=== PATIENT | female | born 1960 | race Caucasian/White ===

== ENCOUNTER 2018-03-03 07:29 | Inpatient (IN) ==
--- NOTE | 2018-03-03 07:43 | ED ---
HPI General Chief complaint: Neuro Symptoms/Deficit Stated complaint: Neuro Time Seen by Provider: 03/03/18 07:36 Source: patient, EMS and RN notes reviewed Mode of arrival: EMS History of Present Illness HPI narrative: 57yF presenting with right upper and lower extremity weakness and slurred speech. 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 She says that she does not take any anticoagulants or antiplatelets. She is currently altered and unable to provide further details of HPI or ROS. Related Data Home Medications Medication Instructions Recorded Confirmed No Known Home Medications 03/03/18 03/03/18 Allergies Allergy/AdvReac Type Severity Reaction Status Date / Time Penicillins Allergy Intermediate Hives Verified 03/03/18 07:36 Sulfa (Sulfonamide Allergy Intermediate Hives Verified 03/03/18 07:36 Antibiotics) Review of Systems ROS Unobtainable unobtainable due to mental status [facility] Medical History Medical History No significant past medical history (Acute) Surgical History Surgical History No history of previous surgery (Acute) Social History Social History Substance History: No History of Abuse Second Hand Smoke Exposure: No Smoking Status: Never smoker How Often Do You Have a Drink Containing Alcohol: Never Recent Travel in [facility] within the Last 8 Weeks: No Recent Out of Country Travel within the Last 8 Weeks: No Exam Const General: healthy appearing [facility] Other: Right lower facial droop, tongue and uvula midline Eyes Other: Pupils 2 mm and reactive bilaterally Chest Chest: normal inspection of the chest Resp Other: Clear to auscultation bilaterally Cardio Rate: regular rate Rhythm: regular rhythm GI Palpation: soft, no guarding and nontender Auscultation: normal bowel sounds Skin General: no rashes or lesions noted Neuro Other: Please see NIHSS as documented on arrival Weakness of right upper and lower extremity Sensation intact throughout Right lower facial droop Slurred speech Altered, unable to answer complex questions Extrem Other: No lower extremity edema Procedures Intubation Time Out Performed: Yes Sedative: etomidate Mg Given: 20 Paralytic: succinylcholine Mg Given: 100 Laryngoscope: Zoila ET Tube Size: 7.5 ET Tube Uncuffed: Yes Tube Secured Depth (cm): 25 Tube Secured Location: teeth Tube Placement Confirmation: visualized tube passing through cords, equal breath sounds bilaterally and no breath sounds over epigastrium Patient Tolerated Procedure: well and no complications Intubation Complications: none Course Consultations Consultation #1: Case discussed with Dr. Saumel (neurosurgery), who recommends keeping the patient's systolic BP 120-130. Cardene drip ordered. Time: 08:22 Initial Documented Vital Signs Temperature 98.0 F 03/03/18 07:33 Pulse Rate 76 03/03/18 07:33 Respiratory Rate 20 03/03/18 07:33 Blood Pressure 176/89 H 03/03/18 07:33 Pulse Oximetry 98 03/03/18 07:33 Last Documented Vital Signs Temperature 97.9 F 03/03/18 08:58 Pulse Rate 70 03/03/18 08:58 Respiratory Rate 14 03/03/18 08:58 Blood Pressure 145/84 H 03/03/18 08:58 Pulse Oximetry 99 03/03/18 08:49 Critical Care Time Critical Care Time: Yes Total Critical Care Time: 35 Attestation: Total critical care time 35 minutes. This includes examining and stabilizing the patient, gathering a history from a source other than the patient (i.e., chart review), formulating a differential diagnosis, ordering and interpreting laboratory tests and EKG, ordering and interpreting radiology tests, discussing the patient's care with other providers (neurosurgery, critical care), titration of multiple drips, and re-evaluation at frequent intervals. Amount of time is separate from teaching, counseling the patient and/ or family, and exclusive of procedures. NIH Stroke Scale NIHSS Time Completed NIHSS Time Completed: 07:42 NIH Stroke Scale Level of Consciousness: 0-Alert Orientation Questions: 0-Answers both correct Responds to Commands: 0-Both tasks correct Gaze Eye Movement: 0-Horizontal movement WNL Visual [place]: 0-No visual field defect Facial Movement: 1-Minor facial palsy Motor Functions Arm LEFT: 0-No drift Motor Functions Arm RIGHT: 2-Falls before 10 seconds Motor Functions Leg LEFT: 0-No drift Motor Functions Leg RIGHT: 2-Falls before 5 seconds Limb Ataxia: 0-No ataxia Sensory Loss: 1-Mild sensory loss Best Language: 0-Normal Articulation: 1-Mild dysarthia Extinction or Inattention Sensory: 0-Absent Total: 7 Medical Decision Making MDM Narrative Medical decision making narrative: Assessment: 57yF presenting with right upper and lower extremity weakness, right facial droop, and slurred speech Plan: A stroke alert was NOT called as the time of onset was not known CTH shows brainstem hemorrhage Labs EKG CXR Case discussed with critical care attending, Dr. Mcginnis, and with neurosurgery attending, Dr. Samuel I also updated the patient on these findings prior to intubation. She vomited once on arrival and a second time after CT, was unable to handle her own secretions or protect her airway, and required emergent intubation. Differential Diagnosis Differential Diagnosis: Differential diagnosis includes, but is not limited to: ischemic stroke, hemorrhagic stroke, brain mass, hypoglycemia Lab Data Result diagrams: 03/03/18 07:00 Lab Results 03/03/18 03/03/18 03/03/18 Range/Units 07:00 07:00 07:00 WBC 6.3 (4.0-11.0) th/mm3 RBC 3.48 L (4.00-5.30) mil/mm3 Hgb 11.2 L (11.6-15.3) gm/dL POC Hgb (Calc) 11.2 L (11.6-15.3) g/dL Hct 33.4 L (35.0-46.0) % POC Hct 33.0 L (35-46.0) % MCV 96.0 (80.0-100.0) fL MCH 32.2 (27.0-34.0) pg MCHC 33.6 (32.0-36.0) % RDW 14.9 (11.6-17.2) % Plt Count 110 L (150-450) th/mm3 MPV 12.2 H (7.0-11.0) fL Neut % (Auto) 62.6 (16.0-70.0) % Lymph % (Auto) 30.9 (9.0-44.0) % [place] % (Auto) 4.2 (0.0-8.0) % Eos % (Auto) 0.9 (0.0-4.0) % Baso % (Auto) 1.4 (0.0-2.0) % Neut # (Auto) 4.0 (1.8-7.7) th/mm3 Lymph # (Auto) 2.0 (1.0-4.8) th/mm3 Ballard # (Auto) 0.3 (0.0-0.9) th/mm3 Eos # (Auto) 0.1 (0.0-0.4) th/mm3 Baso # (Auto) 0.1 (0.0-0.2) th/mm3 WBC Differential . Differential Comment Auto diff final PT 12.1 H (9.8-11.6) sec INR 1.2 Ratio APTT 24.5 (24.3-30.1) sec POC Sodium 138 (137-144) mmol/L POC Potassium 3.1 L (3.6-5.0) mmol/L POC Chloride 101 L (102-111) mmol/L POC BUN 8 (5-21) mg/dL POC Creatinine 1.2 (0.6-1.3) mg/dL POC Glucose 158 H (68-110) mg/dL Total Creatine Kinase 2863 H (26-192) U/L CK-MB (CK-2) 14.3 H (0.5-3.6) ng/mL CK-MB (CK-2) % 0.5 (0.0-4.0) % Troponin I 0.16 H (0.02-0.05) ng/mL 03/03/18 Range/Units 07:34 WBC (4.0-11.0) th/mm3 RBC (4.00-5.30) mil/mm3 Hgb (11.6-15.3) gm/dL POC Hgb (Calc) (11.6-15.3) g/dL Hct (35.0-46.0) % POC Hct (35-46.0) % MCV (80.0-100.0) fL MCH (27.0-34.0) pg MCHC (32.0-36.0) % RDW (11.6-17.2) % Plt Count (150-450) th/mm3 MPV (7.0-11.0) fL Neut % (Auto) (16.0-70.0) % Lymph % (Auto) (9.0-44.0) % Ballard % (Auto) (0.0-8.0) % Eos % (Auto) (0.0-4.0) % Baso % (Auto) (0.0-2.0) % Neut # (Auto) (1.8-7.7) th/mm3 Lymph # (Auto) (1.0-4.8) th/mm3 Ballard # (Auto) (0.0-0.9) th/mm3 Eos # (Auto) (0.0-0.4) th/mm3 Baso # (Auto) (0.0-0.2) th/mm3 WBC Differential Differential Comment PT (9.8-11.6) sec INR Ratio APTT (24.3-30.1) sec POC Sodium (137-144) mmol/L POC Potassium (3.6-5.0) mmol/L POC Chloride (102-111) mmol/L POC BUN (5-21) mg/dL POC Creatinine (0.6-1.3) mg/dL POC Glucose 162 H (68-110) mg/dL Total Creatine Kinase (26-192) U/L CK-MB (CK-2) (0.5-3.6) ng/mL CK-MB (CK-2) % (0.0-4.0) % Troponin I (0.02-0.05) ng/mL Imaging Data Radiologist's impression: Chest X-Ray 03/03/18 07:40 CONCLUSION: No acute findings. Heart size mildly prominent. Head CT 03/03/18 07:40 CONCLUSION: 1. There is hemorrhage in the brainstem/johnathon. No mass effect or midline shift. 2. Fourth ventricle remains patent. 3. Nonspecific white matter changes Dr. Hilario is well aware of these findings.. Head CTA 03/03/18 07:40 CONCLUSION: 1. No large vessel stenosis, aneurysm or thrombosis. Neck CTA 03/03/18 07:40 CONCLUSION: 1. Normal carotid arteries. ECG Data Attestation: I personally reviewed and interpreted this ECG as follows: Interpretation: Rate: 56 BPM Rhythm: Sinus [place]: Normal Intervals: Normal intervals, no blocks, QTc 452 ms Q waves: None T waves: Inverted in V3 ST segments: No elevations or depressions Impression: Non-specific EKG, 1 PVC noted, no previous EKG available for comparison. Discharge Plan Discharge Disposition Patient Disposition: 30 Still Patient Discharge Condition Condition: Critical Discharge Details Diagnosis: Hemorrhagic stroke, Acute respiratory failure Physicians Team ED Provider: Carlie Hilario Rxs /Orders / Referrals /Forms Prescriptions: No Action No Known Home Medications RF: 0 Status ED Status: With Doctor
[2018-03-03 07:56] LABS: Baso # (Auto) 0.1 th/mm3 (0.0-0.2); Baso % (Auto) 1.4 % (0.0-2.0); Eos # (Auto) 0.1 th/mm3 (0.0-0.4); Eos % (Auto) 0.9 % (0.0-4.0); Hematocrit 33.4 % (35.0-46.0); Hemoglobin 11.2 gm/dL (11.6-15.3); Lymph % (Auto) 30.9 % (9.0-44.0); Mean Corpuscular HGB Conc 33.6 % (32.0-36.0); Mean Corpuscular Hemoglobin 32.2 pg (27.0-34.0); Mean Platelet Volume 12.2 fL (7.0-11.0); Mono # (Auto) 0.3 th/mm3 (0.0-0.9); Mono % (Auto) 4.2 % (0.0-8.0); Neut % (Auto) 62.6 % (16.0-70.0); Platelet Count 110 th/mm3 (150-450); Red Blood Count 3.48 mil/mm3 (4.00-5.30); Red Cell Distribution Width 14.9 % (11.6-17.2); White Blood Count 6.3 th/mm3 (4.0-11.0)
[2018-03-03] MEDS: Sod Chloride 0.9% Inj 1,000 ML IV.CONT SCH ×2 (08:06→19:39)
[2018-03-03 08:08] LABS: Activated Partial Thrombo Time 24.5 sec (24.3-30.1); INR 1.2 Ratio; Prothrombin Time 12.1 sec (9.8-11.6)
--- NOTE | 2018-03-03 08:16 | CT ---
EXAM DATE: 03/03/2018 7:55 AM EDT AGE/SEX: 57 years / Female INDICATIONS: Altered mental status. Slurred speech. Right sided weakness. CLINICAL DATA: This is the patient's initial encounter. Patient reports that signs and symptoms have been present for 1 day and indicates a pain score of Nonresponsive. MEDICAL/SURGICAL HISTORY: Non-responsive. Non-responsive. RADIATION DOSE: 34.46 CTDI (mGy) COMPARISON: No prior exams available for comparison. TECHNIQUE: CT of the head without contrast. Using automated exposure control and adjustment of the mA and/or kV according to patient size, radiation dose was kept as low as reasonably achievable to ob tain optimal diagnostic quality images. DICOM format image data is available electronically for revi ew and comparison. FINDINGS: Cerebrum: The ventricles are normal for age. Areas of increased density throughout the white matter. No evidence of midline shift, mass lesion, hemorrhage or acute infarction. No extraaxial fluid col lections are seen. Posterior Fossa: There is increased density in the brainstem/johnathon measuring approximately 1.1 x 2.0 cm. The 4th ventricle is midline. The cerebellopontine angle is unremarkable. Extracranial: The visualized portion of the orbits is intact. Skull: The calvaria is intact. No evidence of skull fracture. CONCLUSION: 1. There is hemorrhage in the brainstem/johnathon. No mass effect or midline shift. 2. Fourth ventricle remains patent. 3. Nonspecific white matter changes Dr. Hilario is well aware of these findings.. Electronically signed by: Teo Pike MD 03/03/2018 8:15 AM EDT
[2018-03-03 08:24] LABS: Troponin I 0.16 ng/mL (0.02-0.05)
[2018-03-03] MEDS ORDERED: Bisacodyl 10 MG Supp RECTAL PRN (08:31)
--- NOTE | 2018-03-03 08:31 | CT ---
EXAM DATE: 03/03/2018 8:24 AM EDT AGE/SEX: 57 years / Female INDICATIONS: Altered mental status. Slurred speech. Right sided weakness. CLINICAL DATA: This is the patient's initial encounter. Patient reports that signs and symptoms have been present for 1 day and indicates a pain score of Nonresponsive. MEDICAL/SURGICAL HISTORY: Non-responsive. Non-responsive. RADIATION DOSE: 28.07 CTDI (mGy) ; Combined studies COMPARISON: No prior exams available for comparison. TECHNIQUE: Volumetric scanning was performed using a multirow detector CT scanner during bolus infus ion of 75 ml Omnipaque 350 (iohexol) nonionic water-soluble contrast as a cumulative dose for multip le exams. The data was postprocessed with a variety of visualization algorithms including full-volu me maximum intensity projection, multiplanar sliding thin-slab reformation, curved-planar reformation , and surface-rendering techniques. Using automated exposure control and adjustment of the mA and/or kV according to patient size, radiation dose was kept as low as reasonably achievable to obtain opti mal diagnostic quality images. DICOM format image data is available electronically for review and co mparison. FINDINGS: Aortic Arch: There is a three-vessel origin of the great vessels from the aorta. No evidence of ost ial narrowing Right Carotid: The common carotid artery is intact. The carotid bulb has a normal configuration wit hout ulceration or narrowing. The internal carotid artery lumen is smooth without stenosis. The ext ernal carotid artery is intact. Left Carotid: The common carotid artery is intact. The carotid bulb has a normal configuration with out ulceration or narrowing. The internal carotid artery lumen is smooth without stenosis. The exte rnal carotid artery is intact. Vertebrals: Dominant left vertebral artery. No stenotic lesions are seen. Percent stenosis is calculated using the diameter of the stenotic region over the diameter of the nor mal distal internal carotid artery. CONCLUSION: 1. Normal carotid arteries. Electronically signed by: Teo Pike MD 03/03/2018 8:30 AM EDT
[2018-03-03] MEDS ORDERED: Magnesium Sulfate Inj 4 GM in Sodium Chlor 0.9% Inj 92 ML IV.SIG PRN (08:35)
[2018-03-03] MEDS ORDERED: Potassium Chlor 40 mEq Premix 40 MEQ/100 ML PIGGYBACK IV.SIG PRN (08:35)
[2018-03-03] MEDS ORDERED: Magnesium Oxide 400 MG Tablet PO PRN (08:35)
[2018-03-03] MEDS ORDERED: Potassium Chloride 25 MEQ Effervescent Tablet PO PRN (08:35)
[2018-03-03] MEDS ORDERED: Sodium Phosphate Inj 30 MMOL in Sodium Chlor 0.9% Inj 250 ML IV.SIG PRN (08:35)
[2018-03-03] MEDS ORDERED: Potassium Phosphate Inj 30 MMOL in Sodium Chlor 0.9% Inj 250 ML IV.SIG PRN (08:35)
[2018-03-03] MEDS ORDERED: Magnesium Sulfate Inj 2 GM in Sodium Chlor 0.9% Inj 96 ML IV.SIG PRN (08:35)
[2018-03-03] MEDS ORDERED: Potassium Phosphate 500 MG Soluble Tablet PO PRN ×2 (08:35)
--- NOTE | 2018-03-03 08:37 | CT ---
EXAM DATE: 03/03/2018 8:32 AM EDT AGE/SEX: 57 years / Female INDICATIONS: Altered mental status. Slurred speech. Right sided weakness. CLINICAL DATA: This is the patient's initial encounter. Patient reports that signs and symptoms have been present for 1 day and indicates a pain score of Nonresponsive. MEDICAL/SURGICAL HISTORY: Non-responsive. Non-responsive. RADIATION DOSE: 28.07 CTDI (mGy) ; Combined studies COMPARISON: [facility] [place], CT HEAD W/O CONTRAST, 03/03/2018. . TECHNIQUE: Volumetric scanning was performed using a multi-row detector CT scanner during bolus infu staecy of 75 ml Omnipaque 350 (iohexol) nonionic water-soluble contrast as a cumulative dose for multi ple exams. The data was post processed with a variety of visualization algorithms including full vo lume maximum intensity projection, multi-planar sliding thin slab reformation, curved planar reformat ion, and surface rendering techniques. Using automated exposure control and adjustment of the mA and /or kV according to patient size, radiation dose was kept as low as reasonably achievable to obtain o ptimal diagnostic quality images. DICOM format image data is available electronically for review and comparison. FINDINGS: There is excellent visualization of the major intracranial arteries out to the second-order branch ve ssels. There is no evidence for aneurysm, vessel truncation or stenosis, and no evidence for vascula r malformation. Dominant left vertebral artery. Basilar artery is normal. No aneurysm or stenosis. Sm all anterior and posterior communicating arteries. CONCLUSION: 1. No large vessel stenosis, aneurysm or thrombosis. Electronically signed by: Teo Pike MD 03/03/2018 8:35 AM EDT
[2018-03-03 08:38] LABS: CKMB Percent 0.5 % (0.0-4.0); Creatine Kinase MB 14.3 ng/mL (0.5-3.6)
[2018-03-03] MEDS: niCARdipine Inj 25 MG in Sodium Chlor 0.9% Inj 240 ML IV.CONT PRN ×2 (08:47→19:40)
[2018-03-03] MEDS ORDERED: Propofol Inj 500 MG/50 ML Vial ONE (09:02)
[2018-03-03] MEDS ORDERED: Succinylcholine Inj 100 MG/5 ML Syringe IV.PUSH ONE (09:04)
[2018-03-03] MEDS ORDERED: Etomidate Inj 20 MG/10 ML Ampul IV.PUSH ONE (09:04)
--- NOTE | 2018-03-03 09:04 | XR ---
EXAM DATE: 03/03/2018 8:43 AM EDT AGE/SEX: 57 years / Female INDICATIONS: Stroke Alert. CLINICAL DATA: This is the patient's initial encounter. Patient reports that signs and symptoms have been present for 1 day and indicates a pain score of 0/10. MEDICAL/SURGICAL HISTORY: None. None. COMPARISON: No prior exams available for comparison. FINDINGS: A single AP view of the chest demonstrates the lungs to be symmetrically aerated without evidence of mass, infiltrate or effusion. The cardiomediastinal contours are mildly prominent. Osseous structure s are intact. CONCLUSION: No acute findings. Heart size mildly prominent. Electronically signed by: Carlo Rowland MD 03/03/2018 9:02 AM EDT
[2018-03-03 09:06] LABS: Bilirubin,Urine Negative (Negative); Clarity,Urine Hazy (Clear); Color,Urine Yellow (Yellw/Straw); Glucose,Urine (UA) Negative (Negative); Leukocyte Esterase,Urine Negative (Negative); Mucus,Urine Few /lpf (Occasional); Nitrite,Urine Negative (Negative); Specific Gravity,Urine 1.024 (1.002-1.035)
[2018-03-03] MEDS: Senna/Docusate Sodium 8.6/50 MG Tablet PO SCH (09:15)
[2018-03-03] MEDS: Etomidate Inj 20 MG/10 ML Ampul IV.PUSH ONE ×2 (09:15→09:45)
[2018-03-03] MEDS ORDERED: Midazolam 50 MG/50 ML Inj 50 MG/50 ML BAG IV.CONT PRN (09:21)
--- NOTE | 2018-03-03 09:23 | P.HPCC ---
History of Present Illness Service: Critical care Chief Complaint: Acute onset right-sided weakness with speech difficulty History of Present Illness: Patient is a 57-year-old -Filipino female who presented to the emergency department today with right upper and lower extremity weakness and slurred speech. Emergency department had difficulty getting detailed history due to impaired speech and acute onset of symptoms. She was unable to tell them when the symptoms started. 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 Dr. Samuel was consulted, he recommended targeting systolic blood pressure 120-130. Patient came in with systolic blood pressure varying from 170-180. She was started on Cardene infusion and critical care medicine was consulted. Patient was almost flaccid on the right side. While in the emergency department patient vomited twice and there was increasing aphasia. Patient was intubated by ER physician for airway protection I evaluated the patient in the emergency department. Currently she is sedated with propofol on the ventilator. Systolic blood pressure 140-150. I recommended increasing Cardene and increasing propofol. I discussed with Dr. Samuel again. We will rescan the patient with a CT brain prior to ICU transfer to rule out increasing hemorrhage or in any obstruction to the fourth ventricle - Diagnosis (1) Pontine hemorrhage (2) Hypertensive emergency (3) Acute respiratory failure (4) Hypokalemia (5) Elevated CPK Inpatient Certification: I certify that the inpatient services were ordered in accordance with Medicare regulations governing the order. This includes certification that hospital inpatient services are reasonable and necessary and in the case of services not specified as inpatient-only under 42 CFR 419.22(n), that they are appropriately provided as inpatient services in accordance to with the 2-midnight benchmark under 43 CFR 412.3(e) Estimated Total Length of Stay (Days): 5 Plans for Post Hospital Care: Not yet determined Review of Systems unobtainable due to endotracheal tube PMFSH - History History Provided By: Patient - Medical / Surgical Hx Neg / Unobtainable Medical Problems Denied: Unable to Obtain Surgical History: Unable to Obtain - Medical History Medical History: Medical History (Last Reviewed 03/03/18 @ 13:17 by Vikki Manuel) No significant past medical history - Surgical History Surgical History: Surgical History (Last Reviewed 03/03/18 @ 13:17 by Vikki Manuel) No history of previous surgery - Tobacco History Second Hand Smoke Exposure: No Smoking Status: Never smoker - Alcohol History How Often Do You Have a Drink Containing Alcohol: Never - Substance Use History Substance History: No History of Abuse - Travel History Recent Travel in the [place] Within the Last 8 Weeks: No Recent Travel Out of the Country Within the Last 8 Weeks: No - Immunization History Tetanus Immunization: >5 Years Hx Influenza Vaccine This Season: Yes Medications and Allergies Active Medications: Active Medications Acetaminophen (Tylenol) 650 mg PO Q6H PRN PRN Reason: PAIN 1-10 AND/OR FEVER >101F Al Hydroxide/Mg Hydroxide (Milk Of Arianna Liq) 30 ml PO Q12H PRN PRN Reason: Mild Constipation Albuterol (Duoneb Neb (Prn)) 1 ampul NEB Q2HR NEB PRN PRN Reason: WHEEZING Bisacodyl (Dulcolax Supp) 10 mg RECTAL DAILY PRN PRN Reason: SEVERE CONSITIPATION Chlorhexidine Gluconate (Chlorhexidine 2% Cloth) 3 pack TOPICAL DAILY@0400 TIKA Stop: 03/09/18 03:59 Chlorhexidine Gluconate (Chlorhexidine 2% Cloth) 3 pack TOPICAL DAILY@0400 PRN PRN Reason: Extra cloth needed Stop: 03/09/18 03:59 Famotidine (Pepcid Pf Inj) 20 mg IV.PUSH Q12HR TIKA Sodium Chloride (Ns Inj) 1,000 mls @ 70 mls/hr IV.CONT .[id number] [facility] Last Admin: 03/03/18 08:06 Dose: 70 mls/hr Nicardipine HCl 25 mg/ Sodium (Chloride) 250 mls @ 50 mls/hr IV.CONT TITRATE PRN; Protocol PRN Reason: Per Protocol Last Admin: 03/03/18 08:47 Dose: 5 mg/hr, 50 mls/hr Magnesium Sulfate Inj 4 gm/ (Sodium Chloride) 100 mls @ 50 mls/hr IV.SIG UNSCH PRN PRN Reason: For Magnesium 0.9 - 1.1 mg/dL Magnesium Sulfate Inj 2 gm/ (Sodium Chloride) 100 mls @ 50 mls/hr IV.SIG UNSCH PRN PRN Reason: For Magnesium 1.2 - 1.6 mg/dL Potassium Chloride (Kcl 40 Meq Premix Inj) 40 meq in 100 mls @ 25 mls/hr IV.SIG Q2H PRN PRN Reason: For Potassium 2.8 - 3.2 mEq/L Potassium Chloride (Kcl 20 Meq Premix Inj) 20 meq in 100 mls @ 50 mls/hr IV.SIG Q2H PRN PRN Reason: For Potassium 3.3 - 3.5 mEq/L Potassium Chloride (Kcl 20 Meq Premix Inj) 20 meq in 100 mls @ 50 mls/hr IV.SIG Q2H PRN PRN Reason: For Potassium 2.8 - 3.2 mEq/L Potassium Phosphate 30 mmol/ (Sodium Chloride) 260 mls @ 42 mls/hr IV.SIG UNSCH PRN PRN Reason: SEE LABEL COMMENTS Sodium Phosphate 30 mmol/ (Sodium Chloride) 260 mls @ 42 mls/hr IV.SIG UNSCH PRN PRN Reason: For Phosphorus < 2.5 mg/dL Potassium Chloride (Kcl 40 Meq Premix Inj) 40 meq in 100 mls @ 25 mls/hr IV.SIG UNSCH PRN PRN Reason: For Potassium 3.3 - 3.5 mEq/L Lactulose (Lactulose Liq) 30 ml PO DAILY PRN PRN Reason: SEVERE CONSITIPATION Magnesium Oxide (Mag-Ox) 800 mg PO UNSCH PRN PRN Reason: For Magnesium 1.2 - 1.6 mg/dL Potassium Bicarb/Potassium Chloride (K-Lyte Cl Eff) 50 meq PO UNSCH PRN PRN Reason: For Potassium 3.3 - 3.5 mEq/L Potassium Phosphate (K-Phos Original) 2,000 mg PO Q4H PRN PRN Reason: Phosphorus Less Than 2.5 mg/dL Potassium Phosphate (K-Phos Original) 2,000 mg PO UNSCH PRN PRN Reason: SEE LABEL COMMENTS Senna/Docusate Sodium (Shona-Colace) 1 tab PO BID [facility] Last Admin: 03/03/18 09:15 Dose: Not Given Sennosides (Senokot) 17.2 mg PO Q12H PRN PRN Reason: Moderate Constipation Sodium Chloride (Ns Flush) 2 ml IV.FLUSH BID TIKA Sodium Chloride (Ns Flush) 2 ml IV.FLUSH PRN PRN PRN Reason: FLUSH AFTER USING IV ACCESS Allergies Allergy/AdvReac Type Severity Reaction Status Date / Time Penicillins Allergy Intermediate Hives Verified 03/03/18 07:36 Sulfa (Sulfonamide Allergy Intermediate Hives Verified 03/03/18 07:36 Antibiotics) Home Medications Medication Instructions Recorded Confirmed Type No Known Home Medications 03/03/18 03/03/18 History Results - Labs CBC & Chem 7: 03/03/18 07:00 03/03/18 13:47 Labs: Short CBC 03/03/18 Range/Units 07:00 WBC 6.3 (4.0-11.0) th/mm3 Hgb 11.2 L (11.6-15.3) gm/dL Hct 33.4 L (35.0-46.0) % Plt Count 110 L (150-450) th/mm3 Cardiac Enzymes 03/03/18 Range/Units 07:00 Total Creatine Kinase 2863 H (26-192) U/L CK-MB (CK-2) 14.3 H (0.5-3.6) ng/mL Troponin I 0.16 H (0.02-0.05) ng/mL Urine 03/03/18 Range/Units 08:35 Urine Color Yellow (Yellw/Straw) Urine Clarity Hazy H (Clear) Urine pH 7.0 (5.0-8.5) Ur Specific [place] 1.024 (1.002-1.035) Urine Protein 30 H (Neg-Trace) mg/dL Urine Glucose (UA) Negative (Negative) mg/dL - Imaging Impressions Chest X-Ray 03/03/18 07:40 CONCLUSION: No acute findings. Heart size mildly prominent. Head CT 03/03/18 07:40 CONCLUSION: 1. There is hemorrhage in the brainstem/johnathon. No mass effect or midline shift. 2. Fourth ventricle remains patent. 3. Nonspecific white matter changes Dr. Hilario is well aware of these findings.. Head CTA 03/03/18 07:40 CONCLUSION: 1. No large vessel stenosis, aneurysm or thrombosis. Neck CTA 03/03/18 07:40 CONCLUSION: 1. Normal carotid arteries. Exam Vital signs: Vital Signs 03/03/18 07:33 03/03/18 07:40 03/03/18 08:13 Temperature 98.0 F 97.9 F Pulse Rate 76 76 61 Respiratory Rate 20 20 Blood Pressure 176/89 H 171/92 H Pulse Oximetry 98 98 99 03/03/18 08:31 03/03/18 08:49 03/03/18 08:58 Temperature 97.9 F 97.8 F 97.9 F Pulse Rate 67 59 L 70 Respiratory Rate 20 20 14 Blood Pressure 180/83 H 183/96 H 145/84 H Pulse Oximetry 98 99 03/03/18 09:19 Temperature 97.9 F Pulse Rate 77 Respiratory Rate 16 Blood Pressure 140/81 Pulse Oximetry 100 Intake & Output 03/02/18 03/03/18 03/03/18 18:59 06:59 18:59 Weight 81.647 kg Narrative: GEN: 57-year-old -Filipino female who is intubated sedated with propofol HEENT: Atraumatic normocephalic. Pupils are 3 mm slightly reactive. Orotracheally intubated NECK: Supple. LUNGS: Air entry equal bilaterally no wheezes or crackles. HEART: S1 and S2 normal, no murmur. On Cardene infusion for systolic blood pressure control ABDOMEN: Soft. Nontender no organomegaly EXTREMITIES: No pedal edema. NEUROLOGIC: Intubated sedated but opens eyes to painful stimuli follows commands with left upper extremity moves left lower extremity spontaneously. Flaccid on right upper and lower extremity very slight withdrawal to pain on right lower. Septic Shock Reassessment Septic shock perfusion: reassessment completed Caprini VTE Risk Assessment Caprini VTE Risk Assessment: Moderate/High Risk (score >= 2) VTE Pharmacological Exception Reason: Hemorrhage Caprini Risk Assessment Model: Point Value = 1 Point Value = 2 Point Value = 3 Point Value = 5 Age 41-60 Minor surgery BMI > 25 kg/m2 Swollen legs Varicose veins or History of unexplained or recurrent spontaneous Oral contraceptives or hormone replacement Sepsis (< 1 month) Serious lung disease, including pneumonia (< 1 month) Abnormal pulmonary function Acute myocardial infarction Congestive heart failure (< 1 month) History of inflammatory bowel disease Medical patient at bed rest Age 61-74 Arthroscopic surgery Major open surgery (> 45 min) Laparoscopic surgery (> 45 min) Malignancy Confined to bed (> 72 hours) Immobilizing plaster cast Central venous access Age >= 75 History of VTE Family history of VTE Factor V Leiden Prothrombin [id number] Lupus anticoagulant Anticardiolipin antibodies Elevated serum homocysteine Heparin-induced thrombocytopenia Other congenital or acquired thrombophilia Stroke (< 1 month) Elective arthroplasty Hip, pelvis, or leg fracture Acute spinal cord injury (< 1 month) Prophylaxis Regimen: Total Risk Factor Score Risk Level Prophylaxis Regimen 0-1 Low Early ambulation 2 Moderate Order ONE of the following: *Sequential Compression Device (SCD) *Heparin 5000 units SQ BID 3-4 Higher Order ONE of the following medications: *Heparin 5000 units SQ TID *Enoxaparin/Lovenox 40 mg SQ daily (WT < 150 kg, CrCl > 30 mL/min) *Enoxaparin/Lovenox 30 mg SQ daily (WT < 150 kg, CrCl > 10-29 mL/min) *Enoxaparin/Lovenox 30 mg SQ BID (WT < 150 kg, CrCl > 30 mL/min) AND/OR *Sequential Compression Device (SCD) 5 or more Highest Order ONE of the following medications: *Heparin 5000 units SQ TID (Preferred with Epidurals) *Enoxaparin/Lovenox 40 mg SQ daily (WT < 150 kg, CrCl > 30 mL/min) *Enoxaparin/Lovenox 30 mg SQ daily (WT < 150 kg, CrCl > 10-29 mL/min) *Enoxaparin/Lovenox 30 mg SQ BID (WT < 150 kg, CrCl > 30 mL/min) AND *Sequential Compression Device (SCD) 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 Status: Acute (2) Hypertensive emergency Code(s): I16.1 - Hypertensive emergency Status: Acute (3) Acute respiratory failure Code(s): J96.00 - Acute respiratory failure, unspecified whether with hypoxia or hypercapnia Status: Acute (4) Hypokalemia Code(s): E87.6 - Hypokalemia Status: Acute (5) Elevated CPK Code(s): R74.8 - Abnormal levels of other serum enzymes Status: Acute - Assessment and Plan Plan: NEURO: Acute brainstem/pontine hemorrhage Acute encephalopathy Right hemiplegia with aphasia -Most likely hypertensive hemorrhage -Propofol and Versed for sedation and ventilator synchrony -Repeat CT of the head due to change in status requiring intubation, rule out increasing bleed and also verify patency of fourth ventricle -Tight blood pressure control target systolic blood pressure 120-130 -Neurosurgery Dr. Samuel -Target sodium 145-150 -CTA of the head and neck essentially negative RESP: Acute respiratory failure -PRVC/AC. Ventilator bundle -DuoNeb every 6 hours scheduled and as needed CV: Hypertensive emergency -Cardene infusion to keep systolic blood pressure less than 120-130 -Use as needed labetalol for additional control. Start scheduled Coreg 6.25 mg twice daily -Normal saline IV fluids 84 mL/h, 2d echo GI: -N.p.o., IV famotidine : Elevated CPK -Monitor renal function closely. Grewal catheter for accurate intake output -Continue aggressive IV hydration ID: -Monitor closely for infection -Checl UA HEME: -Monitor CBC, coags ENDO: Hypokalemia Hyperglycemia -Electrolyte replacement per protocol -Sliding scale insulin, check hemoglobin A1c PROPH: -Bilateral lower extremity SCDs/ROBY. IV famotidine for GI prophylaxis -Chemical DVT prophylaxis is contraindicated LINES: -Utilize peripheral IVs, central line if needed CC time 45 min At this time patient is very critical with hypertensive emergency and acute pontine hemorrhage. Neurosurgery Dr. Samuel is consulted. Will do a repeat scan to evaluate for expansion of the bleed and obstruction. Prognosis remains guarded Code Status: Full Discussed Condition With: Dr Hilario, Dr. Samuel
[2018-03-03] MEDS: Famotidine PF Inj 20 MG/2 ML Vial IV.PUSH SCH (09:31)
--- NOTE | 2018-03-03 09:34 | XR ---
EXAM DATE: 03/03/2018 9:29 AM EDT AGE/SEX: 57 years / Female INDICATIONS: Post Intubation. Stroke Alert. CLINICAL DATA: This is the patient's initial encounter. Patient reports that signs and symptoms have been present for 1 day and indicates a pain score of Nonresponsive. MEDICAL/SURGICAL HISTORY: None. None. COMPARISON: [facility], CHEST 1V SINGLE AP, 03/03/2018. . FINDINGS: Endotracheal tube tip is in the proximal right mainstem bronchus. This should be withdrawn about 3 cm . NG is coiled in the stomach. Mild basilar atelectasis. Heart size enlarged. CONCLUSION: Endotracheal tube tip at orifice of right mainstem bronchus. This should be withdrawn about 3 cm. Electronically signed by: Carlo Rowland MD 03/03/2018 9:33 AM EDT
[2018-03-03] MEDS ORDERED: Labetalol HCl Inj 100 MG/20 ML Vial IV.PUSH PRN (09:37)
[2018-03-03] MEDS: Propofol 1000 mg/100 ml Inj 1,000 MG/100 ML BOTTLE IV.CONT PRN ×2 (09:52→19:42)
[2018-03-03 11:06] LABS: ABG Base Excess 2.1 mmol/L (-2-2); ABG PCO2 30 mmHg (38-42); ABG PO2 224 mmHg (61-120)
--- NOTE | 2018-03-03 11:23 | CT ---
EXAM DATE: 03/03/2018 11:16 AM EDT AGE/SEX: 57 years / Female INDICATIONS: Change in status, F/U bleed. Evaluate fourth ventricle. CLINICAL DATA: This is the patient's initial encounter. Patient reports that signs and symptoms have been present for 1 day and indicates a pain score of Nonresponsive. MEDICAL/SURGICAL HISTORY: Non-responsive. Non-responsive. RADIATION DOSE: 37.66 CTDI (mGy) COMPARISON: [facility] [place], CT HEAD W/O CONTRAST, 03/03/2018. . TECHNIQUE: CT of the head without contrast. Using automated exposure control and adjustment of the mA and/or kV according to patient size, radiation dose was kept as low as reasonably achievable to ob tain optimal diagnostic quality images. DICOM format image data is available electronically for revi ew and comparison. FINDINGS: Cerebrum: Scattered areas of low attenuation throughout the white matter. The ventricles are normal f or age. No evidence of midline shift, mass lesion, or acute infarction. No extraaxial fluid collect ions are seen. Posterior Fossa: Hemorrhage in the brainstem measures 2.2 x 1.3 cm slightly more prominent. Fourth v entricle remains patent. No midline shift or mass effect. The cerebellopontine angle is unremarkable . Extracranial: The visualized portion of the orbits is intact. Skull: The calvaria is intact. No evidence of skull fracture. CONCLUSION: 1. Hemorrhage in the brainstem is slightly more prominent. No midline shift or mass effect. Electronically signed by: Teo Pike MD 03/03/2018 11:22 AM EDT
[2018-03-03 12:25] LABS: ABG Base Excess 0.2 mmol/L (-2-2); ABG PCO2 23 mmHg (38-42); ABG PO2 198 mmHg (61-120)
[2018-03-03] MEDS ORDERED: Norepinephrine Inj 4 MG in Sodium Chlor 0.9% Inj 246 ML IV.SIG PRN (12:34)
[2018-03-03] MEDS ORDERED: Sod Chloride 0.9% Inj 1,000 ML IV.SIG ONE (12:35)
[2018-03-03] MEDS ORDERED: Midazolam Inj 5 MG/ML 1 ML Vial IV.PUSH ONE (12:53)
--- NOTE | 2018-03-03 13:44 | P.PCN ---
Date of procedure: 03/03/18 Pre-op diagnosis: Hypotension, Pressor use, ICH Post-op diagnosis: same Procedure: Right subclavian central line Central line checklist completed, timeout completed. I wore a surgical cap, mask with protective eyewear, full gown and sterile gloves throughout the procedure. Right subclavian region was prepped using chlorhexidine scrub and draped in sterile fashion. Anesthesia was achieved over the vein using 1% lidocaine. The introducer needle was inserted into the right subclavian vein. Venous blood was withdrawn. The syringe was removed and a guidewire was advanced into the introducer needle. A small incision was made at the skin surface with a scalpel and the introducer needle was exchanged for a dilator over the guidewire. After appropriate dilation was obtained, the dilator was exchanged over the wire for a triple lumen, 7F, antibiotic coated central venous catheter. The wire was removed and the catheter was sutured in place at 16 cm. A sterile central line dressing was placed over the catheter at the insertion site. The patient tolerated the procedure without any hemodynamic compromise. At time of procedure completion, all ports aspirated and flushed properly. Post-procedure chest x-ray is pending at this time. Anesthesia: regional Surgeon: Diallo Mcginnis Estimated blood loss (mL): 2 Pathology: none sent Condition: critical Disposition: ICU
[2018-03-03 13:50] LABS: Barbiturate Screen,Urine Neg (Neg)
--- NOTE | 2018-03-03 13:50 | P.PCN ---
Date of procedure: 03/03/18 Pre-op diagnosis: Hypotension, ICH, invasive monitoring Post-op diagnosis: same Procedure: Left radial arterial line placement Arterial line checklist completed, timeout completed. I wore a surgical cap, mask with protective eyewear, full gown and sterile gloves throughout the procedure. Left radial artery region was prepped using chlorhexidine scrub and draped in sterile fashion. The introducer needle was inserted into the left radial artery and arterial blood was obtained. A guidewire was advanced into the introducer needle. Following this a single lumen, 20 G arterial catheter was placed using Seldinger technique. The wire was removed and the catheter was sutured in place and sterile arterial line dressing was placed over the catheter at the insertion site. The patient tolerated the procedure without any hemodynamic compromise. Anesthesia: regional Surgeon: Diallo Mcginnis Estimated blood loss (mL): 2 Pathology: none sent Condition: critical Disposition: ICU
[2018-03-03 13:56] LABS: Amphetamine Screen,Urine Neg (Neg); Cannabinoid Screen,Urine Neg (Neg); Cocaine Screen,Urine Neg (Neg)
[2018-03-03 13:58] LABS: Opiate Screen,Urine Neg (Neg)
--- NOTE | 2018-03-03 14:16 | XR ---
EXAM DATE: 03/03/2018 2:12 PM EDT AGE/SEX: 57 years / Female INDICATIONS: Evaluate right side central line placement. CLINICAL DATA: This is the patient's subsequent encounter. Patient reports that signs and symptoms h ave been present for 1 day and indicates a pain score of Nonresponsive. MEDICAL/SURGICAL HISTORY: Non-responsive. Non-responsive. COMPARISON: [facility], CHEST 1V SINGLE AP, 03/03/2018. . FINDINGS: Endotracheal tube tip is at the chelsy. This should be withdrawn about 3 cm. NG tube coiled in stomac h. Minimal basilar atelectasis. Heart size enlarged. Right central line in superior vena cava. CONCLUSION: Right central line in superior vena cava. No pneumothorax. Endotracheal tube at chelsy. This should be withdrawn 2 to 3 cm. Electronically signed by: Carlo Rowland MD 03/03/2018 2:15 PM EDT
[2018-03-03] MEDS: Potassium Chlor 40 mEq Premix 40 MEQ/100 ML PIGGYBACK IV.SIG PRN ×2 (15:12→19:27)
[2018-03-03 15:27] LABS: Alanine Aminotransferase 92 U/L (10-53); Alkaline Phosphatase 58 U/L (45-117); Anion Gap 11 meq/L (5-15); Aspartate Aminotransferase 109 U/L (15-37); Blood Urea Nitrogen 8 mg/dL (7-18); Carbon Dioxide 22.5 meq/L (21.0-32.0); Chloride 109 meq/L (98-107); Glomerular Filtration Rate 49 mL/min (>89); Glucose,Random 130 mg/dL (74-106); Sodium 142 meq/L (136-145); Total Protein 7.4 g/dL (6.4-8.2)
[2018-03-03 15:31] LABS: Potassium 2.6 meq/L (3.5-5.1)
[2018-03-03 17:21] LABS: Hemoglobin A1c 5.4 % (4.3-6.0)
[2018-03-03] MEDS: Dextrose 50% in Water 50 ML Vial IV.PUSH PRN (17:42)
--- NOTE | 2018-03-03 18:32 | P.CONNS ---
History of Present Illness Service: Neurosurgery Requesting Physician: Diallo Mcginnis Reason for Consult: Brainstem CVA Primary Care Provider: UNKNOWN Chief Complaint: Acute onset right-sided weakness with speech difficulty PMFSH - History History Provided By: Patient - Medical / Surgical Hx Neg / Unobtainable Medical Problems Denied: Unable to Obtain - Medical History Medical History: Medical History (Last Reviewed 03/03/18 @ 13:17 by Vikki Manuel) No significant past medical history - Surgical History Surgical History: Surgical History (Last Reviewed 03/03/18 @ 13:17 by Vikki Manuel) No history of previous surgery - Tobacco History Second Hand Smoke Exposure: No Smoking Status: Never smoker - Alcohol History How Often Do You Have a Drink Containing Alcohol: Never - Substance Use History Substance History: No History of Abuse - Travel History Recent Travel in the [place] Within the Last 8 Weeks: No Recent Travel Out of the Country Within the Last 8 Weeks: No - Immunization History Tetanus Immunization: >5 Years Hx Influenza Vaccine This Season: Yes Medications and Allergies Active Medications: Active Medications Acetaminophen (Tylenol) 650 mg PO Q6H PRN PRN Reason: PAIN 1-10 AND/OR FEVER >101F Al Hydroxide/Mg Hydroxide (Milk Of Magnmeredith Liq) 30 ml PO Q12H PRN PRN Reason: Mild Constipation Albuterol (Duoneb Neb (Prn)) 1 ampul NEB Q2HR NEB PRN PRN Reason: WHEEZING Bisacodyl (Dulcolax Supp) 10 mg RECTAL DAILY PRN PRN Reason: SEVERE CONSITIPATION Carvedilol (Coreg) 6.25 mg PO BID [facility] Chlorhexidine Gluconate (Chlorhexidine 2% Cloth) 3 pack TOPICAL DAILY@0400 TIKA Stop: 03/09/18 03:59 Chlorhexidine Gluconate (Chlorhexidine 2% Cloth) 3 pack TOPICAL DAILY@0400 PRN PRN Reason: Extra cloth needed Stop: 03/09/18 03:59 Dextrose (D50w Vial) 50 ml IV.PUSH UNSCH PRN PRN Reason: PER HYPOGLYCEMIA PROTOCOL Last Admin: 03/03/18 17:42 Dose: 50 ml Famotidine (Pepcid Pf Inj) 20 mg IV.PUSH Q12HR TIKA Last Admin: 03/03/18 09:31 Dose: 20 mg Glucagon (Glucagon Inj) 1 mg OTHER PRN PRN PRN Reason: for Hypoglycemia Protocol Sodium Chloride (Ns Inj) 1,000 mls @ 70 mls/hr IV.CONT .[id number] TIKA Last Admin: 03/03/18 08:06 Dose: 70 mls/hr Nicardipine HCl 25 mg/ Sodium (Chloride) 250 mls @ 50 mls/hr IV.CONT TITRATE PRN; Protocol PRN Reason: Per Protocol Last Admin: 03/03/18 08:47 Dose: 5 mg/hr, 50 mls/hr Magnesium Sulfate Inj 4 gm/ (Sodium Chloride) 100 mls @ 50 mls/hr IV.SIG UNSCH PRN PRN Reason: For Magnesium 0.9 - 1.1 mg/dL Magnesium Sulfate Inj 2 gm/ (Sodium Chloride) 100 mls @ 50 mls/hr IV.SIG UNSCH PRN PRN Reason: For Magnesium 1.2 - 1.6 mg/dL Potassium Chloride (Kcl 40 Meq Premix Inj) 40 meq in 100 mls @ 25 mls/hr IV.SIG Q2H PRN PRN Reason: For Potassium 2.8 - 3.2 mEq/L Last Admin: 03/03/18 15:12 Dose: 25 mls/hr Potassium Chloride (Kcl 20 Meq Premix Inj) 20 meq in 100 mls @ 50 mls/hr IV.SIG Q2H PRN PRN Reason: For Potassium 3.3 - 3.5 mEq/L Potassium Chloride (Kcl 20 Meq Premix Inj) 20 meq in 100 mls @ 50 mls/hr IV.SIG Q2H PRN PRN Reason: For Potassium 2.8 - 3.2 mEq/L Potassium Phosphate 30 mmol/ (Sodium Chloride) 260 mls @ 42 mls/hr IV.SIG UNSCH PRN PRN Reason: SEE LABEL COMMENTS Sodium Phosphate 30 mmol/ (Sodium Chloride) 260 mls @ 42 mls/hr IV.SIG UNSCH PRN PRN Reason: For Phosphorus < 2.5 mg/dL Potassium Chloride (Kcl 40 Meq Premix Inj) 40 meq in 100 mls @ 25 mls/hr IV.SIG UNSCH PRN PRN Reason: For Potassium 3.3 - 3.5 mEq/L Propofol (Diprivan 1000 Mg/100 Ml Inj) 1,000 mg in 100 mls @ 2.449 mls/hr IV.CONT TITRATE PRN; Protocol PRN Reason: Per Protocol Last Titration: 03/03/18 10:10 Dose: 15 mcg/kg/min, 7.35 mls/hr Midazolam HCl (Versed Inj) 50 mg in 50 mls @ 2 mls/hr IV.CONT TITRATE PRN; Protocol PRN Reason: Per Protocol Norepinephrine Bitartrate 4 mg (/ Sodium Chloride) 250 mls @ 7.5 mls/hr IV.SIG TITRATE PRN; Protocol PRN Reason: Per Protocol Insulin Human Regular (Novolin R Correctional Sugar Inj) 0 units SQ Q6HR TIKA; Protocol Labetalol HCl (Trandate Inj) 200 mg IV.PUSH Q2H PRN PRN Reason: HYPERTENSION Lactulose (Lactulose Liq) 30 ml PO DAILY PRN PRN Reason: SEVERE CONSITIPATION Magnesium Oxide (Mag-Ox) 800 mg PO UNSCH PRN PRN Reason: For Magnesium 1.2 - 1.6 mg/dL Potassium Bicarb/Potassium Chloride (K-Lyte Cl Eff) 50 meq PO UNSCH PRN PRN Reason: For Potassium 3.3 - 3.5 mEq/L Potassium Phosphate (K-Phos Original) 2,000 mg PO Q4H PRN PRN Reason: Phosphorus Less Than 2.5 mg/dL Potassium Phosphate (K-Phos Original) 2,000 mg PO UNSCH PRN PRN Reason: SEE LABEL COMMENTS Senna/Docusate Sodium (Shona-Colace) 1 tab PO BID [facility] Last Admin: 03/03/18 09:15 Dose: Not Given Sennosides (Senokot) 17.2 mg PO Q12H PRN PRN Reason: Moderate Constipation Sodium Chloride (Ns Flush) 2 ml IV.FLUSH BID [facility] Last Admin: 03/03/18 09:31 Dose: Not Given Sodium Chloride (Ns Flush) 2 ml IV.FLUSH PRN PRN PRN Reason: FLUSH AFTER USING IV ACCESS Terbutaline Sulfate (Brethine Inj) 1 mg SQ UNSCH PRN PRN Reason: For Extravasation Allergies Allergy/AdvReac Type Severity Reaction Status Date / Time Penicillins Allergy Intermediate Hives Verified 03/03/18 07:36 Sulfa (Sulfonamide Allergy Intermediate Hives Verified 03/03/18 07:36 Antibiotics) Home Medications Medication Instructions Recorded Confirmed Type No Known Home Medications 03/03/18 03/03/18 History Exam Vital signs: Vital Signs 03/03/18 07:33 03/03/18 07:40 03/03/18 08:13 Temperature 98.0 F 97.9 F Pulse Rate 76 76 61 Respiratory Rate 20 20 Blood Pressure 176/89 H 171/92 H Pulse Oximetry 98 98 99 03/03/18 08:31 03/03/18 08:49 03/03/18 08:58 Temperature 97.9 F 97.8 F 97.9 F Pulse Rate 67 59 L 70 Respiratory Rate 20 20 14 Blood Pressure 180/83 H 183/96 H 145/84 H Pulse Oximetry 98 99 03/03/18 09:00 03/03/18 09:19 03/03/18 09:46 Temperature 97.9 F 97.9 F Pulse Rate 77 74 Respiratory Rate 16 16 16 Blood Pressure 140/81 130/76 Pulse Oximetry 100 100 100 03/03/18 09:55 03/03/18 10:31 03/03/18 11:33 Temperature 97.8 F 97.9 F Pulse Rate 77 76 Respiratory Rate 16 16 16 Blood Pressure 127/74 128/72 Pulse Oximetry 100 100 100 03/03/18 12:00 03/03/18 13:01 03/03/18 13:10 Temperature Pulse Rate 61 Respiratory Rate 14 Blood Pressure Pulse Oximetry 100 100 03/03/18 15:58 Temperature Pulse Rate Respiratory Rate 14 Blood Pressure Pulse Oximetry 100 Intake & Output 03/02/18 03/03/18 03/03/18 18:59 06:59 18:59 Weight 81.647 kg Results - Laboratory Findings CBC and BMP: 03/03/18 07:00 03/03/18 13:47 Abnormal lab findings: Abnormal Labs 03/03/18 03/03/18 03/03/18 07:00 07:00 07:00 RBC 3.48 L Hgb 11.2 L POC Hgb (Calc) 11.2 L Hct 33.4 L POC Hct 33.0 L Plt Count 110 L MPV 12.2 H PT 12.1 H ABG pH ABG pCO2 ABG pO2 ABG Base Excess Hemoglobin POC Potassium 3.1 L Potassium POC Chloride 101 L Chloride Creatinine Estimated GFR POC Glucose 158 H Random Glucose Calcium AST ALT Total Creatine Kinase 2863 H CK-MB (CK-2) 14.3 H Troponin I 0.16 H Urine Clarity Urine Protein Urine Mucus 03/03/18 03/03/18 03/03/18 07:34 08:35 10:56 RBC Hgb POC Hgb (Calc) Hct POC Hct Plt Count MPV PT ABG pH 7.53 H* ABG pCO2 30 L ABG pO2 224 H ABG Base Excess 2.1 H Hemoglobin 11.4 L POC Potassium Potassium POC Chloride Chloride Creatinine Estimated GFR POC Glucose 162 H Random Glucose Calcium AST ALT Total Creatine Kinase CK-MB (CK-2) Troponin I Urine Clarity Hazy H Urine Protein 30 H Urine Mucus Few H 03/03/18 03/03/18 03/03/18 12:15 13:47 17:38 RBC Hgb POC Hgb (Calc) Hct POC Hct Plt Count MPV PT ABG pH 7.58 H* ABG pCO2 23 L* ABG pO2 198 H ABG Base Excess Hemoglobin 10.4 L POC Potassium Potassium 2.6 L* POC Chloride Chloride 109 H Creatinine 1.13 H Estimated GFR 49 L POC Glucose 63 L Random Glucose 130 H Calcium 8.0 L AST 109 H ALT 92 H Total Creatine Kinase CK-MB (CK-2) Troponin I Urine Clarity Urine Protein Urine Mucus 03/03/18 18:13 RBC Hgb POC Hgb (Calc) Hct POC Hct Plt Count MPV PT ABG pH ABG pCO2 ABG pO2 ABG Base Excess Hemoglobin POC Potassium Potassium POC Chloride Chloride Creatinine Estimated GFR POC Glucose 117 H Random Glucose Calcium AST ALT Total Creatine Kinase CK-MB (CK-2) Troponin I Urine Clarity Urine Protein Urine Mucus - Diagnostic Findings Additional findings: 03/03/18 CT Head images reviewed. Agree with followin. There is hemorrhage in the brainstem/johnathon. No mass effect or midline shift. 2. Fourth ventricle remains patent. 3. Nonspecific white matter changes Assessment and Plan - Plan Impression: Pontine ICH Plan: ISC Vent per processing operator SBP 120-160 range F/U CT head D/W family
--- NOTE | 2018-03-03 23:05 | ECG ---
Date Performed: 03/03/2018 Time Performed: 08:11:01 PTAGE: 57 years EKG: SINUS BRADYCARDIA WITH OCCASIONAL VENTRICULAR PREMATURE COMPLEXES WITH OCCASIONAL SUPRAVENT RICULAR PREMATURE COMPLEXES NONSPECIFIC ST & T-WAVE ABNORMALITY BORDERLINE ECG INTERPRETATION BASED O N A DEFAULT AGE OF 39 YEARS NO PREVIOUS TRACING DOCTOR: Taran Jerome Interpretating Date/Time 03/03/2018 23:05:01
[2018-03-04] MEDS: Carvedilol 6.25 MG Tablet PO SCH ×3 (00:34→21:04)
[2018-03-04] MEDS: Famotidine PF Inj 20 MG/2 ML Vial IV.PUSH SCH ×3 (00:35→21:04)
[2018-03-04] MEDS: Senna/Docusate Sodium 8.6/50 MG Tablet PO SCH ×3 (00:35→21:04)
[2018-03-04] MEDS: Sod Chloride 0.9% Inj 1,000 ML IV.CONT SCH ×2 (00:35→12:16)
[2018-03-04] MEDS: Insulin NovoLIN Regular Correctional Sugar Inj SQ SCH ×5 (00:39→19:33)
[2018-03-04] MEDS: niCARdipine Inj 25 MG in Sodium Chlor 0.9% Inj 240 ML IV.CONT PRN ×3 (00:41→22:13)
[2018-03-04] MEDS: Dextrose 50% in Water 50 ML Vial IV.PUSH PRN (00:41)
[2018-03-04] MEDS ORDERED: Chlorhexidine Gluconate 2% 1 Pack (2 Cloths) TOPICAL PRN (04:00)
[2018-03-04] MEDS: Chlorhexidine Gluconate 2% 1 Pack (2 Cloths) TOPICAL SCH (04:34)
[2018-03-04 04:47] LABS: Baso # (Auto) 0.1 th/mm3 (0.0-0.2); Baso % (Auto) 0.9 % (0.0-2.0); Eos % (Auto) 0.4 % (0.0-4.0); Hematocrit 33.7 % (35.0-46.0); Hemoglobin 11.6 gm/dL (11.6-15.3); Lymph # (Auto) 1.1 th/mm3 (1.0-4.8); Lymph % (Auto) 12.9 % (9.0-44.0); Mean Corpuscular HGB Conc 34.3 % (32.0-36.0); Mean Corpuscular Hemoglobin 33.4 pg (27.0-34.0); Mean Corpuscular Volume 97.2 fL (80.0-100.0); Mean Platelet Volume 12.2 fL (7.0-11.0); Mono # (Auto) 0.4 th/mm3 (0.0-0.9); Neut # (Auto) 6.9 th/mm3 (1.8-7.7); Neut % (Auto) 80.8 % (16.0-70.0); Platelet Count 103 th/mm3 (150-450); Red Blood Count 3.47 mil/mm3 (4.00-5.30); Red Cell Distribution Width 14.9 % (11.6-17.2); White Blood Count 8.6 th/mm3 (4.0-11.0)
[2018-03-04 04:57] LABS: Alanine Aminotransferase 79 U/L (10-53); Albumin 3.7 g/dL (3.4-5.0); Alkaline Phosphatase 51 U/L (45-117); Anion Gap 11 meq/L (5-15); Aspartate Aminotransferase 88 U/L (15-37); Blood Urea Nitrogen 6 mg/dL (7-18); Calcium 7.6 mg/dL (8.5-10.1); Carbon Dioxide 22.2 meq/L (21.0-32.0); Chloride 110 meq/L (98-107); Glomerular Filtration Rate 54 mL/min (>89); Glucose,Random 89 mg/dL (74-106); Magnesium 2.1 mg/dL (1.5-2.5); Sodium 143 meq/L (136-145); Total Protein 7.2 g/dL (6.4-8.2)
[2018-03-04 05:06] LABS: Potassium 2.8 meq/L (3.5-5.1)
--- NOTE | 2018-03-04 08:47 | P.PNCC ---
Subjective Subjective Remarks/Hospital Course: Patient is a 57-year-old -Thai female who presented to the emergency department today with right upper and lower extremity weakness and slurred speech. Emergency department had difficulty getting detailed history due to impaired speech and acute onset of symptoms. She was unable to tell them when the symptoms started. 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 Dr. Samuel was consulted, he recommended targeting systolic blood pressure 120-130. Patient came in with systolic blood pressure varying from 170-180. She was started on Cardene infusion and critical care medicine was consulted. Patient was almost flaccid on the right side. While in the emergency department patient vomited twice and there was increasing aphasia. Patient was intubated by ER physician for airway protection I evaluated the patient in the emergency department. Currently she is sedated with propofol on the ventilator. Systolic blood pressure 140-150. I recommended increasing Cardene and increasing propofol. I discussed with Dr. Samuel again. We will rescan the patient with a CT brain prior to ICU transfer to rule out increasing hemorrhage or in any obstruction to the fourth ventricle SUBJ 03/04/18: Patient remains intubated sedated with propofol. On Cardene infusion for blood pressure control. Neurosurgery recommends continued medical management with aggressive blood pressure control target 120-160. Repeat CT head yesterday slight increase in the blood, fourth ventricle remain patent. Will repeat CT scan 03/05/18 Objective Vital Signs / I&O: Vital Signs 03/03/18 08:49 03/03/18 08:58 03/03/18 09:00 Temperature 97.8 F 97.9 F Pulse Rate 59 L 70 Respiratory Rate 20 14 16 Blood Pressure 183/96 H 145/84 H Pulse Oximetry 99 100 03/03/18 09:19 03/03/18 09:46 03/03/18 09:55 Temperature 97.9 F 97.9 F 97.8 F Pulse Rate 77 74 77 Respiratory Rate 16 16 16 Blood Pressure 140/81 130/76 127/74 Pulse Oximetry 100 100 100 03/03/18 10:31 03/03/18 11:33 03/03/18 12:00 Temperature 97.9 F Pulse Rate 76 61 Respiratory Rate 16 16 Blood Pressure 128/72 Pulse Oximetry 100 100 03/03/18 13:01 03/03/18 13:10 03/03/18 15:58 Temperature Pulse Rate Respiratory Rate 14 14 Blood Pressure Pulse Oximetry 100 100 100 03/03/18 16:00 03/03/18 18:00 03/03/18 19:00 Temperature 97.7 F 98.8 F Pulse Rate 61 61 70 Respiratory Rate 14 14 Blood Pressure 138/83 138/80 Pulse Oximetry 100 100 03/03/18 19:55 03/03/18 20:00 03/03/18 21:00 Temperature 98.8 F 98.8 F Pulse Rate 70 70 Respiratory Rate 14 14 Blood Pressure 146/80 H 136/76 Pulse Oximetry 99 100 100 03/03/18 22:00 03/03/18 23:00 03/03/18 23:18 Temperature 97.5 F L Pulse Rate 78 75 Respiratory Rate 14 Blood Pressure 127/68 Pulse Oximetry 96 100 03/04/18 00:00 03/04/18 01:00 03/04/18 02:00 Temperature 97.4 F L Pulse Rate 75 57 L 58 L Respiratory Rate 14 Blood Pressure 130/90 Pulse Oximetry 03/04/18 02:55 03/04/18 04:00 03/04/18 04:22 Temperature 98.7 F Pulse Rate 57 L 63 Respiratory Rate 14 14 Blood Pressure 108/75 Pulse Oximetry 100 100 03/04/18 05:00 03/04/18 06:00 03/04/18 08:32 Temperature Pulse Rate 56 L 65 Respiratory Rate 14 Blood Pressure Pulse Oximetry 100 Intake & Output 03/03/18 03/04/18 03/04/18 18:59 06:59 18:59 Intake Total 250 / 250 1450 / 1450 0 / 0 Output Total 2200 / 2200 Balance 250 / 250 1450 / 1450 -2200 / -2200 Weight 78.1 kg 78.1 kg 71.5 kg Intake: IV 250 / 250 1450 / 1450 Diprivan 1000 mg/100 ml Inj 1, 100 / 100 000 mg In 100 ml @ 5 MCG/KG/MIN 2.449 mls/hr IV.CONT TITRATE PRN Rx#:[id number] NS Inj 1,000 ML @ 70 mls/hr IV. 1000 / 1000 CONT .[id number] [facility] Rx#:[id number] Cardene Inj 25 MG In NS Inj 240 250 / 250 250 / 250 ML @ 5 MG/HR 50 mls/hr IV.CONT TITRATE PRN Rx#:[id number] KCl 40 mEq Premix Inj 40 meq In 100 / 100 100 ml @ 25 mls/hr IV.SIG Q2H PRN Rx#:[id number] Oral 0 / 0 Output: Urine Amount (Catheter) 0 / 0 Indwelling Urethral Catheter 0 / 0 Other: Weight On Admission 78.1 kg Result Diagrams: 03/04/18 04:15 03/04/18 04:15 Other Results: GEN: 57-year-old -Thai female who is intubated sedated with propofol HEENT: Atraumatic normocephalic. Pupils are 3 mm slightly reactive. Orotracheally intubated NECK: Supple. No JVD LUNGS: Air entry equal bilaterally no wheezes or crackles. HEART: S1 and S2 normal, no murmur. On Cardene infusion at 7.5 mg/h for systolic blood pressure control ABDOMEN: Soft. Nontender no organomegaly EXTREMITIES: No pedal edema. NEUROLOGIC: Intubated sedated but opens eyes to painful stimuli intermittently follows commands with left upper extremity moves left lower extremity spontaneously. Flaccid on right upper and lower extremity very slight withdrawal to pain on right lower. 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 Status: Acute (2) Hypertensive emergency Code(s): I16.1 - Hypertensive emergency Status: Acute (3) Acute respiratory failure Code(s): J96.00 - Acute respiratory failure, unspecified whether with hypoxia or hypercapnia Status: Inactive (4) Hypokalemia Code(s): E87.6 - Hypokalemia Status: Acute (5) Elevated CPK Code(s): R74.8 - Abnormal levels of other serum enzymes Status: Acute - Assessment and Plan Plan: NEURO: Acute pontine hemorrhage Acute encephalopathy Right hemiplegia with aphasia -Most likely hypertensive hemorrhage -Propofol for sedation and ventilator synchrony -Repeat CT of the head due to change in status showed slight increase in blood, fourth ventricle remains patent -Target systolic blood pressure less than 120-150 -Neurosurgery Dr. Samuel, repeat CT scan tomorrow a.m. -Target sodium 145-150 -CTA of the head and neck essentially negative RESP: Acute respiratory failure -PRVC/AC. Ventilator bundle -DuoNeb every 6 hours scheduled and as needed -Start weaning trials in 24 hours, if repeat CT remains unchanged CV: Hypertensive emergency -Cardene infusion to keep systolic blood pressure less than 120-150 -Use as needed labetalol for additional control. Start scheduled Coreg 6.25 mg twice daily -Normal saline IV fluids 84 mL/h, 2d echo GI: -N.p.o., IV famotidine -Start tube feeds with Jevity -Bowel regimen : Elevated CPK Acute kidney insufficiency -Monitor renal function closely. Grewal catheter for accurate intake output -Continue aggressive IV hydration ID: -Monitor closely for infection -Check UA HEME: -Monitor CBC, coags ENDO: Hypokalemia Hyperglycemia -Electrolyte replacement per protocol -Sliding scale insulin, f/u hemoglobin A1c PROPH: -Bilateral lower extremity SCDs/ROBY. IV famotidine for GI prophylaxis -Chemical DVT prophylaxis is contraindicated LINES: -Utilize peripheral IVs, central line if needed CC time 35 min At this time patient is very critical with hypertensive emergency and potentially life-threatening acute pontine hemorrhage. Neurosurgery Dr. Samuel is following. Will do a repeat scan to evaluate for expansion of the bleed and obstruction plan for repeat scan 03/05/2018. Prognosis remains guarded Code Status: Full Discussed Condition With: Dr. Samuel
[2018-03-04] MEDS: Potassium Chlor 40 mEq Premix 40 MEQ/100 ML PIGGYBACK IV.SIG PRN (10:29)
[2018-03-04] MEDS: Propofol 1000 mg/100 ml Inj 1,000 MG/100 ML BOTTLE IV.CONT PRN ×2 (12:15→22:13)
--- NOTE | 2018-03-04 15:41 | P.DIET ---
Nutritional Evaluation Type of nutrition evaluation: initial Nutrition consult regarding: Tube Feeding Subjective Subjective Comments: Pts friends and boss in room at time of visit. Pts boss states her and the pt are the same height and the boss is 63in. Objective - Diagnosis Hemorrhagic Stroke, Acute Hypoxic Respiratory Failure - Objective % IBW: 137 (XZP=277# (based on ht given by friends)) Body Weight Used for Calculations: IBW (52.3kg) Energy Needs - Lower Range (kCal/kg): 25 Energy Needs - Upper Range (kCal/kg): 30 Lower Limit kCal/kg (kCals): 1,308 Upper Limit kCal/kg (kCals): 1,569 Lower Limit Protein Factor (Grams per Kg): 1.2 Upper Limit Protein Factor (Grams per Kg): 1.5 Lower Protein Needs (Protein): 63 Upper Protein Needs (Protein): 78 Dietitian Reviewed in Medical Record: Curent medications, Intake & Output, Labs , Medical history, Tube feeding Diet Order: TF Only Objective Comments: Meds: Propofol Labs: K 2.8 (-) BM Feeding - Current Tube Feeding Tube Feeding Product: Jevity 1.5 Tube Feeding Method: Pump Tube Feeding Rate: 50 Current kCals Provided by Tube Feedin,800 Current Protein Provided by Tube Feeding (gPRO): 77 Current Free H2O Provided (m/l): 912 Lipid kCals From Diprivan: 259 Assessment Assessment: Pt admitted for hemorrhagic stroke and acute hypoxic respiratory failure. Ht discrepancy noted in chart so ht was obtained by pt's friends in room (63in. per visitors). Pt did look to be 63in, but this is an estimation. Current TF order of Jevity 1.5 @ 50mls/hr is appropriate for this pt and it will provide 100% of pts nutritional requirements as stated above. TF was running at 10mls/ hr on visit. Please fix ht discrepancy in EMR. Dietitian following. Recommendations: 1. Continue Jevity 1.5 @ 50mls/hr. 2. Please fix ht discrepancy in EMR. Dietitian to Monitor: Lab values, Intake & Output, Tube feeding tolerance, Weight change, Medical course
[2018-03-05] MEDS: Sod Chloride 0.9% Inj 1,000 ML IV.CONT SCH ×3 (00:17→17:07)
[2018-03-05] MEDS: Insulin NovoLIN Regular Correctional Sugar Inj SQ SCH ×4 (00:31→18:34)
[2018-03-05] MEDS: Potassium Chlor 40 mEq Premix 40 MEQ/100 ML PIGGYBACK IV.SIG PRN ×2 (01:33→06:30)
--- NOTE | 2018-03-05 05:21 | CT ---
EXAM DATE: 03/05/2018 4:56 AM EDT AGE/SEX: 57 years / Female INDICATIONS: Evaluate hemorrhage. CLINICAL DATA: This is the patient's initial encounter. Patient reports that signs and symptoms have been present for 1 day and indicates a pain score of 5/10. MEDICAL/SURGICAL HISTORY: Stroke. None. RADIATION DOSE: 36.49 CTDI (mGy) COMPARISON: [facility] [place]/O [place]AST, 03/03/2018. . TECHNIQUE: CT of the head without contrast. Using automated exposure control and adjustment of the mA and/or kV according to patient size, radiation dose was kept as low as reasonably achievable to ob tain optimal diagnostic quality images. DICOM format image data is available electronically for revi ew and comparison. FINDINGS: There is pontine hemorrhage again noted, not significantly changed. There is moderate patchy and conf luent hypodensity in the bilateral periventricular white matter and centrum semiovale. There are no f ractures. CONCLUSION: 1. Stable pontine hemorrhage. . Electronically signed by: Adriano Nix MD 03/05/2018 5:20 AM EDT
--- NOTE | 2018-03-05 05:22 | XR ---
EXAM DATE: 03/05/2018 4:58 AM EDT AGE/SEX: 57 years / Female INDICATIONS: Short of breath. CLINICAL DATA: This is the patient's subsequent encounter. Patient reports that signs and symptoms h ave been present for 1 week and indicates a pain score of 0/10. MEDICAL/SURGICAL HISTORY: Non-responsive. Non-responsive. COMPARISON: C, CHEST 1V SINGLE AP, 03/03/2018. . FINDINGS: Endotracheal tube, right subclavian line and enteric tube again noted. The ET tube remains at the lev el of the chelsy. The lungs are clear. CONCLUSION: ET tube at the chelsy. Clear lungs. Electronically signed by: Adriano Nix MD 03/05/2018 5:21 AM EDT
[2018-03-05] MEDS: Chlorhexidine Gluconate 2% 1 Pack (2 Cloths) TOPICAL SCH (06:30)
[2018-03-05] MEDS: Propofol 1000 mg/100 ml Inj 1,000 MG/100 ML BOTTLE IV.CONT PRN ×2 (06:31→22:20)
[2018-03-05 06:34] LABS: Hematocrit 34.9 % (35.0-46.0); Hemoglobin 11.8 gm/dL (11.6-15.3); Mean Corpuscular HGB Conc 33.8 % (32.0-36.0); Mean Corpuscular Hemoglobin 33.3 pg (27.0-34.0); Mean Corpuscular Volume 98.5 fL (80.0-100.0); Mean Platelet Volume 11.8 fL (7.0-11.0); Platelet Count 107 th/mm3 (150-450); Red Blood Count 3.54 mil/mm3 (4.00-5.30); Red Cell Distribution Width 15.8 % (11.6-17.2); White Blood Count 9.8 th/mm3 (4.0-11.0)
[2018-03-05 07:28] LABS: Alanine Aminotransferase 64 U/L (10-53); Albumin 3.2 g/dL (3.4-5.0); Alkaline Phosphatase 54 U/L (45-117); Anion Gap 8 meq/L (5-15); Aspartate Aminotransferase 61 U/L (15-37); Blood Urea Nitrogen 7 mg/dL (7-18); Calcium 7.6 mg/dL (8.5-10.1); Carbon Dioxide 17.4 meq/L (21.0-32.0); Chloride 116 meq/L (98-107); Glomerular Filtration Rate 63 mL/min (>89); Glucose,Random 92 mg/dL (74-106); Magnesium 2.2 mg/dL (1.5-2.5); Potassium 4.3 meq/L (3.5-5.1); Sodium 141 meq/L (136-145); Total Protein 6.9 g/dL (6.4-8.2)
[2018-03-05] MEDS: niCARdipine Inj 25 MG in Sodium Chlor 0.9% Inj 240 ML IV.CONT PRN ×2 (07:30→18:52)
[2018-03-05] MEDS: Senna/Docusate Sodium 8.6/50 MG Tablet PO SCH ×2 (08:54→20:13)
[2018-03-05] MEDS: Famotidine PF Inj 20 MG/2 ML Vial IV.PUSH SCH ×2 (08:54→20:13)
[2018-03-05] MEDS: Carvedilol 6.25 MG Tablet PO SCH ×2 (09:50→21:40)
--- NOTE | 2018-03-05 10:19 | P.PNCC ---
Subjective Subjective Remarks/Hospital Course: Patient is a 57-year-old -[place] female who presented to the emergency department today with right upper and lower extremity weakness and slurred speech. Emergency department had difficulty getting detailed history due to impaired speech and acute onset of symptoms. She was unable to tell them when the symptoms started. 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 Dr. Samuel was consulted, he recommended targeting systolic blood pressure 120-130. Patient came in with systolic blood pressure varying from 170-180. She was started on Cardene infusion and critical care medicine was consulted. Patient was almost flaccid on the right side. While in the emergency department patient vomited twice and there was increasing aphasia. Patient was intubated by ER physician for airway protection I evaluated the patient in the emergency department. Currently she is sedated with propofol on the ventilator. Systolic blood pressure 140-150. I recommended increasing Cardene and increasing propofol. I discussed with Dr. Samuel again. We will rescan the patient with a CT brain prior to ICU transfer to rule out increasing hemorrhage or in any obstruction to the fourth ventricle SUBJ 03/04/18: Patient remains intubated sedated with propofol. On Cardene infusion for blood pressure control. Neurosurgery recommends continued medical management with aggressive blood pressure control target 120-160. Repeat CT head yesterday slight increase in the blood, fourth ventricle remain patent. Will repeat CT scan 03/05/18 03/05/18: CT of the head shows stable pontine hemorrhage. Patient currently is heavily sedated. We will start sedation vacation attempt spontaneous breathing trials Objective Vital Signs / I&O: Vital Signs 03/04/18 12:00 03/04/18 12:20 03/04/18 14:00 Temperature Pulse Rate 60 59 L Respiratory Rate 14 Blood Pressure Pulse Oximetry 100 03/04/18 16:00 03/04/18 16:29 03/04/18 18:00 Temperature 98.5 F Pulse Rate 64 66 Respiratory Rate 14 14 Blood Pressure 113/77 Pulse Oximetry 96 95 03/04/18 19:42 03/04/18 20:00 03/04/18 22:00 Temperature 97.9 F Pulse Rate 62 56 L Respiratory Rate 15 14 Blood Pressure 130/96 H Pulse Oximetry 100 100 03/04/18 23:45 03/05/18 00:00 03/05/18 02:00 Temperature 97.2 F L Pulse Rate 56 L 52 L Respiratory Rate 14 14 Blood Pressure 115/75 Pulse Oximetry 100 100 03/05/18 04:00 03/05/18 04:45 03/05/18 05:21 Temperature 96.4 F L Pulse Rate 54 L Respiratory Rate 14 14 Blood Pressure 135/81 Pulse Oximetry 100 100 100 03/05/18 06:00 03/05/18 08:00 03/05/18 10:00 Temperature 95.5 F L Pulse Rate 56 L 54 L 76 Respiratory Rate 14 Blood Pressure 126/76 Pulse Oximetry 99 03/05/18 10:02 Temperature Pulse Rate Respiratory Rate 22 Blood Pressure Pulse Oximetry 97 Intake & Output 03/04/18 03/05/18 03/05/18 18:59 06:59 18:59 Intake Total 1326 / 1326 1972 / 1972 240 / 240 Output Total 2900 / 2900 460 / 460 Balance -1574 / -1574 1513 / 1513 240 / 240 Weight 71.5 kg 75.9 kg Intake: IV 1100 / 1100 1530 / 1530 240 / 240 Diprivan 1000 mg/100 ml Inj 1, 200 / 200 000 mg In 100 ml @ 5 MCG/KG/MIN 2.449 mls/hr IV.CONT TITRATE PRN Rx#:[id number] NS Inj 1,000 ML @ 70 mls/hr IV. 1000 / 1000 1000 / 1000 CONT .[id number] [facility] Rx#:[id number] Cardene Inj 25 MG In NS Inj 240 240 / 240 240 / 240 ML @ 5 MG/HR 50 mls/hr IV.CONT TITRATE PRN Rx#:[id number] KCl 40 mEq Premix Inj 40 meq In 100 / 100 90 / 90 100 ml @ 25 mls/hr IV.SIG Q2H PRN Rx#:[id number] Oral 120 / 120 Tube Feeding 106 / 106 343 / 343 Tube Irrigant 100 / 100 Output: Urine Amount (Catheter) 2900 / 2900 460 / 460 Indwelling Urethral Catheter 2900 / 2900 460 / 460 Other: # Bowel Movements 0 0 Result Diagrams: 03/05/18 06:23 03/05/18 06:23 Objective Remarks: GEN: 57-year-old -[place] female who is intubated sedated with propofol HEENT: Atraumatic normocephalic. Pupils are 3 mm slightly reactive. Orotracheally intubated NECK: Supple. No JVD LUNGS: Air entry equal bilaterally no wheezes or crackles. HEART: S1 and S2 normal, no murmur. Blood pressure adequately controlled ABDOMEN: Soft. Nontender no organomegaly EXTREMITIES: No pedal edema. NEUROLOGIC: Intubated sedated but opens eyes to painful stimuli intermittently follows commands with left upper extremity moves left lower extremity spontaneously. Flaccid on right upper and lower extremity very slight withdrawal to pain on right lower. 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 Start sedation vacation -CT head today shows stable pontine hemorrhage -Target systolic blood pressure less than 120-150 -Target sodium 145-150 -CTA of the head and neck essentially negative RESP: Acute respiratory failure -PRVC/AC. Ventilator bundle -DuoNeb every 6 hours scheduled and as needed -Start weaning trials today CV: Hypertensive emergency -Cardene infusion to keep systolic blood pressure less than 120-150 -Use as needed labetalol for additional control. Scheduled Coreg 6.25 mg twice daily -Normal saline IV fluids 84 mL/h, 2d echo GI: -IV famotidine -Tube feeds with Jevity -Bowel regimen : Elevated CPK Acute kidney insufficiency -Monitor renal function closely. Grewal catheter for accurate intake output -Continue hydration ID: -Monitor closely for infection HEME: -Monitor CBC, coags ENDO: Hypokalemia Hyperglycemia -Electrolyte replacement per protocol -Sliding scale insulin, f/u hemoglobin A1c PROPH: -Bilateral lower extremity SCDs/ROBY. IV famotidine for GI prophylaxis -Chemical DVT prophylaxis is contraindicated LINES: -Utilize peripheral IVs, central line if needed CC time 35 min At this time patient is critical with hypertensive emergency and potentially life-threatening acute pontine hemorrhage. Neurosurgery following.
--- NOTE | 2018-03-05 18:40 | P.PNNS ---
Subjective Interval history: Pt opens eyes to voice. She is intubated. She nods her head to questions. She is on Cardene drip. <Teo Vera - Last Filed: 03/05/18 18:34> Physical Exam Vital signs: Vital Signs 03/04/18 19:42 03/04/18 20:00 03/04/18 22:00 Temperature 97.9 F Pulse Rate 62 56 L Respiratory Rate 15 14 Blood Pressure 130/96 H Pulse Oximetry 100 100 03/04/18 23:45 03/05/18 00:00 03/05/18 02:00 Temperature 97.2 F L Pulse Rate 56 L 52 L Respiratory Rate 14 14 Blood Pressure 115/75 Pulse Oximetry 100 100 03/05/18 04:00 03/05/18 04:45 03/05/18 05:21 Temperature 96.4 F L Pulse Rate 54 L Respiratory Rate 14 14 Blood Pressure 135/81 Pulse Oximetry 100 100 100 03/05/18 06:00 03/05/18 08:00 03/05/18 10:00 Temperature 95.5 F L Pulse Rate 56 L 54 L 76 Respiratory Rate 14 Blood Pressure 126/76 Pulse Oximetry 99 03/05/18 10:02 03/05/18 12:00 03/05/18 14:00 Temperature 99.0 F Pulse Rate 61 60 Respiratory Rate 22 14 Blood Pressure 116/68 Pulse Oximetry 97 100 03/05/18 16:00 03/05/18 17:49 03/05/18 18:00 Temperature 99.5 F Pulse Rate 56 L 63 Respiratory Rate 14 16 Blood Pressure 133/79 Pulse Oximetry 100 100 Intake & Output 03/04/18 03/05/18 03/05/18 18:59 06:59 18:59 Intake Total 1326 / 1326 1972 / 1972 1576 / 1576 Output Total 2900 / 2900 460 / 460 1000 / 1000 Balance -1574 / -1574 1513 / 1513 576 / 576 Weight 71.5 kg 75.9 kg Intake: IV 1100 / 1100 1530 / 1530 1340 / 1340 Diprivan 1000 mg/100 ml Inj 1, 200 / 200 000 mg In 100 ml @ 5 MCG/KG/MIN 2.449 mls/hr IV.CONT TITRATE PRN Rx#:[id number] NS Inj 1,000 ML @ 70 mls/hr IV. 1000 / 1000 1000 / 1000 1000 / 1000 CONT .[id number] [facility] Rx#:[id number] Cardene Inj 25 MG In NS Inj 240 240 / 240 240 / 240 ML @ 5 MG/HR 50 mls/hr IV.CONT TITRATE PRN Rx#:[id number] KCl 40 mEq Premix Inj 40 meq In 100 / 100 90 / 90 100 / 100 100 ml @ 25 mls/hr IV.SIG Q2H PRN Rx#:[id number] Oral 120 / 120 Tube Feeding 106 / 106 343 / 343 236 / 236 Tube Irrigant 100 / 100 Output: Urine Amount (Catheter) 2900 / 2900 460 / 460 1000 / 1000 Indwelling Urethral Catheter 2900 / 2900 460 / 460 1000 / 1000 Other: # Bowel Movements 0 0 0 - Constitutional Comments: Pt opens eyes to voice slightly. She nods her head to some questions. - Routine HEENT Exam Head: Present: normocephalic, atraumatic Eye: Present: PERRL (Pupils 3mm bilaterally reactive bilaterally.). Absent: conjunctival icterus ENT: Absent: oropharynx clear (ET intubated.) - Routine Respiratory Exam Present: patient mechanically ventilated (Pressure control. Rate 14. Peep 5. FiO2 35%.) - Routine Cardiovascular Exam Present: RRR, S1, S2, murmur (Pt on Cardene drip.) - Routine Abdominal Exam Present: soft, normoactive bowel sounds. Absent: distended, firm - Routine Skin Exam Absent: cyanosis, erythema - Routine Neurological Exam Present: motor deficit (Right side weaker than left but moves all 4 extremities. ), altered mental status, moving all extremities (Right side weaker than left.) . Absent: alert (Opens eyes slightly to voice.) - Detailed Neurological Exam: Coma Scale Eye Opening: To sound Verbal Response: None Motor Response: Obey commands Ksenia Coma Scale Total: 10 - Routine Psychiatric Exam Present: unable to assess - Urinary Catheter Management Indwelling Urethral Catheter Cath placed during this visit: yes Reason for continuing: Hourly intake/output Insertion date: 03/03/18 Insertion time: 09:02 2000 Cath placed during this visit: no Reason for continuing: Hourly intake/output <Teo Vera - Last Filed: 03/05/18 18:34> Vital signs: Vital Signs 03/05/18 10:00 03/05/18 10:02 03/05/18 12:00 Temperature 99.0 F Pulse Rate 76 61 Respiratory Rate 22 14 Blood Pressure 116/68 Pulse Oximetry 97 100 03/05/18 14:00 03/05/18 16:00 03/05/18 17:49 Temperature 99.5 F Pulse Rate 60 56 L Respiratory Rate 14 16 Blood Pressure 133/79 Pulse Oximetry 100 100 03/05/18 18:00 03/05/18 20:00 03/05/18 20:55 Temperature 99.0 F Pulse Rate 63 58 L Respiratory Rate 16 16 Blood Pressure 132/85 Pulse Oximetry 100 96 03/05/18 21:01 03/05/18 22:00 03/06/18 00:00 Temperature 97.9 F Pulse Rate 76 50 L 70 Respiratory Rate 16 18 Blood Pressure 147/92 H Pulse Oximetry 100 03/06/18 00:32 03/06/18 02:00 03/06/18 03:40 Temperature Pulse Rate 59 L 58 L Respiratory Rate 16 16 Blood Pressure Pulse Oximetry 100 03/06/18 04:00 03/06/18 04:15 03/06/18 06:00 Temperature 97.5 F L Pulse Rate 70 58 L Respiratory Rate 16 18 Blood Pressure 148/80 H Pulse Oximetry 100 100 03/06/18 08:00 Temperature 98.4 F Pulse Rate 68 Respiratory Rate 16 Blood Pressure 136/87 Pulse Oximetry 98 Intake & Output 03/05/18 03/06/18 03/06/18 18:59 06:59 18:59 Intake Total 1816 / 1816 1878 / 1878 Output Total 1000 / 1000 1925 / 1925 Balance 816 / 816 -47 / -47 Weight 76 kg Intake: IV 1580 / 1580 1305 / 1305 Diprivan 1000 mg/100 ml Inj 1, 100 / 100 000 mg In 100 ml @ 5 MCG/KG/MIN 2.449 mls/hr IV.CONT TITRATE PRN Rx#:[id number] NS Inj 1,000 ML @ 70 mls/hr IV. 1000 / 1000 975 / 975 CONT .[id number] [facility] Rx#:[id number] Cardene Inj 25 MG In NS Inj 240 480 / 480 230 / 230 ML @ 5 MG/HR 50 mls/hr IV.CONT TITRATE PRN Rx#:[id number] KCl 40 mEq Premix Inj 40 meq In 100 / 100 100 ml @ 25 mls/hr IV.SIG Q2H PRN Rx#:[id number] Tube Feeding 236 / 236 573 / 573 Output: Urine Amount (Catheter) 1000 / 1000 1924 / 1925 Indwelling Urethral Catheter 1000 / 1000 1924 / 192 Other: # Bowel Movements 0 - Urinary Catheter Management Indwelling Urethral Catheter Cath placed during this visit: no 2000 Cath placed during this visit: no <Gary Souza - Last Filed: 03/06/18 09:34> Assessment and Plan - Assessment (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 Plan: Continue to monitor and treat blood pressure. Continue with neuro checks Continue with critical care. D/W family <Teo Vera - Last Filed: 03/05/18 18:34> - Attending Attestation The exam, history, and the medical decision-making described in the above note were completed with the assistance of the mid-level provider. I reviewed and agree with the findings presented. I attest that I had a [id number] encounter with the patient on the same day, and personally performed and documented my assessment and findings in the medical record. We will ventilator status as tolerated. Discussed with sagger soak Dr. Mcginnis. <Gary Souza - Last Filed: 03/06/18 09:34>
--- NOTE | 2018-03-05 19:49 | ECHRPT ---
Indication: CVA/TIA CONCLUSIONS Normal left ventricular size. Mild concentric left ventricular hypertrophy. The left ventricular systolic function is normal with an estimated ejection fraction in the range of 55-60%. Trace mitral valve regurgitation. Aortic valve sclerosis is present. The estimated pulmonary arterial pressure is 32 mmHg. Trivial pulmonary valve regurgitation. BP: / HR: Rhythm: MEASUREMENTS (Male / Female) Normal Values Technical Quality: 2D ECHO LV Diastolic Diameter PLAX 3.9 cm 4.2 - 5.9 / 3.9 - 5.3 cm LV Systolic Diameter PLAX 2.8 cm IVS Diastolic Thickness 1.4 cm 0.6 - 1.0 / 0.6 - 0.9 cm LVPW Diastolic Thickness 1.1 cm 0.6 - 1.0 / 0.6 - 0.9 cm LV Relative Wall Thickness 0.6 RV Internal Dim ED PLAX 2.2 cm LA Systolic Diameter LX 3.4 cm 3.0 - 4.0 / 2.7 - 3.8 cm M-MODE Aortic Root Diameter MM 2.9 cm AV Cusp Separation MM 1.8 cm DOPPLER Mitral E Point Velocity 44.9 cm/s Mitral A Point Velocity 61.2 cm/s Mitral E to A Ratio 0.7 TR Peak Velocity 232.0 cm/s TR Peak Gradient 21.5 mmHg Right Atrial Pressure 10.0 mmHg Pulmonary Artery Systolic Pressu 31.5 mmHg Right Ventricular Systolic Press 31.5 mmHg FINDINGS LEFT VENTRICLE Normal left ventricular size. Mild concentric left ventricular hypertrophy. The left ventricular systolic function is normal with an estimated ejection fraction in the range of 55-60%. RIGHT VENTRICLE Normal right ventricular size and systolic function. LEFT ATRIUM The left atrial size is normal. RIGHT ATRIUM The right atrial size is normal. ATRIAL SEPTUM Normal atrial septal thickness without atrial level shunting by limited color doppler interrogation. AORTA The aortic root and proximal ascending aorta are normal in size on limited imaging. MITRAL VALVE Trace mitral valve regurgitation. AORTIC VALVE Aortic valve sclerosis is present. TRICUSPID VALVE The estimated pulmonary arterial pressure is 32 mmHg. PULMONARY VALVE Trivial pulmonary valve regurgitation. VESSELS The inferior vena cava is normal in size. PERICARDIUM No pericardial effusion. Bang Kan MD (Electronically Signed) Final Date:05 March 2018 19:48
[2018-03-06] MEDS: Insulin NovoLIN Regular Correctional Sugar Inj SQ SCH ×4 (00:39→18:44)
[2018-03-06] MEDS: niCARdipine Inj 25 MG in Sodium Chlor 0.9% Inj 240 ML IV.CONT PRN (03:34)
[2018-03-06] MEDS: Chlorhexidine Gluconate 2% 1 Pack (2 Cloths) TOPICAL SCH (03:34)
[2018-03-06] MEDS: Sod Chloride 0.9% Inj 1,000 ML IV.CONT SCH ×2 (03:45→18:12)
[2018-03-06] MEDS: Carvedilol 6.25 MG Tablet PO SCH (10:47)
[2018-03-06] MEDS: Senna/Docusate Sodium 8.6/50 MG Tablet PO SCH ×2 (10:48→20:06)
[2018-03-06] MEDS: Famotidine PF Inj 20 MG/2 ML Vial IV.PUSH SCH ×2 (10:48→20:05)
[2018-03-06] MEDS: Propofol 1000 mg/100 ml Inj 1,000 MG/100 ML BOTTLE IV.CONT PRN (10:49)
--- NOTE | 2018-03-06 14:27 | P.PNCC ---
Subjective Subjective Remarks/Hospital Course: Patient is a 57-year-old -[place] female who presented to the emergency department today with right upper and lower extremity weakness and slurred speech. Emergency department had difficulty getting detailed history due to impaired speech and acute onset of symptoms. She was unable to tell them when the symptoms started. 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 Dr. Samuel was consulted, he recommended targeting systolic blood pressure 120-130. Patient came in with systolic blood pressure varying from 170-180. She was started on Cardene infusion and critical care medicine was consulted. Patient was almost flaccid on the right side. While in the emergency department patient vomited twice and there was increasing aphasia. Patient was intubated by ER physician for airway protection I evaluated the patient in the emergency department. Currently she is sedated with propofol on the ventilator. Systolic blood pressure 140-150. I recommended increasing Cardene and increasing propofol. I discussed with Dr. Samuel again. We will rescan the patient with a CT brain prior to ICU transfer to rule out increasing hemorrhage or in any obstruction to the fourth ventricle SUBJ 03/04/18: Patient remains intubated sedated with propofol. On Cardene infusion for blood pressure control. Neurosurgery recommends continued medical management with aggressive blood pressure control target 120-160. Repeat CT head yesterday slight increase in the blood, fourth ventricle remain patent. Will repeat CT scan 03/05/18 03/05/18: CT of the head shows stable pontine hemorrhage. Patient currently is heavily sedated. We will start sedation vacation attempt spontaneous breathing trials. 03/06: CT scan without hydrocephalus. Areas of bleed unchanged but large. Brief attempts at spontaneous ventilation has not been successful today. She does continue to open her eyes and track to a voice. Objective Vital Signs / I&O: Vital Signs 03/05/18 16:00 03/05/18 17:49 03/05/18 18:00 Temperature 99.5 F Pulse Rate 56 L 63 Respiratory Rate 14 16 Blood Pressure 133/79 Pulse Oximetry 100 100 03/05/18 20:00 03/05/18 20:55 03/05/18 21:01 Temperature 99.0 F Pulse Rate 58 L 76 Respiratory Rate 16 16 16 Blood Pressure 132/85 Pulse Oximetry 100 96 03/05/18 22:00 03/06/18 00:00 03/06/18 00:32 Temperature 97.9 F Pulse Rate 50 L 70 Respiratory Rate 18 16 Blood Pressure 147/92 H Pulse Oximetry 100 100 03/06/18 02:00 03/06/18 03:40 03/06/18 04:00 Temperature 97.5 F L Pulse Rate 59 L 58 L 70 Respiratory Rate 16 16 Blood Pressure 148/80 H Pulse Oximetry 100 03/06/18 04:15 03/06/18 06:00 03/06/18 08:00 Temperature 98.4 F Pulse Rate 58 L 68 Respiratory Rate 18 16 Blood Pressure 136/87 Pulse Oximetry 100 98 03/06/18 09:33 03/06/18 10:00 03/06/18 12:00 Temperature 98 F Pulse Rate 68 81 Respiratory Rate 17 17 Blood Pressure Pulse Oximetry 98 Intake & Output 03/05/18 03/06/18 03/06/18 18:59 06:59 18:59 Intake Total 1816 / 1816 1878 / 1878 Output Total 1000 / 1000 1924 Balance 816 / 816 -47 / -47 Weight 76 kg Intake: IV 1580 / 1580 1305 / 1305 Diprivan 1000 mg/100 ml Inj 1, 100 / 100 000 mg In 100 ml @ 5 MCG/KG/MIN 2.449 mls/hr IV.CONT TITRATE PRN Rx#:[id number] NS Inj 1,000 ML @ 70 mls/hr IV. 1000 / 1000 975 / 975 CONT .[id number] [facility] Rx#:[id number] Cardene Inj 25 MG In NS Inj 240 480 / 480 230 / 230 ML @ 5 MG/HR 50 mls/hr IV.CONT TITRATE PRN Rx#:[id number] KCl 40 mEq Premix Inj 40 meq In 100 / 100 100 ml @ 25 mls/hr IV.SIG Q2H PRN Rx#:[id number] Tube Feeding 236 / 236 573 / 573 Output: Urine Amount (Catheter) 1000 / 1000 1924 Indwelling Urethral Catheter 1000 / 1000 1924 Other: # Bowel Movements 0 Result Diagrams: 03/05/18 06:23 03/05/18 06:23 Objective Remarks: GEN: 57-year-old -[place]aced[place] female who is intubated sedated with propofol HEENT: Atraumatic normocephalic. Pupils are 3 mm slightly reactive. Orotracheally intubated NECK: Supple. No JVD LUNGS: Air entry equal bilaterally no wheezes or crackles. HEART: S1 and S2 normal, no murmur. Blood pressure adequately controlled ABDOMEN: Soft. Nontender no organomegaly EXTREMITIES: No pedal edema. NEUROLOGIC: Intubated sedated but opens eyes to painful stimuli intermittently follows commands with left upper extremity moves left lower extremity spontaneously. Flaccid on right upper and lower extremity very slight withdrawal to pain on right lower. 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 Start sedation vacation -CT head today shows stable pontine hemorrhage -Target systolic blood pressure less than 120-150 -Target sodium 145-150 -CTA of the head and neck essentially negative -Repeat head CT March 06 without change in the pontine bleed size, no hydrocephalus. RESP: Acute respiratory failure -PRVC/AC. Ventilator bundle -DuoNeb every 6 hours scheduled and as needed -Start weaning trials today CV: Hypertensive emergency -Cardene infusion to keep systolic blood pressure less than 120-150 -Use as needed labetalol for additional control. Scheduled Coreg 6.25 mg twice daily -Normal saline IV fluids 84 mL/h, 2d echo GI: -IV famotidine -Tube feeds with Jevity -Bowel regimen : Elevated CPK Acute kidney insufficiency -Monitor renal function closely. Grewal catheter for accurate intake output -Continue hydration ID: -Monitor closely for infection HEME: -Monitor CBC, coags ENDO: Hypokalemia Hyperglycemia -Electrolyte replacement per protocol -Sliding scale insulin, f/u hemoglobin A1c PROPH: -Bilateral lower extremity SCDs/ROBY. IV famotidine for GI prophylaxis -Chemical DVT prophylaxis is contraindicated LINES: -Utilize peripheral IVs, central line if needed Overall impression: At this time patient is critically ill with hypertensive and potentially life-threatening acute pontine hemorrhage. She remains ventilator dependent and does not demonstrate a reliable respiratory effort. Critical care 38 minutes
[2018-03-06] MEDS ORDERED: hydrALAZINE 50 MG Tablet PO PRN (15:56)
--- NOTE | 2018-03-06 16:08 | P.PNNS ---
Subjective Interval history: No acute events overnight. Remains mechanically ventilated. Physical Exam Vital signs: Vital Signs 03/05/18 16:00 03/05/18 17:49 03/05/18 18:00 Temperature 99.5 F Pulse Rate 56 L 63 Respiratory Rate 14 16 Blood Pressure 133/79 Pulse Oximetry 100 100 03/05/18 20:00 03/05/18 20:55 03/05/18 21:01 Temperature 99.0 F Pulse Rate 58 L 76 Respiratory Rate 16 16 16 Blood Pressure 132/85 Pulse Oximetry 100 96 03/05/18 22:00 03/06/18 00:00 03/06/18 00:32 Temperature 97.9 F Pulse Rate 50 L 70 Respiratory Rate 18 16 Blood Pressure 147/92 H Pulse Oximetry 100 100 03/06/18 02:00 03/06/18 03:40 03/06/18 04:00 Temperature 97.5 F L Pulse Rate 59 L 58 L 70 Respiratory Rate 16 16 Blood Pressure 148/80 H Pulse Oximetry 100 03/06/18 04:15 03/06/18 06:00 03/06/18 08:00 Temperature 98.4 F Pulse Rate 58 L 68 Respiratory Rate 18 16 Blood Pressure 136/87 Pulse Oximetry 100 98 03/06/18 09:33 03/06/18 10:00 03/06/18 12:00 Temperature 98 F Pulse Rate 68 81 Respiratory Rate 17 17 Blood Pressure Pulse Oximetry 98 03/06/18 14:00 03/06/18 14:20 Temperature Pulse Rate 64 Respiratory Rate Blood Pressure Pulse Oximetry 97 Intake & Output 03/05/18 03/06/18 03/06/18 18:59 06:59 18:59 Intake Total 1816 / 1816 1878 / 1878 Output Total 1000 / 1000 1925 / 1925 Balance 816 / 816 -47 / -47 Weight 76 kg Intake: IV 1580 / 1580 1305 / 1305 Diprivan 1000 mg/100 ml Inj 1, 100 / 100 000 mg In 100 ml @ 5 MCG/KG/MIN 2.449 mls/hr IV.CONT TITRATE PRN Rx#:[id number] NS Inj 1,000 ML @ 70 mls/hr IV. 1000 / 1000 975 / 975 CONT .[id number] [facility] Rx#:[id number] Cardene Inj 25 MG In NS Inj 240 480 / 480 230 / 230 ML @ 5 MG/HR 50 mls/hr IV.CONT TITRATE PRN Rx#:[id number] KCl 40 mEq Premix Inj 40 meq In 100 / 100 100 ml @ 25 mls/hr IV.SIG Q2H PRN Rx#:[id number] Tube Feeding 236 / 236 573 / 573 Output: Urine Amount (Catheter) 1000 / 1000 192 / 1925 Indwelling Urethral Catheter 1000 / 1000 1924 / 192 Other: # Bowel Movements 0 Narrative: Opens eyes to voice Intubated Localizes left upper extremity anti-gravity Dense right upper extremity paresis Wiggles toes bilateral lower extremities, left more briskly than right - Urinary Catheter Management Indwelling Urethral Catheter Cath placed during this visit: yes Reason for continuing: Hourly intake/output Insertion date: 03/03/18 Insertion time: 09:02 1999 Cath placed during this visit: no Reason for continuing: Hourly intake/output Assessment and Plan - Plan Impression: Ms. Sanchez is a 57 y/o female who had a pontine intracerebral hemorrhage. Repeat CT head on 03/05 was stable as compared to presenting scan. No evidence of hydrocephalus. Patent 4th ventricular system. Plan: Continue to monitor and treat blood pressure with goal SBP of 100-140. Continue with neuro checks. I called and updated her mother, Daniel, on her condition on 03/06/18.
[2018-03-06] MEDS: Carvedilol 12.5 MG Tablet PO SCH (20:06)
[2018-03-06] MEDS: Acetaminophen 325 MG Tablet PO PRN (20:09)
[2018-03-07] MEDS: Sod Chloride 0.9% Inj 1,000 ML IV.CONT SCH ×3 (00:27→11:02)
[2018-03-07] MEDS: Insulin NovoLIN Regular Correctional Sugar Inj SQ SCH ×5 (00:28→23:58)
[2018-03-07] MEDS: Dextrose 50% in Water 50 ML Vial IV.PUSH PRN (00:31)
[2018-03-07] MEDS: Chlorhexidine Gluconate 2% 1 Pack (2 Cloths) TOPICAL SCH (06:38)
[2018-03-07] MEDS: Propofol 1000 mg/100 ml Inj 1,000 MG/100 ML BOTTLE IV.CONT PRN ×3 (08:03→23:33)
[2018-03-07] MEDS: Famotidine PF Inj 20 MG/2 ML Vial IV.PUSH SCH ×2 (08:05→20:30)
[2018-03-07] MEDS: Carvedilol 12.5 MG Tablet PO SCH (08:06)
[2018-03-07] MEDS: Senna/Docusate Sodium 8.6/50 MG Tablet PO SCH ×2 (08:06→20:31)
--- NOTE | 2018-03-07 09:43 | P.PNNS ---
Subjective Interval history: No acute events overnight. Physical Exam Vital signs: Vital Signs 03/06/18 10:00 03/06/18 12:00 03/06/18 14:00 Temperature 98 F Pulse Rate 68 81 64 Respiratory Rate 17 Blood Pressure Pulse Oximetry 03/06/18 14:20 03/06/18 16:00 03/06/18 18:00 Temperature 99.3 F Pulse Rate 67 58 L Respiratory Rate Blood Pressure 134/78 Pulse Oximetry 97 58 L 03/06/18 20:00 03/06/18 20:34 03/06/18 22:00 Temperature 99 F Pulse Rate 78 52 L Respiratory Rate 17 17 Blood Pressure 159/92 H Pulse Oximetry 100 97 03/06/18 23:38 03/07/18 00:00 03/07/18 02:00 Temperature 99.3 F Pulse Rate 54 L 70 Respiratory Rate 16 16 Blood Pressure 119/74 Pulse Oximetry 100 96 03/07/18 04:00 03/07/18 04:56 03/07/18 06:00 Temperature 99 F Pulse Rate 54 L 52 L Respiratory Rate 16 17 Blood Pressure 146/90 H Pulse Oximetry 98 96 03/07/18 08:00 Temperature Pulse Rate Respiratory Rate 16 Blood Pressure Pulse Oximetry 91 L Intake & Output 03/06/18 03/07/18 03/07/18 18:59 06:59 18:59 Intake Total 2163 / 2163 1100 / 1100 Output Total 2200 / 2200 300 / 300 Balance -37 / -37 -300 / -300 1100 / 1100 Intake: IV 1500 / 1500 1100 / 1100 Diprivan 1000 mg/100 ml Inj 1, 100 / 100 000 mg In 100 ml @ 5 MCG/KG/MIN 2.449 mls/hr IV.CONT TITRATE PRN Rx#:[id number] NS Inj 1,000 ML @ 70 mls/hr IV. 1000 / 1000 1000 / 1000 CONT .[id number] [facility] Rx#:[id number] Cardene Inj 25 MG In NS Inj 240 500 / 500 ML @ 5 MG/HR 50 mls/hr IV.CONT TITRATE PRN Rx#:[id number] Tube Feeding 603 / 603 Water Bolus Amount 60 / 60 Output: Urine Amount (Catheter) 2200 / 2200 300 / 300 Indwelling Urethral Catheter 2200 / 2200 300 / 300 Other: # Bowel Movements 0 Narrative: Sedated this AM for agitation (on 30 of propofol) Does not open eyes Intubated Localizes left upper extremity Dense right upper extremity paresis Withdraws left lower extremity greater than right lower extremity - Urinary Catheter Management Indwelling Urethral Catheter Cath placed during this visit: yes Reason for continuing: Hourly intake/output Insertion date: 03/03/18 Insertion time: 09:02 1999 Cath placed during this visit: no Reason for continuing: Hourly intake/output Assessment and Plan - Assessment (1) 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 Sanchez is a 57 y/o female who had a pontine intracerebral hemorrhage. Repeat CT head on 03/05 was stable as compared to presenting scan. No evidence of hydrocephalus. Patent 4th ventricular system. Plan: Continue to monitor and treat blood pressure with goal SBP of 100-140. Continue with neuro checks. I called and updated her mother, Daniel, on her condition on 03/06/18. She states that she will attempt to fly here in the next few days (lives in [place]).
[2018-03-07] MEDS: niCARdipine Inj 25 MG in Sodium Chlor 0.9% Inj 240 ML IV.CONT PRN ×2 (10:23→19:10)
--- NOTE | 2018-03-07 11:44 | P.PNCC ---
Subjective Subjective Remarks/Hospital Course: Patient is a 57-year-old -[place] female who presented to the emergency department today with right upper and lower extremity weakness and slurred speech. Emergency department had difficulty getting detailed history due to impaired speech and acute onset of symptoms. She was unable to tell them when the symptoms started. 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 Dr. Samuel was consulted, he recommended targeting systolic blood pressure 120-130. Patient came in with systolic blood pressure varying from 170-180. She was started on Cardene infusion and critical care medicine was consulted. Patient was almost flaccid on the right side. While in the emergency department patient vomited twice and there was increasing aphasia. Patient was intubated by ER physician for airway protection I evaluated the patient in the emergency department. Currently she is sedated with propofol on the ventilator. Systolic blood pressure 140-150. I recommended increasing Cardene and increasing propofol. I discussed with Dr. Samuel again. We will rescan the patient with a CT brain prior to ICU transfer to rule out increasing hemorrhage or in any obstruction to the fourth ventricle SUBJ 03/04/18: Patient remains intubated sedated with propofol. On Cardene infusion for blood pressure control. Neurosurgery recommends continued medical management with aggressive blood pressure control target 120-160. Repeat CT head yesterday slight increase in the blood, fourth ventricle remain patent. Will repeat CT scan 03/05/18 03/05/18: CT of the head shows stable pontine hemorrhage. Patient currently is heavily sedated. We will start sedation vacation attempt spontaneous breathing trials. 03/06: CT scan without hydrocephalus. Areas of bleed unchanged but large. Brief attempts at spontaneous ventilation has not been successful today. She does continue to open her eyes and track to a voice. 03/07: She gets pretty agitated when sedation is low. Performs well on spontaneous breathing trials. The bleed appears stable at this time without change. We will attempt extubation and find out if she can protect her airway. Objective Vital Signs / I&O: Vital Signs 03/06/18 12:00 03/06/18 14:00 03/06/18 14:20 Temperature 98 F Pulse Rate 81 64 Respiratory Rate 17 Blood Pressure Pulse Oximetry 97 03/06/18 16:00 03/06/18 18:00 03/06/18 20:00 Temperature 99.3 F 99 F Pulse Rate 67 58 L 78 Respiratory Rate 17 Blood Pressure 134/78 159/92 H Pulse Oximetry 58 L 100 03/06/18 20:34 03/06/18 22:00 03/06/18 23:38 Temperature Pulse Rate 52 L Respiratory Rate 17 16 Blood Pressure Pulse Oximetry 97 100 03/07/18 00:00 03/07/18 02:00 03/07/18 04:00 Temperature 99.3 F 99 F Pulse Rate 54 L 70 54 L Respiratory Rate 16 16 Blood Pressure 119/74 146/90 H Pulse Oximetry 96 98 03/07/18 04:56 03/07/18 06:00 03/07/18 08:00 Temperature Pulse Rate 52 L 68 Respiratory Rate 17 16 Blood Pressure 137/86 Pulse Oximetry 96 91 L 03/07/18 10:50 Temperature Pulse Rate Respiratory Rate 12 Blood Pressure Pulse Oximetry 94 L Intake & Output 03/06/18 03/07/18 03/07/18 18:59 06:59 18:59 Intake Total 2163 / 2163 1100 / 1100 Output Total 2200 / 2200 300 / 300 Balance -37 / -37 -300 / -300 1100 / 1100 Intake: IV 1500 / 1500 1100 / 1100 Diprivan 1000 mg/100 ml Inj 1, 100 / 100 000 mg In 100 ml @ 5 MCG/KG/MIN 2.449 mls/hr IV.CONT TITRATE PRN Rx#:[id number] NS Inj 1,000 ML @ 70 mls/hr IV. 1000 / 1000 1000 / 1000 CONT .[id number] [facility] Rx#:[id number] Cardene Inj 25 MG In NS Inj 240 500 / 500 ML @ 5 MG/HR 50 mls/hr IV.CONT TITRATE PRN Rx#:[id number] Tube Feeding 603 / 603 Water Bolus Amount 60 / 60 Output: Urine Amount (Catheter) 2200 / 2200 300 / 300 Indwelling Urethral Catheter 2200 / 2200 300 / 300 Other: # Bowel Movements 0 Result Diagrams: 03/05/18 06:23 03/05/18 06:23 Objective Remarks: GEN: 57-year-old -[place] female who is intubated sedated with propofol HEENT: Atraumatic normocephalic. Pupils are 2 mm reactive. Orotracheally intubated NECK: Supple. No JVD LUNGS: Air entry equal bilaterally no wheezes or crackles. HEART: S1 and S2 normal, no murmur. Blood pressure adequately controlled, Cardene restarted. ABDOMEN: Soft. Nontender no organomegaly EXTREMITIES: No pedal edema. Warm and well-perfused. NEUROLOGIC: Intubated sedated but opens eyes to noxious stimuli, intermittently follows commands with left upper extremity moves left lower extremity spontaneously. 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 Start sedation vacation -CT head today shows stable pontine hemorrhage -Target systolic blood pressure less than 120-150 -Target sodium 145-150 -CTA of the head and neck essentially negative -Repeat head CT March 06 without change in the pontine bleed size, no hydrocephalus. RESP: Acute respiratory failure -PRVC/AC. Ventilator bundle -DuoNeb every 6 hours scheduled and as needed -Start weaning trials today -We will attempt to extubate and watch airway closely. CV: Hypertensive emergency -Cardene infusion to keep systolic blood pressure less than 120-150 -Use as needed labetalol for additional control. Scheduled Coreg 6.25 mg twice daily -Normal saline IV fluids 84 mL/h, 2d echo GI: -IV famotidine -Tube feeds with Jevity -Bowel regimen : Elevated CPK Acute kidney insufficiency -Monitor renal function closely. Grewal catheter for accurate intake output -Continue hydration ID: -Monitor closely for infection HEME: -Monitor CBC, coags ENDO: Hypokalemia Hyperglycemia -Electrolyte replacement per protocol -Sliding scale insulin, f/u hemoglobin A1c PROPH: -Bilateral lower extremity SCDs/ROBY. IV famotidine for GI prophylaxis -Chemical DVT prophylaxis is contraindicated LINES: -Utilize peripheral IVs, central line if needed Overall impression: Patient is critically ill with potentially life-threatening acute pontine hemorrhage. Blood pressure control has been good with intravenous Cardene. Oral agents now added to stabilize pressure at these levels. She remains ventilator dependent and does demonstrate a reliable respiratory effort. We will attempt extubation and watch her airway closely.
[2018-03-07] MEDS ORDERED: hydrALAZINE 50 MG Tablet PO SCH (13:00)
[2018-03-07] MEDS: Carvedilol 6.25 MG Tablet PO SCH (20:31)
[2018-03-07] MEDS: hydrALAZINE 50 MG Tablet PO SCH (23:14)
[2018-03-08] MEDS: Sod Chloride 0.9% Inj 1,000 ML IV.CONT SCH ×3 (01:45→17:44)
[2018-03-08] MEDS: niCARdipine Inj 25 MG in Sodium Chlor 0.9% Inj 240 ML IV.CONT PRN ×3 (01:48→17:44)
[2018-03-08] MEDS: Chlorhexidine Gluconate 2% 1 Pack (2 Cloths) TOPICAL SCH (03:26)
[2018-03-08] MEDS: Hyoscyamine Inj 0.5 MG/ML Ampul IV.PUSH PRN ×2 (03:49→21:03)
[2018-03-08] MEDS: Insulin NovoLIN Regular Correctional Sugar Inj SQ SCH ×2 (05:41→11:28)
[2018-03-08] MEDS: hydrALAZINE 50 MG Tablet PO SCH ×3 (06:01→23:09)
[2018-03-08] MEDS: Senna/Docusate Sodium 8.6/50 MG Tablet PO SCH ×2 (08:14→21:03)
[2018-03-08] MEDS: Carvedilol 6.25 MG Tablet PO SCH ×2 (08:14→21:03)
[2018-03-08] MEDS: Famotidine PF Inj 20 MG/2 ML Vial IV.PUSH SCH ×2 (08:14→21:03)
[2018-03-08] MEDS: Propofol 1000 mg/100 ml Inj 1,000 MG/100 ML BOTTLE IV.CONT PRN ×4 (08:15→20:42)
--- NOTE | 2018-03-08 09:14 | P.PNCC ---
Subjective Subjective Remarks/Hospital Course: Patient is a 57-year-old -[place] female who presented to the emergency department today with right upper and lower extremity weakness and slurred speech. Emergency department had difficulty getting detailed history due to impaired speech and acute onset of symptoms. She was unable to tell them when the symptoms started. 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 Dr. Samuel was consulted, he recommended targeting systolic blood pressure 120-130. Patient came in with systolic blood pressure varying from 170-180. She was started on Cardene infusion and critical care medicine was consulted. Patient was almost flaccid on the right side. While in the emergency department patient vomited twice and there was increasing aphasia. Patient was intubated by ER physician for airway protection I evaluated the patient in the emergency department. Currently she is sedated with propofol on the ventilator. Systolic blood pressure 140-150. I recommended increasing Cardene and increasing propofol. I discussed with Dr. Samuel again. We will rescan the patient with a CT brain prior to ICU transfer to rule out increasing hemorrhage or in any obstruction to the fourth ventricle SUBJ 03/04/18: Patient remains intubated sedated with propofol. On Cardene infusion for blood pressure control. Neurosurgery recommends continued medical management with aggressive blood pressure control target 120-160. Repeat CT head yesterday slight increase in the blood, fourth ventricle remain patent. Will repeat CT scan 03/05/18 03/05/18: CT of the head shows stable pontine hemorrhage. Patient currently is heavily sedated. We will start sedation vacation attempt spontaneous breathing trials. 03/06: CT scan without hydrocephalus. Areas of bleed unchanged but large. Brief attempts at spontaneous ventilation has not been successful today. She does continue to open her eyes and track to a voice. 03/07: She gets pretty agitated when sedation is low. Performs well on spontaneous breathing trials. The bleed appears stable at this time without change. We will attempt extubation and find out if she can protect her airway. 03/08: We will continue to perform weaning trials. Will attempt extubation and observe airway closely. Yesterday she was much too agitated to attempt extubation but perhaps today will have more success. Change out Grewal to a wick device. Increasing ventricular ectopy will check electrolytes and replace as needed. No evidence of cardiac injury. Objective Vital Signs / I&O: Vital Signs 03/07/18 10:50 03/07/18 12:00 03/07/18 13:46 Temperature 97.8 F Pulse Rate 62 Respiratory Rate 12 16 16 Blood Pressure 137/78 Pulse Oximetry 94 L 98 03/07/18 16:00 03/07/18 20:00 03/07/18 20:22 Temperature 97.8 F 98.8 F Pulse Rate 62 80 Respiratory Rate 16 16 16 Blood Pressure 137/78 141/88 H Pulse Oximetry 100 98 03/07/18 22:00 03/08/18 00:00 03/08/18 02:00 Temperature 98.7 F Pulse Rate 62 56 L 64 Respiratory Rate 12 Blood Pressure 143/96 H Pulse Oximetry 99 03/08/18 04:00 03/08/18 04:01 03/08/18 06:00 Temperature 98.1 F Pulse Rate 91 H 60 Respiratory Rate 13 12 Blood Pressure 136/76 Pulse Oximetry 98 98 03/08/18 07:39 03/08/18 07:42 Temperature Pulse Rate 74 Respiratory Rate 12 16 Blood Pressure Pulse Oximetry Intake & Output 03/07/18 03/08/18 03/08/18 18:59 06:59 18:59 Intake Total 1703 / 1703 2143 / 2143 Output Total 1700 / 1700 1500 / 1500 Balance 3 / 3 643 / 643 Weight 74 kg Intake: IV 1200 / 1200 1450 / 1450 Diprivan 1000 mg/100 ml Inj 1, 200 / 200 200 / 200 000 mg In 100 ml @ 5 MCG/KG/MIN 2.449 mls/hr IV.CONT TITRATE PRN Rx#:[id number] NS Inj 1,000 ML @ 70 mls/hr IV. 1000 / 1000 1000 / 1000 CONT .[id number] [facility] Rx#:[id number] Cardene Inj 25 MG In NS Inj 240 250 / 250 ML @ 5 MG/HR 50 mls/hr IV.CONT TITRATE PRN Rx#:[id number] Tube Feeding 503 / 503 573 / 573 Tube Irrigant 120 / 120 Output: Urine Amount (Catheter) 1700 / 1700 1500 / 1500 Indwelling Urethral Catheter 1700 / 1700 1500 / 1500 Other: # Bowel Movements 0 Result Diagrams: 03/05/18 06:23 03/05/18 06:23 Objective Remarks: GEN: 57-year-old -[place] female who is intubated sedated with propofol HEENT: Atraumatic normocephalic. Pupils are 2 mm reactive. Orotracheally intubated NECK: Supple. No JVD LUNGS: Air entry equal bilaterally no wheezes or crackles. Underline respiratory rate is low. HEART: S1 and S2 normal, no murmur. Blood pressure adequately controlled, Cardene restarted. ABDOMEN: Soft. Nontender no organomegaly EXTREMITIES: No pedal edema. Warm and well-perfused. NEUROLOGIC: Intubated and sedated but opens eyes to stimulation, intermittently follows commands with left upper extremity moves left lower extremity spontaneously. Becomes agitated easily when sedation is light. 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 Start sedation vacation -CT head today shows stable pontine hemorrhage -Target systolic blood pressure less than 110-150 -Target sodium 145-150 -CTA of the head and neck essentially negative -Repeat head CT March 06 without change in the pontine bleed size, no hydrocephalus. RESP: Acute respiratory failure -PRVC/AC. Ventilator bundle -DuoNeb every 6 hours scheduled and as needed -Start weaning trials today -We will attempt to extubate and watch airway closely. CV: Hypertensive emergency -Cardene infusion to keep systolic blood pressure less than 120-150 -Use as needed labetalol for additional control. Scheduled Coreg 6.25 mg twice daily -Normal saline IV fluids 84 mL/h, 2d echo GI: -IV famotidine -Tube feeds with Jevity -Bowel regimen : Elevated CPK Acute kidney insufficiency -Monitor renal function closely. Grewal catheter for accurate intake output -Continue hydration ID: -Monitor closely for infection HEME: -Monitor CBC, coags ENDO: Hypokalemia Hyperglycemia -Electrolyte replacement per protocol -Sliding scale insulin, f/u hemoglobin A1c PROPH: -Bilateral lower extremity SCDs/ROBY. IV famotidine for GI prophylaxis -Chemical DVT prophylaxis is contraindicated LINES: -Utilize peripheral IVs, central line if needed Overall impression: Patient is critically ill with potentially life-threatening acute pontine hemorrhage. Blood pressure control has been good with intravenous Cardene, now converting to oral antihypertensives. She remains ventilator dependent and does demonstrate a reliable respiratory effort. We will attempt extubation and watch her airway closely.
[2018-03-08 10:25] LABS: Calcium 7.9 mg/dL (8.5-10.1); Magnesium 2.1 mg/dL (1.5-2.5); Phosphorus 1.9 mg/dL (2.5-4.9)
[2018-03-08 10:29] LABS: Potassium 2.9 meq/L (3.5-5.1)
--- NOTE | 2018-03-08 12:30 | P.PNNS ---
Subjective Interval history: No acute events overnight. Physical Exam Vital signs: Vital Signs 03/07/18 13:46 03/07/18 16:00 03/07/18 20:00 Temperature 97.8 F 98.8 F Pulse Rate 62 80 Respiratory Rate 16 16 16 Blood Pressure 137/78 141/88 H Pulse Oximetry 98 100 03/07/18 20:22 03/07/18 22:00 03/08/18 00:00 Temperature 98.7 F Pulse Rate 62 56 L Respiratory Rate 16 12 Blood Pressure 143/96 H Pulse Oximetry 98 99 03/08/18 02:00 03/08/18 04:00 03/08/18 04:01 Temperature 98.1 F Pulse Rate 64 91 H Respiratory Rate 13 12 Blood Pressure 136/76 Pulse Oximetry 98 98 03/08/18 06:00 03/08/18 07:39 03/08/18 07:42 Temperature Pulse Rate 60 74 Respiratory Rate 12 16 Blood Pressure Pulse Oximetry 03/08/18 08:00 03/08/18 10:00 03/08/18 10:38 Temperature 98.1 F Pulse Rate 91 H 68 Respiratory Rate 13 12 Blood Pressure 136/76 Pulse Oximetry 98 97 Intake & Output 03/07/18 03/08/18 03/08/18 18:59 06:59 18:59 Intake Total 1703 / 1703 2393 / 2393 1100 / 1100 Output Total 1700 / 1700 1500 / 1500 Balance 3 / 3 893 / 893 1100 / 1100 Weight 74 kg Intake: IV 1200 / 1200 1700 / 1700 1100 / 1100 Diprivan 1000 mg/100 ml Inj 1, 200 / 200 200 / 200 100 / 100 000 mg In 100 ml @ 5 MCG/KG/MIN 2.449 mls/hr IV.CONT TITRATE PRN Rx#:[id number] NS Inj 1,000 ML @ 70 mls/hr IV. 1000 / 1000 1000 / 1000 1000 / 1000 CONT .[id number] [facility] Rx#:[id number] Cardene Inj 25 MG In NS Inj 240 500 / 500 ML @ 5 MG/HR 50 mls/hr IV.CONT TITRATE PRN Rx#:[id number] Tube Feeding 503 / 503 573 / 573 Tube Irrigant 120 / 120 Output: Urine Amount (Catheter) 1700 / 1700 1500 / 1500 Indwelling Urethral Catheter 1700 / 1700 1500 / 1500 Other: # Bowel Movements 0 Narrative: Sedated this AM for agitation (on 30 of propofol) Does not open eyes Intubated Localizes left upper extremity Dense right upper extremity paresis Withdraws left lower extremity greater than right lower extremity - Urinary Catheter Management Indwelling Urethral Catheter Cath placed during this visit: yes, but has since been removed by the nurse Reason for continuing: Continue criteria not met Insertion date: 03/03/18 Insertion time: 09:02 Removal date: 03/08/18 Removal time: 08:05 2000 Cath placed during this visit: yes, but has since been removed by the nurse Reason for continuing: Continue criteria not met Removal date: 03/08/18 Removal time: 08:15 Assessment and Plan - Assessment (1) 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 Sanchez is a 57 y/o female who had a pontine intracerebral hemorrhage. Repeat CT head on 03/05 was stable as compared to presenting scan. No evidence of hydrocephalus with a patent 4th ventricular system. Plan: Continue to monitor and treat blood pressure with goal SBP of 100-140. Continue with neuro checks. I called and updated her mother, Daniel, on her condition on 03/06/18.
[2018-03-08] MEDS: Potassium Chlor 20 mEq Premix 20 MEQ/100 ML PIGGYBACK IV.SIG PRN ×3 (13:39→19:57)
[2018-03-08] MEDS: Potassium Chlor 10 mEq Premix 10 MEQ/100 ML PIGGYBACK IV.SIG SCH ×6 (13:56→19:21)
[2018-03-09] MEDS: Insulin NovoLIN Regular Correctional Sugar Inj SQ SCH ×5 (00:19→23:43)
--- NOTE | 2018-03-09 04:28 | XR ---
EXAM DATE: 03/09/2018 3:36 AM EDT AGE/SEX: 57 years / Female INDICATIONS: Short of breath. CLINICAL DATA: This is the patient's subsequent encounter. Patient reports that signs and symptoms h ave been present for 1 week and indicates a pain score of Nonresponsive. MEDICAL/SURGICAL HISTORY: Stroke. None. [place] [facility] [place]. . FINDINGS: A single AP view of the chest demonstrates left basilar density. Cardiomegaly. Endotracheal tube, giovanna ogastric tube and right subclavian central line are unchanged.. The cardiomediastinal contours are u nremarkable. Osseous structures are intact. CONCLUSION: Left basilar density could be atelectasis or infiltrate. Electronically signed by: Teo Pike MD 03/09/2018 4:27 AM EDT
[2018-03-09 05:32] LABS: Carbon Dioxide 26.4 meq/L (21.0-32.0); Potassium 3.5 meq/L (3.5-5.1)
[2018-03-09] MEDS: Propofol 1000 mg/100 ml Inj 1,000 MG/100 ML BOTTLE IV.CONT PRN (06:03)
[2018-03-09] MEDS: Sod Chloride 0.9% Inj 1,000 ML IV.CONT SCH (06:31)
[2018-03-09] MEDS: hydrALAZINE 50 MG Tablet PO SCH ×3 (06:35→22:25)
[2018-03-09] MEDS ORDERED: Dexamethasone Inj 20 MG/5 ML Vial IV.PUSH ONE (07:46)
--- NOTE | 2018-03-09 08:00 | P.PNCC ---
Subjective Subjective Remarks/Hospital Course: Patient is a 57-year-old -[place] female who presented to the emergency department today with right upper and lower extremity weakness and slurred speech. Emergency department had difficulty getting detailed history due to impaired speech and acute onset of symptoms. She was unable to tell them when the symptoms started. 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 Dr. Samuel was consulted, he recommended targeting systolic blood pressure 120-130. Patient came in with systolic blood pressure varying from 170-180. She was started on Cardene infusion and critical care medicine was consulted. Patient was almost flaccid on the right side. While in the emergency department patient vomited twice and there was increasing aphasia. Patient was intubated by ER physician for airway protection I evaluated the patient in the emergency department. Currently she is sedated with propofol on the ventilator. Systolic blood pressure 140-150. I recommended increasing Cardene and increasing propofol. I discussed with Dr. Samuel again. We will rescan the patient with a CT brain prior to ICU transfer to rule out increasing hemorrhage or in any obstruction to the fourth ventricle SUBJ 03/04/18: Patient remains intubated sedated with propofol. On Cardene infusion for blood pressure control. Neurosurgery recommends continued medical management with aggressive blood pressure control target 120-160. Repeat CT head yesterday slight increase in the blood, fourth ventricle remain patent. Will repeat CT scan 03/05/18 03/05/18: CT of the head shows stable pontine hemorrhage. Patient currently is heavily sedated. We will start sedation vacation attempt spontaneous breathing trials. 03/06: CT scan without hydrocephalus. Areas of bleed unchanged but large. Brief attempts at spontaneous ventilation has not been successful today. She does continue to open her eyes and track to a voice. 03/07: She gets pretty agitated when sedation is low. Performs well on spontaneous breathing trials. The bleed appears stable at this time without change. We will attempt extubation and find out if she can protect her airway. 03/08: We will continue to perform weaning trials. Will attempt extubation and observe airway closely. Yesterday she was much too agitated to attempt extubation but perhaps today will have more success. Change out Grewal to a wick device. Increasing ventricular ectopy will check electrolytes and replace as needed. No evidence of cardiac injury. 03/09: Remains stable no acute events overnight. Required Cardene which is currently weaned off. Patient noted to have swelling of the tongue and scleral edema, no cuff leak. Day 7 on the vent may need tracheostomy Objective Vital Signs / I&O: Vital Signs 03/08/18 08:00 03/08/18 10:00 03/08/18 10:38 Temperature 98.1 F Pulse Rate 91 H 68 Respiratory Rate 13 12 Blood Pressure 136/76 Pulse Oximetry 98 97 03/08/18 12:00 03/08/18 14:00 03/08/18 15:05 Temperature 98.1 F Pulse Rate 91 H 71 Respiratory Rate 13 13 Blood Pressure 136/76 Pulse Oximetry 98 97 03/08/18 16:00 03/08/18 18:00 03/08/18 20:00 Temperature 98.1 F 97.7 F Pulse Rate 71 71 74 Respiratory Rate 13 15 Blood Pressure 136/76 126/83 Pulse Oximetry 98 95 03/08/18 20:11 03/08/18 22:00 03/08/18 23:47 Temperature Pulse Rate 76 Respiratory Rate 15 13 Blood Pressure Pulse Oximetry 95 94 L 03/09/18 00:00 03/09/18 02:00 03/09/18 04:00 Temperature 97.9 F 98.6 F Pulse Rate 69 58 L 63 Respiratory Rate 13 12 Blood Pressure 140/91 H 136/88 Pulse Oximetry 97 95 03/09/18 06:00 Temperature Pulse Rate 57 L Respiratory Rate Blood Pressure Pulse Oximetry Intake & Output 03/08/18 03/09/18 03/09/18 18:59 06:59 18:59 Intake Total 2232 / 2232 2423 / 2423 Output Total 600 / 600 600 / 600 Balance 1632 / 1632 1823 / 1823 Weight 75.9 kg Intake: IV 1550 / 1550 1660 / 1660 Diprivan 1000 mg/100 ml Inj 1, 200 / 200 200 / 200 000 mg In 100 ml @ 5 MCG/KG/MIN 2.449 mls/hr IV.CONT TITRATE PRN Rx#:[id number] NS Inj 1,000 ML @ 70 mls/hr IV. 1000 / 1000 1000 / 1000 CONT .[id number] [facility] Rx#:[id number] Cardene Inj 25 MG In NS Inj 240 250 / 250 ML @ 5 MG/HR 50 mls/hr IV.CONT TITRATE PRN Rx#:[id number] KCl 20 mEq Premix Inj 20 meq In 100 / 100 200 / 200 100 ml @ 50 mls/hr IV.SIG Q2H PRN Rx#:[id number] Potassium Phosphate Inj 30 MMOL 260 / 260 In NS Inj 250 ML @ 42 mls/hr IV.SIG UNSCH PRN Rx#:[id number] Tube Feeding 682 / 682 583 / 583 Tube Irrigant 180 / 180 Output: Urine 600 / 600 600 / 600 Other: # Bowel Movements 0 Result Diagrams: 03/05/18 06:23 03/09/18 05:00 Objective Remarks: GEN: 57-year-old -[place] female who is intubated sedated with propofol HEENT: Atraumatic normocephalic. Pupils are 2 mm reactive. Significant scleral edema, tongue swollen and protruding NECK: Supple. No JVD LUNGS: Air entry equal bilaterally no wheezes or crackles. Tolerating CPAP today HEART: S1 and S2 normal, no murmur. Blood pressure adequately controlled, Cardene now weaned off ABDOMEN: Soft. Nontender no organomegaly EXTREMITIES: No pedal edema. Warm and well-perfused. NEUROLOGIC: Intubated and sedated, opens eyes to stimulation, intermittently follows commands with left upper extremity moves left lower extremity spontaneously. Becomes agitated easily when sedation is light. 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 Start sedation vacation -CT head today shows stable pontine hemorrhage -Target systolic blood pressure less than 110-150 -Target sodium 145-150 -CTA of the head and neck essentially negative -Repeat head CT March 06 without change in the pontine bleed size, no hydrocephalus. RESP/ENT: Acute respiratory failure Swollen tongue -PRVC/AC. Ventilator bundle -DuoNeb every 6 hours scheduled and as needed -Daily weaning trials today -We will attempt to extubate if patient can consistently follow commands, and has an air leak -Stop IV fluids due to tongue swelling. Appears fluid overload rather than angioedema. -IV Lasix 40 mg x1. Decadron 8 mg IV x1 CV: Hypertensive emergency -Cardene infusion to keep systolic blood pressure less than 120-150 -Use as needed labetalol for additional control. Scheduled Coreg 6.25 mg twice daily. Scheduled hydralazine 50 mg p.o. every 8 hours -DC NS. IV Lasix 40 mg x1. Decadron 8 mg IV x1 GI: -IV famotidine -Tube feeds with Jevity -Bowel regimen : Elevated CPK Acute kidney insufficiency-resolved -Monitor renal function closely. Grewal catheter for accurate intake output ID: -Monitor closely for infection HEME: -Monitor CBC, coags ENDO: Hypokalemia Hyperglycemia -Electrolyte replacement per protocol -Sliding scale insulin, f/u hemoglobin A1c PROPH: -Bilateral lower extremity SCDs/ROBY. IV famotidine for GI prophylaxis -Chemical DVT prophylaxis is contraindicated LINES: -Utilize peripheral IVs, central line if needed Overall impression: Patient is critically ill with potentially life-threatening acute pontine hemorrhage. Blood pressure control has been good with intravenous Cardene, now converting to oral antihypertensives. She remains ventilator dependent and does demonstrate a reliable respiratory effort. Lack of cuff leak prevents extubation today
[2018-03-09] MEDS: Famotidine PF Inj 20 MG/2 ML Vial IV.PUSH SCH ×2 (08:51→20:55)
[2018-03-09] MEDS: Senna/Docusate Sodium 8.6/50 MG Tablet PO SCH ×2 (08:51→21:52)
[2018-03-09] MEDS: Carvedilol 6.25 MG Tablet PO SCH ×2 (08:52→22:25)
[2018-03-09] MEDS: Dexmedetomidine Inj 200 MCG in Sodium Chlor 0.9% Inj 48 ML IV.CONT PRN ×3 (08:59→21:28)
[2018-03-09] MEDS ORDERED: Potassium Chloride 20 MEQ Pwd Pkt NG/OG ONE (09:25)
[2018-03-09] MEDS: niCARdipine Inj 25 MG in Sodium Chlor 0.9% Inj 240 ML IV.CONT PRN (11:01)
[2018-03-09] MEDS: Hyoscyamine Inj 0.5 MG/ML Ampul IV.PUSH PRN (11:08)
--- NOTE | 2018-03-09 15:55 | P.PNNS ---
Subjective Interval history: More alert today off sedation (Dex) Physical Exam Vital signs: Vital Signs 03/08/18 16:00 03/08/18 18:00 03/08/18 20:00 Temperature 98.1 F 97.7 F Pulse Rate 71 71 74 Respiratory Rate 13 15 Blood Pressure 136/76 126/83 Pulse Oximetry 98 95 03/08/18 20:11 03/08/18 22:00 03/08/18 23:47 Temperature Pulse Rate 76 Respiratory Rate 15 13 Blood Pressure Pulse Oximetry 95 94 L 03/09/18 00:00 03/09/18 02:00 03/09/18 04:00 Temperature 97.9 F 98.6 F Pulse Rate 69 58 L 63 Respiratory Rate 13 12 Blood Pressure 140/91 H 136/88 Pulse Oximetry 97 95 03/09/18 06:00 03/09/18 07:45 03/09/18 08:00 Temperature 99 F Pulse Rate 57 L 72 Respiratory Rate Blood Pressure 151/90 H Pulse Oximetry 95 98 03/09/18 10:00 03/09/18 12:00 03/09/18 15:34 Temperature 99 F Pulse Rate 81 67 Respiratory Rate 26 H Blood Pressure 116/75 Pulse Oximetry 97 97 Intake & Output 03/08/18 03/09/18 03/09/18 18:59 06:59 18:59 Intake Total 2232 / 2232 2423 / 2423 50 / 50 Output Total 600 / 600 600 / 600 Balance 1632 / 1632 1823 / 1823 50 / 50 Weight 75.9 kg Intake: IV 1550 / 1550 1660 / 1660 50 / 50 Precedex Inj 200 MCG In NS Inj 50 / 50 48 ML @ 0.2 MCG/KG/HR 3.79 mls/ hr IV.CONT TITRATE PRN Rx#: [id number] Diprivan 1000 mg/100 ml Inj 1, 200 / 200 200 / 200 000 mg In 100 ml @ 5 MCG/KG/MIN 2.449 mls/hr IV.CONT TITRATE PRN Rx#:[id number] NS Inj 1,000 ML @ 70 mls/hr IV. 1000 / 1000 1000 / 1000 CONT .[id number] [facility] Rx#:[id number] Cardene Inj 25 MG In NS Inj 240 250 / 250 ML @ 5 MG/HR 50 mls/hr IV.CONT TITRATE PRN Rx#:[id number] KCl 20 mEq Premix Inj 20 meq In 100 / 100 200 / 200 100 ml @ 50 mls/hr IV.SIG Q2H PRN Rx#:[id number] Potassium Phosphate Inj 30 MMOL 260 / 260 In NS Inj 250 ML @ 42 mls/hr IV.SIG UNSCH PRN Rx#:[id number] Tube Feeding 682 / 682 583 / 583 Tube Irrigant 180 / 180 Output: Urine 600 / 600 600 / 600 Other: # Bowel Movements 0 Narrative: Sedated this AM paused (Dex) Does not open eyes Intubated Localizes left upper extremity -- possible following commands -- not happy with intubation Dense right upper extremity paresis Withdraws left lower extremity greater than right lower extremity Facial swelling improved over course of day - Urinary Catheter Management Indwelling Urethral Catheter Cath placed during this visit: yes, but has since been removed by the nurse Reason for continuing: Continue criteria not met Insertion date: 03/03/18 Insertion time: 09:02 Removal date: 03/08/18 Removal time: 08:05 2000 Cath placed during this visit: yes, but has since been removed by the nurse Reason for continuing: Continue criteria not met Removal date: 03/08/18 Removal time: 08:15 Assessment and Plan - Assessment (1) 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 Sanchez is a 57 y/o female who had a pontine intracerebral hemorrhage. Repeat CT head on 03/05 was stable as compared to presenting scan. No evidence of hydrocephalus with a patent 4th ventricular system. Plan: Continue to monitor and treat blood pressure with goal SBP of 100-140. Continue with neuro checks. Ok for trach tomorrow given swelling, prolonged intubation, and 6 days from ictus- Spoke with Intensive attending. called and updated her mother, Daniel, on her condition on 03/06/18.
[2018-03-10] MEDS: Insulin NovoLIN Regular Correctional Sugar Inj SQ SCH ×5 (05:52→23:24)
[2018-03-10] MEDS: Dexmedetomidine Inj 200 MCG in Sodium Chlor 0.9% Inj 48 ML IV.CONT PRN (06:03)
[2018-03-10] MEDS: hydrALAZINE 50 MG Tablet PO SCH ×3 (06:04→21:03)
[2018-03-10] MEDS: niCARdipine Inj 25 MG in Sodium Chlor 0.9% Inj 240 ML IV.CONT PRN ×4 (06:14→23:24)
--- NOTE | 2018-03-10 07:20 | P.PNCC ---
Subjective Subjective Remarks/Hospital Course: Patient is a 57-year-old -[place] female who presented to the emergency department today with right upper and lower extremity weakness and slurred speech. Emergency department had difficulty getting detailed history due to impaired speech and acute onset of symptoms. She was unable to tell them when the symptoms started. 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 Dr. Samuel was consulted, he recommended targeting systolic blood pressure 120-130. Patient came in with systolic blood pressure varying from 170-180. She was started on Cardene infusion and critical care medicine was consulted. Patient was almost flaccid on the right side. While in the emergency department patient vomited twice and there was increasing aphasia. Patient was intubated by ER physician for airway protection I evaluated the patient in the emergency department. Currently she is sedated with propofol on the ventilator. Systolic blood pressure 140-150. I recommended increasing Cardene and increasing propofol. I discussed with Dr. Samuel again. We will rescan the patient with a CT brain prior to ICU transfer to rule out increasing hemorrhage or in any obstruction to the fourth ventricle SUBJ 03/04/18: Patient remains intubated sedated with propofol. On Cardene infusion for blood pressure control. Neurosurgery recommends continued medical management with aggressive blood pressure control target 120-160. Repeat CT head yesterday slight increase in the blood, fourth ventricle remain patent. Will repeat CT scan 03/05/18 03/05/18: CT of the head shows stable pontine hemorrhage. Patient currently is heavily sedated. We will start sedation vacation attempt spontaneous breathing trials. 03/06: CT scan without hydrocephalus. Areas of bleed unchanged but large. Brief attempts at spontaneous ventilation has not been successful today. She does continue to open her eyes and track to a voice. 03/07: She gets pretty agitated when sedation is low. Performs well on spontaneous breathing trials. The bleed appears stable at this time without change. We will attempt extubation and find out if she can protect her airway. 03/08: We will continue to perform weaning trials. Will attempt extubation and observe airway closely. Yesterday she was much too agitated to attempt extubation but perhaps today will have more success. Change out Grewal to a wick device. Increasing ventricular ectopy will check electrolytes and replace as needed. No evidence of cardiac injury. 03/09: Remains stable no acute events overnight. Required Cardene which is currently weaned off. Patient noted to have swelling of the tongue and scleral edema, no cuff leak. Day 7 on the vent may need tracheostomy 03/10: Remains intubated sedated with Precedex 0.7 mcg/kg/h. Cardene restart for adequate blood pressure control. Slightly more awake today intermittently follows on the left side. Tongue and left eye swelling improved persistent right eye scleral edema Objective Vital Signs / I&O: Vital Signs 03/09/18 07:45 03/09/18 08:00 03/09/18 10:00 Temperature 99 F Pulse Rate 72 81 Respiratory Rate Blood Pressure 151/90 H Pulse Oximetry 95 98 03/09/18 12:00 03/09/18 14:00 03/09/18 15:34 Temperature 99 F Pulse Rate 67 60 Respiratory Rate 26 H Blood Pressure 116/75 Pulse Oximetry 97 97 03/09/18 16:00 03/09/18 18:00 03/09/18 20:00 Temperature 99.4 F 98.6 F Pulse Rate 59 L 65 64 Respiratory Rate 17 17 Blood Pressure 118/73 131/78 Pulse Oximetry 98 98 03/09/18 20:12 03/09/18 22:00 03/09/18 23:17 Temperature Pulse Rate 74 Respiratory Rate 17 12 Blood Pressure Pulse Oximetry 95 100 03/10/18 00:00 03/10/18 02:00 03/10/18 03:17 Temperature 97.8 F Pulse Rate 53 L 61 Respiratory Rate 12 13 Blood Pressure 120/75 Pulse Oximetry 99 98 03/10/18 04:00 03/10/18 06:00 Temperature 97.7 F Pulse Rate 66 68 Respiratory Rate 14 Blood Pressure 138/85 Pulse Oximetry 99 Intake & Output 03/09/18 03/10/18 03/10/18 18:59 06:59 18:59 Intake Total 536 / 536 734 / 734 Output Total 900 / 900 Balance -364 / -364 734 / 734 Weight 75.6 kg Intake: IV 50 / 50 350 / 350 Precedex Inj 200 MCG In NS Inj 50 / 50 100 / 100 48 ML @ 0.2 MCG/KG/HR 3.79 mls/ hr IV.CONT TITRATE PRN Rx#: [id number] Cardene Inj 25 MG In NS Inj 240 250 / 250 ML @ 5 MG/HR 50 mls/hr IV.CONT TITRATE PRN Rx#:[id number] Tube Feeding 176 / 176 204 / 204 Tube Irrigant 60 / 60 180 / 180 Water Bolus Amount 250 / 250 Output: Urine 900 / 900 Other: # Incontinent Voids 4 # Bowel Movements 0 Result Diagrams: 03/10/18 08:00 03/10/18 08:00 Objective Remarks: GEN: 57-year-old -[place] female who is intubated mildly sedated with Precedex HEENT: Atraumatic normocephalic. Pupils are 2 mm reactive. persistent right eye scleral edema. Tongue swelling has improved NECK: Supple. No JVD LUNGS: Air entry equal bilaterally no wheezes or crackles. Tolerating CPAP HEART: S1 and S2 normal, no murmur. Blood pressure adequately controlled, on Cardene ABDOMEN: Soft. Nontender no organomegaly EXTREMITIES: No pedal edema. Warm and well-perfused. NEUROLOGIC: Intubated and opens eyes to stimulation, intermittently follows commands with left upper extremity moves left lower extremity spontaneously. 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 Daily sedation vacation -CT head today shows stable pontine hemorrhage -Target systolic blood pressure less than 120-150 -Target sodium 145-150 -CTA of the head and neck essentially negative -Repeat head CT March 06 without change in the pontine bleed size, no hydrocephalus. RESP/ENT: Acute respiratory failure -PRVC/AC. Ventilator bundle. -CPAP trial today with possible extubation, if she fails needs tracheostomy -DuoNeb every 6 hours scheduled and as needed -IV Lasix 40 mg x1 repeat dose today. Decadron 8 mg IV x1 03/09, and continue 4 mg IV q8h CV: Hypertensive emergency -Cardene infusion to keep systolic blood pressure less than 120-150 -Use as needed labetalol for additional control. Scheduled Coreg 6.25 mg twice daily. Scheduled hydralazine 50 mg p.o. every 8 hours -IV Lasix 40 mg x1. GI: -IV famotidine -Tube feeds with Jevity-hold for extubation -Bowel regimen : Elevated CPK Acute kidney insufficiency-resolved -Monitor renal function closely. Grewal catheter for accurate intake output ID: -Monitor closely for infection HEME: -Monitor CBC, coags ENDO: Hypokalemia Hyperglycemia -Electrolyte replacement per protocol -Sliding scale insulin, f/u hemoglobin A1c PROPH: -Bilateral lower extremity SCDs/ROBY. IV famotidine for GI prophylaxis -Chemical DVT prophylaxis is contraindicated LINES: -Utilize peripheral IVs, central line if needed Critically ill but slowly improving from pontine hemorrhage. Attempt to extubate if she fails will need tracheostomy. Level 3
--- NOTE | 2018-03-10 08:03 | XR ---
EXAM DATE: 03/10/2018 7:36 AM EDT AGE/SEX: 57 years / Female INDICATIONS: Respiratory distress. CLINICAL DATA: This is the patient's subsequent encounter. Patient reports that signs and symptoms h ave been present for 1 week and indicates a pain score of Nonresponsive. MEDICAL/SURGICAL HISTORY: . Stroke. None. COMPARISON: [facility] – [place] CHEST 1V SINGLE AP, 03/09/2018. . FINDINGS: A single AP view of the chest was performed. Endotracheal tube, partially imaged nasoenteric tube, a nd right subclavian central venous catheter remain in place. Additional support lines and devices are presumed to be external to the patient. Improved aeration of the left lung base with mild persistent streaky opacification, likely atelectasis. No appreciable pneumothorax. Grossly stable cardiomediast inal silhouette, allowing for differences in patient rotation. CONCLUSION: Improved aeration of the left lung base. Endotracheal tube, nasoenteric tube, and right subclavian ce ntral venous catheter remain in place. Electronically signed by: Katelynn Goldman MD 03/10/2018 8:02 AM EDT
[2018-03-10 08:13] LABS: Hematocrit 32.9 % (35.0-46.0); Hemoglobin 11.3 gm/dL (11.6-15.3); Mean Corpuscular HGB Conc 34.4 % (32.0-36.0); Mean Corpuscular Hemoglobin 33.4 pg (27.0-34.0); Mean Corpuscular Volume 97.1 fL (80.0-100.0); Mean Platelet Volume 12.1 fL (7.0-11.0); Platelet Count 124 th/mm3 (150-450); Red Blood Count 3.39 mil/mm3 (4.00-5.30); Red Cell Distribution Width 15.6 % (11.6-17.2); White Blood Count 12.1 th/mm3 (4.0-11.0)
[2018-03-10 08:58] LABS: Alanine Aminotransferase 133 U/L (10-53); Albumin 3.6 g/dL (3.4-5.0); Alkaline Phosphatase 74 U/L (45-117); Anion Gap 7 meq/L (5-15); Aspartate Aminotransferase 99 U/L (15-37); Blood Urea Nitrogen 18 mg/dL (7-18); Calcium 9.3 mg/dL (8.5-10.1); Carbon Dioxide 28.5 meq/L (21.0-32.0); Chloride 108 meq/L (98-107); Glomerular Filtration Rate 44 mL/min (>89); Glucose,Random 114 mg/dL (74-106); Potassium 3.8 meq/L (3.5-5.1); Sodium 143 meq/L (136-145); Total Protein 7.9 g/dL (6.4-8.2)
--- NOTE | 2018-03-10 09:05 | P.PNNS ---
Subjective Interval history: No acute events overnight. Off sedation this morning. Physical Exam Vital signs: Vital Signs 03/09/18 10:00 03/09/18 12:00 03/09/18 14:00 Temperature 99 F Pulse Rate 81 67 60 Respiratory Rate 26 H Blood Pressure 116/75 Pulse Oximetry 97 03/09/18 15:34 03/09/18 16:00 03/09/18 18:00 Temperature 99.4 F Pulse Rate 59 L 65 Respiratory Rate 17 Blood Pressure 118/73 Pulse Oximetry 97 98 03/09/18 20:00 03/09/18 20:12 03/09/18 22:00 Temperature 98.6 F Pulse Rate 64 74 Respiratory Rate 17 17 Blood Pressure 131/78 Pulse Oximetry 98 95 03/09/18 23:17 03/10/18 00:00 03/10/18 02:00 Temperature 97.8 F Pulse Rate 53 L 61 Respiratory Rate 12 12 Blood Pressure 120/75 Pulse Oximetry 100 99 03/10/18 03:17 03/10/18 04:00 03/10/18 06:00 Temperature 97.7 F Pulse Rate 66 68 Respiratory Rate 13 14 Blood Pressure 138/85 Pulse Oximetry 98 99 03/10/18 07:51 Temperature Pulse Rate Respiratory Rate 24 Blood Pressure Pulse Oximetry 98 Intake & Output 03/09/18 03/10/18 03/10/18 18:59 06:59 18:59 Intake Total 536 / 536 734 / 734 10 / 10 Output Total 900 / 900 Balance -364 / -364 734 / 734 10 / 10 Weight 75.6 kg Intake: IV 50 / 50 350 / 350 10 / 10 Precedex Inj 200 MCG In NS Inj 50 / 50 100 / 100 0 / 0 48 ML @ 0.2 MCG/KG/HR 3.79 mls/ hr IV.CONT TITRATE PRN Rx#: [id number] Diprivan 1000 mg/100 ml Inj 1, 5 / 5 000 mg In 100 ml @ 5 MCG/KG/MIN 2.449 mls/hr IV.CONT TITRATE PRN Rx#:[id number] Cardene Inj 25 MG In NS Inj 240 250 / 250 ML @ 5 MG/HR 50 mls/hr IV.CONT TITRATE PRN Rx#:[id number] Levophed Inj 4 MG In NS Inj 246 5 / 5 ML @ 2 MCG/MIN 7.5 mls/hr IV. SIG TITRATE PRN Rx#:[id number] Tube Feeding 176 / 176 204 / 204 Tube Irrigant 60 / 60 180 / 180 Water Bolus Amount 250 / 250 Output: Urine 900 / 900 Other: # Incontinent Voids 4 # Bowel Movements 0 Narrative: Opens eyes spontaneously Mouthing words around endotracheal tube (Intubated) Intermittently follows commands left upper extremity (thumbs up, squeeze/release ) Reliably localizes left upper extremity Intermittently follows commands bilateral lower extremities, left greater than right (wiggles toes) Reliably withdraws bilateral lower extremities, left greater than right Trace withdrawal right upper extremity - Urinary Catheter Management Indwelling Urethral Catheter Cath placed during this visit: yes, but has since been removed by the nurse Reason for continuing: Continue criteria not met Insertion date: 03/03/18 Insertion time: 09:02 Removal date: 03/08/18 Removal time: 08:05 2000 Cath placed during this visit: yes, but has since been removed by the nurse Reason for continuing: Continue criteria not met Removal date: 03/08/18 Removal time: 08:15 Assessment and Plan - Assessment (1) 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 Sanchez is a 57 y/o female who had a pontine intracerebral hemorrhage. Repeat CT head on 03/05 was stable as compared to presenting scan. No evidence of hydrocephalus with a patent 4th ventricular system. Plan: Continue to monitor and treat blood pressure with assisted goal of normotension. Continue with neuro checks. Critical care team considering extubation trial this AM.
[2018-03-10 09:09] LABS: ABG PCO2 33 mmHg (38-42); ABG PO2 82 mmHg (61-120)
[2018-03-10] MEDS: Hyoscyamine Inj 0.5 MG/ML Ampul IV.PUSH PRN (09:23)
[2018-03-10] MEDS: Famotidine PF Inj 20 MG/2 ML Vial IV.PUSH SCH ×2 (09:23→20:35)
[2018-03-10] MEDS: amLODIPine 5 MG Tablet PO SCH (09:24)
[2018-03-10] MEDS: Carvedilol 6.25 MG Tablet PO SCH ×2 (09:24→20:32)
[2018-03-10] MEDS: Senna/Docusate Sodium 8.6/50 MG Tablet PO SCH ×2 (09:24→20:33)
[2018-03-11] MEDS: hydrALAZINE 50 MG Tablet PO SCH (06:57)
[2018-03-11] MEDS: Insulin NovoLIN Regular Correctional Sugar Inj SQ SCH ×3 (06:58→19:31)
[2018-03-11] MEDS: Famotidine PF Inj 20 MG/2 ML Vial IV.PUSH SCH ×2 (08:35→20:36)
[2018-03-11] MEDS: niCARdipine Inj 25 MG in Sodium Chlor 0.9% Inj 240 ML IV.CONT PRN ×2 (08:49→18:52)
[2018-03-11] MEDS: Senna/Docusate Sodium 8.6/50 MG Tablet PO SCH ×2 (09:19→20:36)
[2018-03-11] MEDS: amLODIPine 5 MG Tablet PO SCH (09:19)
[2018-03-11] MEDS: Carvedilol 6.25 MG Tablet PO SCH ×2 (09:19→20:36)
--- NOTE | 2018-03-11 11:18 | P.PNNS ---
Subjective Interval history: Extubated 03/10 Physical Exam Vital signs: Vital Signs 03/10/18 12:00 03/10/18 14:00 03/10/18 16:00 Temperature 99.0 F 99.0 F Pulse Rate 79 70 68 Respiratory Rate 24 23 Blood Pressure 136/92 H 151/89 H Pulse Oximetry 99 98 03/10/18 18:00 03/10/18 20:00 03/10/18 22:00 Temperature 98.9 F Pulse Rate 59 L 65 80 Respiratory Rate 22 Blood Pressure 150/85 H Pulse Oximetry 98 03/11/18 00:00 03/11/18 02:00 03/11/18 04:00 Temperature 98.9 F 98.8 F Pulse Rate 66 64 64 Respiratory Rate 22 Blood Pressure 124/74 128/75 Pulse Oximetry 03/11/18 06:00 03/11/18 07:54 03/11/18 08:00 Temperature 97.7 F Pulse Rate 62 54 L Respiratory Rate 22 Blood Pressure 147/67 H Pulse Oximetry 97 98 03/11/18 10:00 Temperature Pulse Rate 59 L Respiratory Rate Blood Pressure Pulse Oximetry Intake & Output 03/10/18 03/11/18 03/11/18 18:59 06:59 18:59 Intake Total 235 / 235 250 / 250 1250 / 1250 Output Total 1500 / 1500 650 / 650 Balance -1265 / -1265 -400 / -400 1250 / 1250 Weight 74.1 kg Intake: IV 235 / 235 250 / 250 1250 / 1250 Precedex Inj 200 MCG In NS Inj 0 / 0 48 ML @ 0.2 MCG/KG/HR 3.79 mls/ hr IV.CONT TITRATE PRN Rx#: [id number] Diprivan 1000 mg/100 ml Inj 1, 5 / 5 000 mg In 100 ml @ 5 MCG/KG/MIN 2.449 mls/hr IV.CONT TITRATE PRN Rx#:[id number] Cardene Inj 25 MG In NS Inj 240 225 / 225 250 / 250 250 / 250 ML @ 5 MG/HR 50 mls/hr IV.CONT TITRATE PRN Rx#:[id number] Levophed Inj 4 MG In NS Inj 246 5 / 5 ML @ 2 MCG/MIN 7.5 mls/hr IV. SIG TITRATE PRN Rx#:[id number] Output: Urine 1400 / 1400 650 / 650 Gastric Drainage 100 / 100 Orogastric Tube 100 / 100 Other: # Voids 1 # Incontinent Voids 2 Date of Last Bowel Movement 03/10/18 03/11/18 03/10/18 # Bowel Movements 3 1 Narrative: Opens eyes to voice Mumbles Intermittently follows commands left upper extremity (thumbs up) Reliably localizes left upper extremity Intermittently follows commands bilateral lower extremities, left greater than right (wiggles toes) Reliably withdraws bilateral lower extremities, left greater than right Weak withdrawal right upper extremity - Urinary Catheter Management Indwelling Urethral Catheter Cath placed during this visit: yes, but has since been removed by the nurse Reason for continuing: Continue criteria not met Insertion date: 03/03/18 Insertion time: 09:02 Removal date: 03/08/18 Removal time: 08:05 2000 Cath placed during this visit: yes, but has since been removed by the nurse Reason for continuing: Continue criteria not met Removal date: 03/08/18 Removal time: 08:15 Assessment and Plan - Assessment (1) 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 Sanchez is a 57 y/o female who had a pontine intracerebral hemorrhage. Repeat CT head on 03/05 was stable as compared to presenting scan. No evidence of hydrocephalus with a patent 4th ventricular system. Plan: Continue to monitor and treat blood pressure with assistant terminal manager goal of normotension. Continue with neuro checks. Extubated 03/10/18, tolerating this AM.
[2018-03-11] MEDS: Hyoscyamine Inj 0.5 MG/ML Ampul IV.PUSH PRN (11:46)
--- NOTE | 2018-03-11 12:14 | P.PNCC ---
Subjective Subjective Remarks/Hospital Course: Patient is a 57-year-old -[place] female who presented to the emergency department today with right upper and lower extremity weakness and slurred speech. Emergency department had difficulty getting detailed history due to impaired speech and acute onset of symptoms. She was unable to tell them when the symptoms started. 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 Dr. Samuel was consulted, he recommended targeting systolic blood pressure 120-130. Patient came in with systolic blood pressure varying from 170-180. She was started on Cardene infusion and critical care medicine was consulted. Patient was almost flaccid on the right side. While in the emergency department patient vomited twice and there was increasing aphasia. Patient was intubated by ER physician for airway protection I evaluated the patient in the emergency department. Currently she is sedated with propofol on the ventilator. Systolic blood pressure 140-150. I recommended increasing Cardene and increasing propofol. I discussed with Dr. Samuel again. We will rescan the patient with a CT brain prior to ICU transfer to rule out increasing hemorrhage or in any obstruction to the fourth ventricle SUBJ 03/04/18: Patient remains intubated sedated with propofol. On Cardene infusion for blood pressure control. Neurosurgery recommends continued medical management with aggressive blood pressure control target 120-160. Repeat CT head yesterday slight increase in the blood, fourth ventricle remain patent. Will repeat CT scan 03/05/18 03/05/18: CT of the head shows stable pontine hemorrhage. Patient currently is heavily sedated. We will start sedation vacation attempt spontaneous breathing trials. 03/06: CT scan without hydrocephalus. Areas of bleed unchanged but large. Brief attempts at spontaneous ventilation has not been successful today. She does continue to open her eyes and track to a voice. 03/07: She gets pretty agitated when sedation is low. Performs well on spontaneous breathing trials. The bleed appears stable at this time without change. We will attempt extubation and find out if she can protect her airway. 03/08: We will continue to perform weaning trials. Will attempt extubation and observe airway closely. Yesterday she was much too agitated to attempt extubation but perhaps today will have more success. Change out Grewal to a wick device. Increasing ventricular ectopy will check electrolytes and replace as needed. No evidence of cardiac injury. 03/09: Remains stable no acute events overnight. Required Cardene which is currently weaned off. Patient noted to have swelling of the tongue and scleral edema, no cuff leak. Day 7 on the vent may need tracheostomy 03/10: Remains intubated sedated with Precedex 0.7 mcg/kg/h. Cardene restart for adequate blood pressure control. Slightly more awake today intermittently follows on the left side. Tongue and left eye swelling improved persistent right eye scleral edema 03/11: Patient was extubated yesterday. Appears to be protecting airway. Intermittently opens eyes, follows commands left upper and lower extremity and somewhat to right lower extremity. Withdraws right upper. Remains on Cardene at 5 mg/hr. I will increase Norvasc to 10 mg daily, increase hydralazine to 100 mg every 8 hours, continue Coreg 6.25 twice daily Objective Vital Signs / I&O: Vital Signs 03/10/18 14:00 03/10/18 16:00 03/10/18 18:00 Temperature 99.0 F Pulse Rate 70 68 59 L Respiratory Rate 23 Blood Pressure 151/89 H Pulse Oximetry 98 03/10/18 20:00 03/10/18 22:00 03/11/18 00:00 Temperature 98.9 F 98.9 F Pulse Rate 65 80 66 Respiratory Rate 22 22 Blood Pressure 150/85 H 124/74 Pulse Oximetry 98 03/11/18 02:00 03/11/18 04:00 03/11/18 06:00 Temperature 98.8 F Pulse Rate 64 64 62 Respiratory Rate Blood Pressure 128/75 Pulse Oximetry 03/11/18 07:54 03/11/18 08:00 03/11/18 10:00 Temperature 97.7 F Pulse Rate 54 L 59 L Respiratory Rate 22 Blood Pressure 147/67 H Pulse Oximetry 97 98 Intake & Output 03/10/18 03/11/18 03/11/18 18:59 06:59 18:59 Intake Total 235 / 235 250 / 250 1250 / 1250 Output Total 1500 / 1500 650 / 650 Balance -1265 / -1265 -400 / -400 1250 / 1250 Weight 74.1 kg Intake: IV 235 / 235 250 / 250 1250 / 1250 Precedex Inj 200 MCG In NS Inj 0 / 0 48 ML @ 0.2 MCG/KG/HR 3.79 mls/ hr IV.CONT TITRATE PRN Rx#: [id number] Diprivan 1000 mg/100 ml Inj 1, 5 / 5 000 mg In 100 ml @ 5 MCG/KG/MIN 2.449 mls/hr IV.CONT TITRATE PRN Rx#:[id number] Cardene Inj 25 MG In NS Inj 240 225 / 225 250 / 250 250 / 250 ML @ 5 MG/HR 50 mls/hr IV.CONT TITRATE PRN Rx#:[id number] Levophed Inj 4 MG In NS Inj 246 5 / 5 ML @ 2 MCG/MIN 7.5 mls/hr IV. SIG TITRATE PRN Rx#:[id number] Output: Urine 1400 / 1400 650 / 650 Gastric Drainage 100 / 100 Orogastric Tube 100 / 100 Other: # Voids 1 # Incontinent Voids 2 Date of Last Bowel Movement 03/10/18 03/11/18 03/10/18 # Bowel Movements 3 1 Result Diagrams: 03/10/18 08:00 03/10/18 08:00 Objective Remarks: GEN: 57-year-old -[place] female who is lying in bed not in any acute distress HEENT: Atraumatic normocephalic. Pupils are 2 mm reactive. Right eye scleral edema. NECK: Supple. No JVD. No stridor LUNGS: Air entry equal bilaterally no wheezes or crackles. Protecting airway at this time HEART: S1 and S2 normal, no murmur. Blood pressure adequately controlled, on Cardene 5 mg/h ABDOMEN: Soft. Nontender no organomegaly EXTREMITIES: No pedal edema. Warm and well-perfused. NEUROLOGIC: Intermittently opens eyes, follows commands left upper and lower extremity and intermittently on right lower extremity. Withdraws right upper. Remains on Cardene at 5 mg/hr. 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 Status: Acute (2) Hypertensive emergency Code(s): I16.1 - Hypertensive emergency Status: Acute (3) Acute respiratory failure Code(s): J96.00 - Acute respiratory failure, unspecified whether with hypoxia or hypercapnia Status: Inactive (4) Hypokalemia Code(s): E87.6 - Hypokalemia Status: Acute (5) Elevated CPK Code(s): R74.8 - Abnormal levels of other serum enzymes Status: Acute - Assessment and Plan Plan: NEURO: Acute pontine hemorrhage Acute encephalopathy Right hemiplegia with aphasia -Most likely hypertensive hemorrhage -Off all sedation neuro status slowly improving -Target systolic blood pressure less than 120-150 -Target sodium 145-150 -CTA of the head and neck essentially negative -Repeat head CT March 06 without change in the pontine bleed size, no hydrocephalus. RESP/ENT: Acute respiratory failure-extubated 03/10/2018 -Tolerating extubation last 24 hours, appears to be protecting airway, if she fails needs tracheostomy -DuoNeb every 6 hours scheduled and as needed -Continue Decadron 4 mg IV q8h, for 24 hours and stop CV: Hypertensive emergency -Cardene infusion to keep systolic blood pressure less than 120-150 -Use as needed labetalol for additional control. Scheduled Coreg 6.25 mg twice daily. -Increase Norvasc to 10 mg daily, increase hydralazine to 100 mg p.o. every 8 hours -IV Lasix 40 mg x1. GI: -IV famotidine -Tube feeds with Jevity-failed swallow eval -Bowel regimen : Elevated CPK Acute kidney insufficiency-resolved -Monitor renal function closely. Grewal catheter for accurate intake output ID: -Monitor closely for infection HEME: -Monitor CBC, coags ENDO: Hypokalemia Hyperglycemia -Electrolyte replacement per protocol -Sliding scale insulin, if needed PROPH: -Bilateral lower extremity SCDs/ROBY. IV famotidine for GI prophylaxis -Chemical DVT prophylaxis is contraindicated LINES: -Utilize peripheral IVs, central line if needed Critically ill but slowly improving from pontine hemorrhage. Tolerating extubation at this time. However if she fails will need tracheostomy Level 3
[2018-03-11] MEDS ORDERED: amLODIPine 5 MG Tablet PO PRN (12:21)
--- NOTE | 2018-03-11 16:24 | P.DIET ---
Nutritional Evaluation Type of nutrition evaluation: follow-up Nutrition consult regarding: Tube Feeding Subjective Subjective Comments: From 03/04: Pt's friends and boss in room at time of visit. Pt's boss states her and the pt are the same height and the boss is 63in. Objective - Diagnosis Hemorrhagic Stroke, Acute Hypoxic Respiratory Failure - Objective % IBW: 137 (ZPH=320# (based on ht given by friends)) Body Weight Used for Calculations: IBW (52.3kg) Energy Needs - Lower Range (kCal/kg): 25 Energy Needs - Upper Range (kCal/kg): 30 Lower Limit kCal/kg (kCals): 1,308 Upper Limit kCal/kg (kCals): 1,569 Lower Limit Protein Factor (Grams per Kg): 1.2 Upper Limit Protein Factor (Grams per Kg): 1.5 Lower Protein Needs (Protein): 63 Upper Protein Needs (Protein): 78 Dietitian Reviewed in Medical Record: Curent medications, Intake & Output, Labs , Medical history, Tube feeding Diet Order: NPO Speech Therapy Recommendations: Yes (recommends npo) Assessment Assessment: Pt extubated yesterday and ST russell recommends continue npo. Pt admitted for hemorrhagic stroke and acute hypoxic respiratory failure. Ht discrepancy noted in chart so ht was obtained by pt's friends in room (63in. per visitors). Pt did look to be 63in, but this is an estimation. Current TF order of Jevity 1.5 @ 50mls/hr is appropriate for this pt and it will provide 100% of pts nutritional requirements as stated above. Recommendations: Continue Jevity 1.5 @ 50mls/hr. Dietitian to Monitor: Lab values, Intake & Output, Tube feeding tolerance, Weight change, Diet advancement, Swallow recommendations, Medical course
[2018-03-12] MEDS: Insulin NovoLIN Regular Correctional Sugar Inj SQ SCH ×4 (00:10→18:16)
[2018-03-12 04:53] LABS: Hematocrit 34.3 % (35.0-46.0); Hemoglobin 11.6 gm/dL (11.6-15.3); Mean Corpuscular HGB Conc 33.9 % (32.0-36.0); Mean Corpuscular Hemoglobin 32.9 pg (27.0-34.0); Mean Corpuscular Volume 97.2 fL (80.0-100.0); Mean Platelet Volume 12.1 fL (7.0-11.0); Platelet Count 139 th/mm3 (150-450); Red Blood Count 3.53 mil/mm3 (4.00-5.30); Red Cell Distribution Width 15.1 % (11.6-17.2); White Blood Count 15.7 th/mm3 (4.0-11.0)
[2018-03-12 05:46] LABS: Alanine Aminotransferase 115 U/L (10-53); Albumin 3.2 g/dL (3.4-5.0); Alkaline Phosphatase 70 U/L (45-117); Anion Gap 10 meq/L (5-15); Aspartate Aminotransferase 79 U/L (15-37); Blood Urea Nitrogen 31 mg/dL (7-18); Calcium 8.6 mg/dL (8.5-10.1); Carbon Dioxide 25.3 meq/L (21.0-32.0); Chloride 105 meq/L (98-107); Glomerular Filtration Rate 52 mL/min (>89); Glucose,Random 142 mg/dL (74-106); Potassium 3.7 meq/L (3.5-5.1); Sodium 140 meq/L (136-145); Total Protein 7.6 g/dL (6.4-8.2)
--- NOTE | 2018-03-12 07:29 | XR ---
EXAM DATE: 03/12/2018 4:11 AM EDT AGE/SEX: 57 years / Female INDICATIONS: Respiratory distress CLINICAL DATA: This is the patient's subsequent encounter. Patient reports that signs and symptoms h ave been present for 1 week and indicates a pain score of Nonresponsive. MEDICAL/SURGICAL HISTORY: Stroke. None. [place]PAR[place] [facility] [place]. . FINDINGS: There is a right subclavian line in place with the tip overlying the superior cavoatrial junction. Th e NG tube is traced into the stomach. The cardiac silhouette is enlarged. There is some mild increase d density in the retrocardiac areas bilaterally. There is some minimal increased density seen in the left perihilar region. The right lung is grossly clear. CONCLUSION: Mild areas of suspected atelectasis or consolidation being worse on the left. Electronically signed by: Ras West MD 03/12/2018 5:16 AM EDT
[2018-03-12] MEDS: amLODIPine 10 MG Tablet PO SCH (09:01)
[2018-03-12] MEDS: Famotidine PF Inj 20 MG/2 ML Vial IV.PUSH SCH ×2 (09:01→20:35)
[2018-03-12] MEDS: Senna/Docusate Sodium 8.6/50 MG Tablet PO SCH ×2 (09:01→20:36)
[2018-03-12] MEDS: Carvedilol 6.25 MG Tablet PO SCH ×2 (09:02→20:35)
--- NOTE | 2018-03-12 09:20 | P.PNCC ---
Subjective Subjective Remarks/Hospital Course: Patient is a 57-year-old -[place] female who presented to the emergency department today with right upper and lower extremity weakness and slurred speech. Emergency department had difficulty getting detailed history due to impaired speech and acute onset of symptoms. She was unable to tell them when the symptoms started. 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 Dr. Samuel was consulted, he recommended targeting systolic blood pressure 120-130. Patient came in with systolic blood pressure varying from 170-180. She was started on Cardene infusion and critical care medicine was consulted. Patient was almost flaccid on the right side. While in the emergency department patient vomited twice and there was increasing aphasia. Patient was intubated by ER physician for airway protection I evaluated the patient in the emergency department. Currently she is sedated with propofol on the ventilator. Systolic blood pressure 140-150. I recommended increasing Cardene and increasing propofol. I discussed with Dr. Samuel again. We will rescan the patient with a CT brain prior to ICU transfer to rule out increasing hemorrhage or in any obstruction to the fourth ventricle SUBJ 03/04/18: Patient remains intubated sedated with propofol. On Cardene infusion for blood pressure control. Neurosurgery recommends continued medical management with aggressive blood pressure control target 120-160. Repeat CT head yesterday slight increase in the blood, fourth ventricle remain patent. Will repeat CT scan 03/05/18 03/05/18: CT of the head shows stable pontine hemorrhage. Patient currently is heavily sedated. We will start sedation vacation attempt spontaneous breathing trials. 03/06: CT scan without hydrocephalus. Areas of bleed unchanged but large. Brief attempts at spontaneous ventilation has not been successful today. She does continue to open her eyes and track to a voice. 03/07: She gets pretty agitated when sedation is low. Performs well on spontaneous breathing trials. The bleed appears stable at this time without change. We will attempt extubation and find out if she can protect her airway. 03/08: We will continue to perform weaning trials. Will attempt extubation and observe airway closely. Yesterday she was much too agitated to attempt extubation but perhaps today will have more success. Change out Grewal to a wick device. Increasing ventricular ectopy will check electrolytes and replace as needed. No evidence of cardiac injury. 03/09: Remains stable no acute events overnight. Required Cardene which is currently weaned off. Patient noted to have swelling of the tongue and scleral edema, no cuff leak. Day 7 on the vent may need tracheostomy 03/10: Remains intubated sedated with Precedex 0.7 mcg/kg/h. Cardene restart for adequate blood pressure control. Slightly more awake today intermittently follows on the left side. Tongue and left eye swelling improved persistent right eye scleral edema 03/11: Patient was extubated yesterday. Appears to be protecting airway. Intermittently opens eyes, follows commands left upper and lower extremity and somewhat to right lower extremity. Withdraws right upper. Remains on Cardene at 5 mg/hr. I will increase Norvasc to 10 mg daily, increase hydralazine to 100 mg every 8 hours, continue Coreg 6.25 twice daily 03/12: Remains critical but slowly improving. Protecting airway. Attempts to mouth some words. WBC count noted to be elevated but patient is receiving Decadron for tongue swelling. I will discontinue Decadron and Benadryl today. Chest x-ray shows atelectasis Objective Vital Signs / I&O: Vital Signs 03/11/18 10:00 03/11/18 12:00 03/11/18 14:00 Temperature 97.6 F Pulse Rate 59 L 56 L 57 L Respiratory Rate 24 Blood Pressure 132/78 Pulse Oximetry 100 03/11/18 16:00 03/11/18 18:00 03/11/18 20:00 Temperature 97.9 F 97.7 F Pulse Rate 60 69 58 L Respiratory Rate 25 H 20 Blood Pressure 142/86 H 123/69 Pulse Oximetry 100 98 03/11/18 21:23 03/11/18 22:00 03/12/18 00:00 Temperature 97.9 F Pulse Rate 50 L 48 L Respiratory Rate 19 Blood Pressure 121/71 Pulse Oximetry 97 98 03/12/18 02:00 03/12/18 04:00 03/12/18 06:00 Temperature 97.6 F Pulse Rate 46 L 46 L 52 L Respiratory Rate 18 Blood Pressure 141/81 H Pulse Oximetry 98 Intake & Output 03/11/18 03/12/18 03/12/18 18:59 06:59 18:59 Intake Total 1716 / 1716 478 / 478 Output Total 400 / 400 150 / 150 Balance 1316 / 1316 328 / 328 Weight 75.5 kg Intake: IV 1500 / 1500 Cardene Inj 25 MG In NS Inj 240 500 / 500 ML @ 5 MG/HR 50 mls/hr IV.CONT TITRATE PRN Rx#:[id number] Tube Feeding 66 / 66 478 / 478 Tube Irrigant 150 / 150 Output: Urine Amount (Catheter) 400 / 400 150 / 150 Purewick 400 / 400 150 / 150 Other: # Voids 2 # Incontinent Voids 2 Date of Last Bowel Movement 03/10/18 03/11/18 # Bowel Movements 1 Result Diagrams: 03/12/18 04:00 03/12/18 04:00 Objective Remarks: GEN: 57-year-old -[place] female who is lying in bed not in any acute distress HEENT: Atraumatic normocephalic. Pupils are 2 mm reactive. Right eye scleral edema. NECK: Supple. No JVD. No stridor LUNGS: Air entry equal bilaterally no wheezes or crackles. Protecting airway at this time HEART: S1 and S2 normal, no murmur. Blood pressure adequately controlled ABDOMEN: Soft. Nontender no organomegaly EXTREMITIES: No pedal edema. Warm and well-perfused. NEUROLOGIC: Eyes are spontaneously open today, follows commands left upper and lower extremity and intermittently on right lower extremity. Withdraws right upper. 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 Status: Acute (2) Hypertensive emergency Code(s): I16.1 - Hypertensive emergency Status: Acute (3) Acute respiratory failure Code(s): J96.00 - Acute respiratory failure, unspecified whether with hypoxia or hypercapnia Status: Inactive (4) Hypokalemia Code(s): E87.6 - Hypokalemia Status: Acute (5) Elevated CPK Code(s): R74.8 - Abnormal levels of other serum enzymes Status: Acute - Assessment and Plan Plan: NEURO: Acute pontine hemorrhage Acute encephalopathy Right hemiplegia with aphasia -Most likely hypertensive hemorrhage -Remains off all sedation -Target systolic blood pressure less than 120-150 -Target sodium 145-150 -CTA of the head and neck essentially negative -Repeat head CT March 06 without change in the pontine bleed size, no hydrocephalus. RESP/ENT: Respiratory failure-extubated 03/10/2018 -Tolerating extubation last 48 hours, appears to be protecting airway, if she fails needs tracheostomy -DuoNeb every 6 hours scheduled and as needed -EzPAP every 6 hours with breathing treatments -Discontinue Decadron and Benadryl which was started for tongue swelling CV: Hypertensive emergency -Cardene infusion to keep systolic blood pressure less than 120-150 -Use as needed labetalol for additional control. Scheduled Coreg 6.25 mg twice daily. -Norvasc to 10 mg daily, hydralazine to 100 mg p.o. every 8 hours -IV Lasix 40 mg x1, repeat dose today. GI: -IV famotidine -Tube feeds with Jevity-failed swallow eval -Bowel regimen : Elevated CPK Acute kidney insufficiency-resolved -Monitor renal function closely. Grewal catheter for accurate intake output ID: -Monitor closely for infection HEME: -Monitor CBC, coags ENDO: Hypokalemia Hyperglycemia -Electrolyte replacement per protocol -Sliding scale insulin, if needed PROPH: -Bilateral lower extremity SCDs/ROBY. IV famotidine for GI prophylaxis -Chemical DVT prophylaxis is contraindicated LINES: -Utilize peripheral IVs, central line if needed Critically ill but slowly improving from pontine hemorrhage. Tolerating extubation at this time. However if she fails will need tracheostomy Level 3 Code Status: Full
--- NOTE | 2018-03-12 21:49 | P.PNNS ---
Subjective Interval history: Extubated 03/10 -- doing well, following intermittent commands Physical Exam Vital signs: Vital Signs 03/11/18 22:00 03/12/18 00:00 03/12/18 02:00 Temperature 97.9 F Pulse Rate 50 L 48 L 46 L Respiratory Rate 19 Blood Pressure 121/71 Pulse Oximetry 98 03/12/18 04:00 03/12/18 06:00 03/12/18 08:00 Temperature 97.6 F 97.8 F Pulse Rate 46 L 52 L 62 Respiratory Rate 18 25 H Blood Pressure 141/81 H 131/79 Pulse Oximetry 98 98 03/12/18 10:00 03/12/18 12:00 03/12/18 12:04 Temperature 97.8 F Pulse Rate 52 L 56 L 100 H Respiratory Rate 19 20 Blood Pressure 131/82 Pulse Oximetry 98 03/12/18 14:00 03/12/18 16:00 03/12/18 17:08 Temperature 98.5 F Pulse Rate 56 L 52 L 50 L Respiratory Rate 21 18 Blood Pressure 149/85 H Pulse Oximetry 98 03/12/18 18:00 03/12/18 20:14 Temperature Pulse Rate 54 L 52 L Respiratory Rate 16 Blood Pressure Pulse Oximetry 97 Intake & Output 03/12/18 03/12/18 03/13/18 06:59 18:59 06:59 Intake Total 478 / 478 720 / 720 Output Total 150 / 150 1100 / 1100 Balance 328 / 328 -380 / -380 Weight 75.5 kg Intake: Tube Feeding 478 / 478 600 / 600 Tube Irrigant 120 / 120 Output: Urine Amount (Catheter) 150 / 150 1100 / 1100 Purewick 150 / 150 1100 / 1100 Other: # Voids 2 # Incontinent Voids 2 1 Date of Last Bowel Movement 03/11/18 03/12/18 # Bowel Movements 1 1 Narrative: Opens eyes to voice Mumbles Intermittently follows commands left upper extremity (thumbs up) Reliably localizes left upper extremity Intermittently follows commands bilateral lower extremities, left greater than right (wiggles toes) Reliably withdraws bilateral lower extremities, left greater than right Weak withdrawal right upper extremity - Urinary Catheter Management Indwelling Urethral Catheter Cath placed during this visit: yes, but has since been removed by the nurse Reason for continuing: Continue criteria not met Insertion date: 03/03/18 Insertion time: 09:02 Removal date: 03/08/18 Removal time: 08:05 2000 Cath placed during this visit: yes, but has since been removed by the nurse Reason for continuing: Continue criteria not met Removal date: 03/08/18 Removal time: 08:15 Purewick Cath placed during this visit: no Assessment and Plan - Assessment (1) 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 Sanchez is a 57 y/o female who had a pontine intracerebral hemorrhage. Repeat CT head on 03/05 was stable as compared to presenting scan. No evidence of hydrocephalus with a patent 4th ventricular system. Plan: Continue to monitor and treat blood pressure with jail goal of normotension. Continue with neuro checks. Extubated 03/10/18, tolerating x2d PT/OT/Speech
[2018-03-13] MEDS: Insulin NovoLIN Regular Correctional Sugar Inj SQ SCH ×4 (00:47→17:50)
--- NOTE | 2018-03-13 06:45 | P.PNCC ---
Subjective Subjective Remarks/Hospital Course: Patient is a 57-year-old -[place] female who presented to the emergency department today with right upper and lower extremity weakness and slurred speech. Emergency department had difficulty getting detailed history due to impaired speech and acute onset of symptoms. She was unable to tell them when the symptoms started. 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 Dr. Samuel was consulted, he recommended targeting systolic blood pressure 120-130. Patient came in with systolic blood pressure varying from 170-180. She was started on Cardene infusion and critical care medicine was consulted. Patient was almost flaccid on the right side. While in the emergency department patient vomited twice and there was increasing aphasia. Patient was intubated by ER physician for airway protection I evaluated the patient in the emergency department. Currently she is sedated with propofol on the ventilator. Systolic blood pressure 140-150. I recommended increasing Cardene and increasing propofol. I discussed with Dr. Samuel again. We will rescan the patient with a CT brain prior to ICU transfer to rule out increasing hemorrhage or in any obstruction to the fourth ventricle SUBJ 03/04/18: Patient remains intubated sedated with propofol. On Cardene infusion for blood pressure control. Neurosurgery recommends continued medical management with aggressive blood pressure control target 120-160. Repeat CT head yesterday slight increase in the blood, fourth ventricle remain patent. Will repeat CT scan 03/05/18 03/05/18: CT of the head shows stable pontine hemorrhage. Patient currently is heavily sedated. We will start sedation vacation attempt spontaneous breathing trials. 03/06: CT scan without hydrocephalus. Areas of bleed unchanged but large. Brief attempts at spontaneous ventilation has not been successful today. She does continue to open her eyes and track to a voice. 03/07: She gets pretty agitated when sedation is low. Performs well on spontaneous breathing trials. The bleed appears stable at this time without change. We will attempt extubation and find out if she can protect her airway. 03/08: We will continue to perform weaning trials. Will attempt extubation and observe airway closely. Yesterday she was much too agitated to attempt extubation but perhaps today will have more success. Change out Grewal to a wick device. Increasing ventricular ectopy will check electrolytes and replace as needed. No evidence of cardiac injury. 03/09: Remains stable no acute events overnight. Required Cardene which is currently weaned off. Patient noted to have swelling of the tongue and scleral edema, no cuff leak. Day 7 on the vent may need tracheostomy 03/10: Remains intubated sedated with Precedex 0.7 mcg/kg/h. Cardene restart for adequate blood pressure control. Slightly more awake today intermittently follows on the left side. Tongue and left eye swelling improved persistent right eye scleral edema 03/11: Patient was extubated yesterday. Appears to be protecting airway. Intermittently opens eyes, follows commands left upper and lower extremity and somewhat to right lower extremity. Withdraws right upper. Remains on Cardene at 5 mg/hr. I will increase Norvasc to 10 mg daily, increase hydralazine to 100 mg every 8 hours, continue Coreg 6.25 twice daily 03/12: Remains critical but slowly improving. Protecting airway. Attempts to mouth some words. WBC count noted to be elevated but patient is receiving Decadron for tongue swelling. I will discontinue Decadron and Benadryl today. Chest x-ray shows atelectasis 03/13: Persistent moderate hypertension despite 4 drug therapy. Tolerating extubation for 2 days now. Large gastric residuals are worrisome in the context of her swallowing problems. Will add metoclopramide to improve gastric emptying and hopefully avoid aspiration problems. Mild elevation in white blood cell count with light infiltrate on chest x-ray is concerning. Remains afebrile. Objective Vital Signs / I&O: Vital Signs 03/12/18 08:00 03/12/18 10:00 03/12/18 12:00 Temperature 97.8 F 97.8 F Pulse Rate 62 52 L 56 L Respiratory Rate 25 H 19 Blood Pressure 131/79 131/82 Pulse Oximetry 98 98 03/12/18 12:04 03/12/18 14:00 03/12/18 16:00 Temperature 98.5 F Pulse Rate 100 H 56 L 52 L Respiratory Rate 20 21 Blood Pressure 149/85 H Pulse Oximetry 98 03/12/18 17:08 03/12/18 18:00 03/12/18 20:00 Temperature 97.8 F Pulse Rate 50 L 54 L 54 L Respiratory Rate 18 22 Blood Pressure 150/86 H Pulse Oximetry 98 03/12/18 20:14 03/12/18 22:00 03/13/18 00:00 Temperature 97.8 F Pulse Rate 52 L 50 L 86 Respiratory Rate 16 18 Blood Pressure 148/86 H Pulse Oximetry 97 98 03/13/18 02:00 03/13/18 04:00 03/13/18 04:09 Temperature 97.8 F Pulse Rate 52 L 50 L 47 L Respiratory Rate 16 20 Blood Pressure 166/94 H Pulse Oximetry 98 03/13/18 06:00 Temperature Pulse Rate 47 L Respiratory Rate Blood Pressure Pulse Oximetry Intake & Output 03/12/18 03/12/18 03/13/18 06:59 18:59 06:59 Intake Total 478 / 478 720 / 720 520 / 520 Output Total 150 / 150 1100 / 1100 600 / 600 Balance 328 / 328 -380 / -380 -80 / -80 Weight 75.5 kg 72.9 kg Intake: Tube Feeding 478 / 478 600 / 600 520 / 520 Tube Irrigant 120 / 120 Output: Urine Amount (Catheter) 150 / 150 1100 / 1100 600 / 600 Purewick 150 / 150 1100 / 1100 600 / 600 Other: # Voids 2 # Incontinent Voids 2 1 Date of Last Bowel Movement 03/11/18 03/12/18 03/12/18 # Bowel Movements 1 1 Result Diagrams: 03/12/18 04:00 03/12/18 04:00 Objective Remarks: GEN: 57-year-old -[place]iqu[place] female, calm. HEENT: Atraumatic normocephalic. Pupils are 2 mm reactive. Right eye scleral edema resolving. NECK: Supple. No JVD. Airway widely patent and no stridor LUNGS: Air entry equal bilaterally no wheezes or crackles. Protecting airway. HEART: S1 and S2 normal, no murmur. No JVD. ABDOMEN: Soft. Nondistended, no guarding, bowel sounds present. EXTREMITIES: No pedal edema. Warm and well-perfused. NEUROLOGIC: Eyes are spontaneously open today, follows commands left upper and lower extremity and intermittently on right lower extremity. Withdraws right upper. Attempts to mouth some words. 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 Status: Acute (2) Hypertensive emergency Code(s): I16.1 - Hypertensive emergency Status: Acute (3) Acute respiratory failure Code(s): J96.00 - Acute respiratory failure, unspecified whether with hypoxia or hypercapnia Status: Inactive (4) Hypokalemia Code(s): E87.6 - Hypokalemia Status: Acute (5) Elevated CPK Code(s): R74.8 - Abnormal levels of other serum enzymes Status: Acute - Assessment and Plan Plan: NEURO: Acute pontine hemorrhage Acute encephalopathy Right hemiplegia with aphasia -Most likely hypertensive hemorrhage -Remains off all sedation -Target systolic blood pressure less than 120-150 -Target sodium 145-150 -CTA of the head and neck essentially negative -Repeat head CT March 06 without change in the pontine bleed size, no hydrocephalus. RESP/ENT: Respiratory failure-extubated 03/10/2018 -Tolerating extubation last 48 hours, appears to be protecting airway, if she fails needs tracheostomy -DuoNeb every 6 hours scheduled and as needed -EzPAP every 6 hours with breathing treatments -Discontinue Decadron and Benadryl which was started for tongue swelling -More alert after Benadryl was stopped. CV: Hypertensive emergency -Cardene infusion to keep systolic blood pressure less than 120-150 -Use as needed labetalol for additional control. Scheduled Coreg 6.25 mg twice daily. -Norvasc to 10 mg daily, hydralazine to 100 mg p.o. every 8 hours -IV Lasix 40 mg x1, repeat dose today. -Add Cardura today and add intravenous KOBE inhibitor as needed GI: -IV famotidine -Tube feeds with Jevity-failed swallow eval -Bowel regimen -Add metoclopramide for problems with excessive gastric residual : Elevated CPK Acute kidney insufficiency-resolved -Monitor renal function closely. Grewal catheter for accurate intake output ID: -Monitor closely for infection HEME: -Monitor CBC, coags ENDO: Hypokalemia Hyperglycemia -Electrolyte replacement per protocol -Sliding scale insulin, if needed PROPH: -Bilateral lower extremity SCDs/ROBY. IV famotidine for GI prophylaxis -Chemical DVT prophylaxis is contraindicated LINES: -Utilize peripheral IVs, central line if needed Overall impression: Acceptable gas exchange and airway protection. Swallowing difficulties are problematic and increases the likelihood of aspiration. She has required such large doses of multiple antihypertensives that I am concerned about a possible problem with postural hypotension; will watch closely.
[2018-03-13] MEDS: Metoclopramide Inj 10 MG in Sodium Chlor 0.9% Inj 50 ML IV.SIG SCH ×3 (06:46→22:31)
[2018-03-13] MEDS: Senna/Docusate Sodium 8.6/50 MG Tablet PO SCH ×2 (08:45→21:00)
[2018-03-13] MEDS: amLODIPine 10 MG Tablet PO SCH (08:45)
[2018-03-13] MEDS: Famotidine PF Inj 20 MG/2 ML Vial IV.PUSH SCH ×2 (08:45→20:59)
--- NOTE | 2018-03-13 12:45 | P.PNNS ---
Subjective Interval history: Improving-- conversing with mother and coworkers Physical Exam Vital signs: Vital Signs 03/12/18 14:00 03/12/18 16:00 03/12/18 17:08 Temperature 98.5 F Pulse Rate 56 L 52 L 50 L Respiratory Rate 21 18 Blood Pressure 149/85 H Pulse Oximetry 98 03/12/18 18:00 03/12/18 20:00 03/12/18 20:14 Temperature 97.8 F Pulse Rate 54 L 54 L 52 L Respiratory Rate 22 16 Blood Pressure 150/86 H Pulse Oximetry 98 97 03/12/18 22:00 03/13/18 00:00 03/13/18 02:00 Temperature 97.8 F Pulse Rate 50 L 86 52 L Respiratory Rate 18 Blood Pressure 148/86 H Pulse Oximetry 98 03/13/18 04:00 03/13/18 04:09 03/13/18 06:00 Temperature 97.8 F Pulse Rate 50 L 47 L 47 L Respiratory Rate 16 20 Blood Pressure 166/94 H Pulse Oximetry 98 03/13/18 10:07 Temperature Pulse Rate 50 L Respiratory Rate 18 Blood Pressure Pulse Oximetry 96 Intake & Output 03/12/18 03/13/18 03/13/18 18:59 06:59 18:59 Intake Total 720 / 720 520 / 520 52 / 52 Output Total 1100 / 1100 600 / 600 Balance -380 / -380 -80 / -80 52 / 52 Weight 72.9 kg Intake: IV 52 / 52 Reglan Inj 10 MG In NS Inj 50 52 / 52 ML @ 104 mls/hr IV.SIG Q8H [facility] Rx#:[id number] Tube Feeding 600 / 600 520 / 520 Tube Irrigant 120 / 120 Output: Urine Amount (Catheter) 1100 / 1100 600 / 600 Purewick 1100 / 1100 600 / 600 Other: # Incontinent Voids 1 Date of Last Bowel Movement 03/12/18 03/12/18 # Bowel Movements 1 Narrative: Opens eyes to voice Mumbles Consistently follows commands left upper extremity (thumbs up) and bilateral lower extremities (wiggles toes) slower on right, and right upper just trace of voluntary movement today - Urinary Catheter Management Indwelling Urethral Catheter Cath placed during this visit: yes, but has since been removed by the nurse Reason for continuing: Continue criteria not met Insertion date: 03/03/18 Insertion time: 09:02 Removal date: 03/08/18 Removal time: 08:05 2000 Cath placed during this visit: yes, but has since been removed by the nurse Reason for continuing: Continue criteria not met Removal date: 03/08/18 Removal time: 08:15 Purewick Cath placed during this visit: no Assessment and Plan - Assessment (1) 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 Sanchez is a 57 y/o female who had a pontine intracerebral hemorrhage. Repeat CT head on 03/05 was stable as compared to presenting scan. No evidence of hydrocephalus with a patent 4th ventricular system. Plan: Continue to monitor and treat blood pressure with terminal operations manager goal of normotension. Continue with neuro checks. Extubated 03/10/18, tolerating Continue PT/OT/Speech Patient's mother and patient herself confirms that she was on thyroid medication , but nobody knows the dose and patient lived alone-- relayed to primary team
[2018-03-13] MEDS: Carvedilol 6.25 MG Tablet PO SCH ×2 (12:57→21:00)
[2018-03-13] MEDS: Doxazosin 1 MG Tablet PO SCH (13:25)
[2018-03-14] MEDS: Insulin NovoLIN Regular Correctional Sugar Inj SQ SCH ×4 (00:45→19:19)
[2018-03-14 05:30] LABS: Baso % (Auto) 0.2 % (0.0-2.0); Eos # (Auto) 0.1 th/mm3 (0.0-0.4); Eos % (Auto) 1.2 % (0.0-4.0); Hematocrit 35.1 % (35.0-46.0); Hemoglobin 11.8 gm/dL (11.6-15.3); Lymph # (Auto) 1.4 th/mm3 (1.0-4.8); Lymph % (Auto) 13.8 % (9.0-44.0); Mean Corpuscular HGB Conc 33.8 % (32.0-36.0); Mean Corpuscular Hemoglobin 33.1 pg (27.0-34.0); Mean Platelet Volume 11.7 fL (7.0-11.0); Mono # (Auto) 0.6 th/mm3 (0.0-0.9); Mono % (Auto) 5.5 % (0.0-8.0); Neut # (Auto) 8.1 th/mm3 (1.8-7.7); Neut % (Auto) 79.3 % (16.0-70.0); Platelet Count 132 th/mm3 (150-450); Red Blood Count 3.58 mil/mm3 (4.00-5.30); Red Cell Distribution Width 15.6 % (11.6-17.2); White Blood Count 10.2 th/mm3 (4.0-11.0)
[2018-03-14 05:47] LABS: Calcium 9.4 mg/dL (8.5-10.1); Carbon Dioxide 26.6 meq/L (21.0-32.0); Potassium 3.7 meq/L (3.5-5.1)
[2018-03-14 05:57] LABS: T4 (Thyroxine) 0.6 mcg/dL (4.8-13.9); Thyroid Stimulating Hormone 33.2 uIU/mL (0.358-3.740)
[2018-03-14] MEDS: Metoclopramide Inj 10 MG in Sodium Chlor 0.9% Inj 50 ML IV.SIG SCH ×3 (06:10→22:17)
[2018-03-14] MEDS: Doxazosin 1 MG Tablet PO SCH (10:18)
[2018-03-14] MEDS: Senna/Docusate Sodium 8.6/50 MG Tablet PO SCH ×2 (10:18→21:17)
[2018-03-14] MEDS: Carvedilol 6.25 MG Tablet PO SCH (10:18)
[2018-03-14] MEDS: Famotidine PF Inj 20 MG/2 ML Vial IV.PUSH SCH ×2 (10:18→21:16)
[2018-03-14] MEDS: amLODIPine 10 MG Tablet PO SCH (10:18)
[2018-03-14] MEDS ORDERED: Levothyroxine 150 MCG Tablet PO ONE (10:30)
--- NOTE | 2018-03-14 10:42 | P.PNCC ---
Subjective Subjective Remarks/Hospital Course: Patient is a 57-year-old -Citizen Of [place] female who presented to the emergency department today with right upper and lower extremity weakness and slurred speech. Emergency department had difficulty getting detailed history due to impaired speech and acute onset of symptoms. She was unable to tell them when the symptoms started. 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 Dr. Samuel was consulted, he recommended targeting systolic blood pressure 120-130. Patient came in with systolic blood pressure varying from 170-180. She was started on Cardene infusion and critical care medicine was consulted. Patient was almost flaccid on the right side. While in the emergency department patient vomited twice and there was increasing aphasia. Patient was intubated by ER physician for airway protection I evaluated the patient in the emergency department. Currently she is sedated with propofol on the ventilator. Systolic blood pressure 140-150. I recommended increasing Cardene and increasing propofol. I discussed with Dr. Samuel again. We will rescan the patient with a CT brain prior to ICU transfer to rule out increasing hemorrhage or in any obstruction to the fourth ventricle SUBJ 03/04/18: Patient remains intubated sedated with propofol. On Cardene infusion for blood pressure control. Neurosurgery recommends continued medical management with aggressive blood pressure control target 120-160. Repeat CT head yesterday slight increase in the blood, fourth ventricle remain patent. Will repeat CT scan 03/05/18 03/05/18: CT of the head shows stable pontine hemorrhage. Patient currently is heavily sedated. We will start sedation vacation attempt spontaneous breathing trials. 03/06: CT scan without hydrocephalus. Areas of bleed unchanged but large. Brief attempts at spontaneous ventilation has not been successful today. She does continue to open her eyes and track to a voice. 03/07: She gets pretty agitated when sedation is low. Performs well on spontaneous breathing trials. The bleed appears stable at this time without change. We will attempt extubation and find out if she can protect her airway. 03/08: We will continue to perform weaning trials. Will attempt extubation and observe airway closely. Yesterday she was much too agitated to attempt extubation but perhaps today will have more success. Change out Grewal to a wick device. Increasing ventricular ectopy will check electrolytes and replace as needed. No evidence of cardiac injury. 03/09: Remains stable no acute events overnight. Required Cardene which is currently weaned off. Patient noted to have swelling of the tongue and scleral edema, no cuff leak. Day 7 on the vent may need tracheostomy 03/10: Remains intubated sedated with Precedex 0.7 mcg/kg/h. Cardene restart for adequate blood pressure control. Slightly more awake today intermittently follows on the left side. Tongue and left eye swelling improved persistent right eye scleral edema 03/11: Patient was extubated yesterday. Appears to be protecting airway. Intermittently opens eyes, follows commands left upper and lower extremity and somewhat to right lower extremity. Withdraws right upper. Remains on Cardene at 5 mg/hr. I will increase Norvasc to 10 mg daily, increase hydralazine to 100 mg every 8 hours, continue Coreg 6.25 twice daily 03/12: Remains critical but slowly improving. Protecting airway. Attempts to mouth some words. WBC count noted to be elevated but patient is receiving Decadron for tongue swelling. I will discontinue Decadron and Benadryl today. Chest x-ray shows atelectasis 03/13: Persistent moderate hypertension despite 4 drug therapy. Tolerating extubation for 2 days now. Large gastric residuals are worrisome in the context of her swallowing problems. Will add metoclopramide to improve gastric emptying and hopefully avoid aspiration problems. Mild elevation in white blood cell count with light infiltrate on chest x-ray is concerning. Remains afebrile. 03/14: Leukocytosis resolved. Afebrile. Protects airway well. Lethargic. TSH 33, T4 0.6, early hypothyroid. Will start with oral supplementation using levothyroxine today. Due to previous atrial and ventricular ectopy I will avoid intravenous thyroid replacement at this time. Objective Vital Signs / I&O: Vital Signs 03/13/18 12:00 03/13/18 14:00 03/13/18 16:00 Temperature 98.1 F 98.3 F Pulse Rate 58 L 78 59 L Respiratory Rate 20 23 Blood Pressure 141/83 H 134/81 Pulse Oximetry 94 L 94 L 03/13/18 16:52 03/13/18 18:00 03/13/18 20:00 Temperature 97.5 F L Pulse Rate 61 57 L 56 L Respiratory Rate 20 19 Blood Pressure 130/89 Pulse Oximetry 98 03/13/18 21:00 03/13/18 21:04 03/13/18 22:00 Temperature Pulse Rate 52 L 50 L Respiratory Rate 16 Blood Pressure Pulse Oximetry 100 03/14/18 00:00 03/14/18 02:00 03/14/18 04:00 Temperature 98.3 F 97.6 F Pulse Rate 56 L 54 L 56 L Respiratory Rate 18 15 Blood Pressure 145/77 H 138/78 Pulse Oximetry 100 97 03/14/18 04:14 03/14/18 06:00 Temperature Pulse Rate 55 L 54 L Respiratory Rate 18 Blood Pressure Pulse Oximetry Intake & Output 03/13/18 03/14/18 03/14/18 18:59 06:59 18:59 Intake Total 723 / 723 782 / 782 Output Total 400 / 400 900 / 900 Balance 323 / 323 -118 / -118 Weight 71.9 kg Intake: IV 104 / 104 104 / 104 Reglan Inj 10 MG In NS Inj 50 104 / 104 104 / 104 ML @ 104 mls/hr IV.SIG Q8H [facility] Rx#:[id number] Tube Feeding 499 / 499 678 / 678 Tube Irrigant 120 / 120 Output: Urine Amount (Catheter) 400 / 400 900 / 900 Purewick 400 / 400 900 / 900 Other: # Incontinent Voids 2 Date of Last Bowel Movement 03/13/18 03/13/18 # Bowel Movements 2 Result Diagrams: 03/14/18 04:24 03/14/18 04:24 Objective Remarks: GEN: 57-year-old -Citizen Of [place] female, calm. HEENT: Atraumatic normocephalic. Pupils are 2 mm reactive. Right eye scleral edema resolving. NECK: Supple. No JVD. Airway widely patent and no stridor LUNGS: Air entry equal bilaterally no wheezes or crackles. Protecting airway. HEART: S1 and S2 normal, no murmur. No JVD. ABDOMEN: Soft. Nondistended, no guarding, bowel sounds present. EXTREMITIES: No pedal edema. Warm and well-perfused. NEUROLOGIC: Eyes are spontaneously open today, follows commands left upper and lower extremity and intermittently on right lower extremity. 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 Status: Acute (2) Hypertensive emergency Code(s): I16.1 - Hypertensive emergency Status: Acute (3) Acute respiratory failure Code(s): J96.00 - Acute respiratory failure, unspecified whether with hypoxia or hypercapnia Status: Inactive (4) Hypokalemia Code(s): E87.6 - Hypokalemia Status: Acute (5) Elevated CPK Code(s): R74.8 - Abnormal levels of other serum enzymes Status: Acute (6) Hypothyroidism Code(s): E03.9 - Hypothyroidism, unspecified Status: Acute - Assessment and Plan Plan: NEURO: Acute pontine hemorrhage Acute encephalopathy Right hemiplegia with aphasia -Most likely hypertensive hemorrhage -Remains off all sedation -Target systolic blood pressure less than 120-150 -Target sodium 145-150 -CTA of the head and neck essentially negative -Repeat head CT March 06 without change in the pontine bleed size, no hydrocephalus. RESP/ENT: Respiratory failure-extubated 03/10/2018 -Tolerating extubation last 48 hours, appears to be protecting airway, if she fails needs tracheostomy -DuoNeb every 6 hours scheduled and as needed -EzPAP every 6 hours with breathing treatments -Discontinue Decadron and Benadryl which was started for tongue swelling -More alert after Benadryl was stopped. CV: Hypertensive emergency -Cardene infusion to keep systolic blood pressure less than 120-150 -Use as needed labetalol for additional control. Scheduled Coreg 6.25 mg twice daily. -Norvasc to 10 mg daily, hydralazine to 100 mg p.o. every 8 hours -IV Lasix 40 mg x1, repeat dose today. -Add Cardura 03/13 and add intravenous KOBE inhibitor as needed GI: -IV famotidine -Tube feeds with Jevity-failed swallow eval -Bowel regimen -Add metoclopramide for problems with excessive gastric residual : Elevated CPK Acute kidney insufficiency-resolved -Monitor renal function closely. Grewal catheter for accurate intake output ID: -Monitor closely for infection HEME: -Monitor CBC, coags ENDO: Hypokalemia Hyperglycemia Hypothyroidism (Clinical and Lab) -Electrolyte replacement per protocol -Sliding scale insulin, if needed -TSH 33, T4 0.6, start levothyroxine 03/14 PO. PROPH: -Bilateral lower extremity SCDs/ROBY. IV famotidine for GI prophylaxis -Chemical DVT prophylaxis is contraindicated -PTT therapeutic. LINES: -Utilize peripheral IVs, central line if needed Overall impression: Acceptable gas exchange and airway protection. Swallowing difficulties are problematic and increases the likelihood of aspiration. She has required such large doses of multiple antihypertensives that I am concerned about a possible problem with postural hypotension; will watch closely. A large part of her lethargy may be clinical hypothyroidism. She had a thyroidectomy over 10 years ago and is supposed to be on replacement therapy. Her labs would tend to suggest she has not been taking her replacement therapy. (6) Hypothyroidism Qualifiers: Hypothyroidism type: acquired Qualified Code(s): E03.9 - Hypothyroidism, unspecified
--- NOTE | 2018-03-14 15:36 | P.PNNS ---
Subjective Interval history: stable Physical Exam Vital signs: Vital Signs 03/13/18 16:00 03/13/18 16:52 03/13/18 18:00 Temperature 98.3 F Pulse Rate 59 L 61 57 L Respiratory Rate 23 20 Blood Pressure 134/81 Pulse Oximetry 94 L 03/13/18 20:00 03/13/18 21:00 03/13/18 21:04 Temperature 97.5 F L Pulse Rate 56 L 52 L Respiratory Rate 19 16 Blood Pressure 130/89 Pulse Oximetry 98 100 03/13/18 22:00 03/14/18 00:00 03/14/18 02:00 Temperature 98.3 F Pulse Rate 50 L 56 L 54 L Respiratory Rate 18 Blood Pressure 145/77 H Pulse Oximetry 100 03/14/18 04:00 03/14/18 04:14 03/14/18 06:00 Temperature 97.6 F Pulse Rate 56 L 55 L 54 L Respiratory Rate 15 18 Blood Pressure 138/78 Pulse Oximetry 97 03/14/18 10:55 Temperature Pulse Rate 63 Respiratory Rate 17 Blood Pressure Pulse Oximetry 98 Intake & Output 03/13/18 03/14/18 03/14/18 18:59 06:59 18:59 Intake Total 723 / 723 782 / 782 Output Total 400 / 400 900 / 900 Balance 323 / 323 -118 / -118 Weight 71.9 kg Intake: IV 104 / 104 104 / 104 Reglan Inj 10 MG In NS Inj 50 104 / 104 104 / 104 ML @ 104 mls/hr IV.SIG Q8H [facility] Rx#:[id number] Tube Feeding 499 / 499 678 / 678 Tube Irrigant 120 / 120 Output: Urine Amount (Catheter) 400 / 400 900 / 900 Purewick 400 / 400 900 / 900 Other: # Incontinent Voids 2 Date of Last Bowel Movement 03/13/18 03/13/18 # Bowel Movements 2 Narrative: Bright Opens eyes to voice hypophonic voice does not cooperate with full EOM testing but appears to have B/l CN6 mouths words follows commands in the left upper and b/l lowers 5/5 strength in the left 4/5 on the right - Urinary Catheter Management Indwelling Urethral Catheter Cath placed during this visit: yes, but has since been removed by the nurse Reason for continuing: Continue criteria not met Insertion date: 08/07/18 Insertion time: 09:02 Removal date: 03/08/18 Removal time: 08:05 2000 Cath placed during this visit: yes, but has since been removed by the nurse Reason for continuing: Continue criteria not met Removal date: 03/08/18 Removal time: 08:15 Purewick Cath placed during this visit: no Reason for continuing: Not indwelling catheter Assessment and Plan - Assessment (1) 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 Sanchez is a 57 y/o female who had a pontine intracerebral hemorrhage. Repeat CT head on 03/05 was stable as compared to presenting scan. No evidence of hydrocephalus with a patent 4th ventricular system. Plan: -no neurosurgical intervention indicated -management per primary service
[2018-03-15 05:47] LABS: Calcium 9.3 mg/dL (8.5-10.1); Carbon Dioxide 25.6 meq/L (21.0-32.0); Potassium 3.9 meq/L (3.5-5.1)
[2018-03-15] MEDS: Insulin NovoLIN Regular Correctional Sugar Inj SQ SCH ×5 (06:15→23:51)
[2018-03-15] MEDS: Levothyroxine 125 MCG Tablet PO SCH (06:19)
[2018-03-15] MEDS: Metoclopramide Inj 10 MG in Sodium Chlor 0.9% Inj 50 ML IV.SIG SCH ×3 (06:19→23:50)
[2018-03-15] MEDS: Famotidine PF Inj 20 MG/2 ML Vial IV.PUSH SCH ×2 (08:20→20:55)
[2018-03-15] MEDS: Senna/Docusate Sodium 8.6/50 MG Tablet PO SCH ×2 (08:21→20:55)
[2018-03-15] MEDS: amLODIPine 10 MG Tablet PO SCH (08:21)
[2018-03-15] MEDS: Doxazosin 1 MG Tablet PO SCH (08:21)
--- NOTE | 2018-03-15 10:18 | P.PNCC ---
Subjective Subjective Remarks/Hospital Course: Patient is a 57-year-old -[place] female who presented to the emergency department today with right upper and lower extremity weakness and slurred speech. Emergency department had difficulty getting detailed history due to impaired speech and acute onset of symptoms. She was unable to tell them when the symptoms started. 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 Dr. Samuel was consulted, he recommended targeting systolic blood pressure 120-130. Patient came in with systolic blood pressure varying from 170-180. She was started on Cardene infusion and critical care medicine was consulted. Patient was almost flaccid on the right side. While in the emergency department patient vomited twice and there was increasing aphasia. Patient was intubated by ER physician for airway protection I evaluated the patient in the emergency department. Currently she is sedated with propofol on the ventilator. Systolic blood pressure 140-150. I recommended increasing Cardene and increasing propofol. I discussed with Dr. Samuel again. We will rescan the patient with a CT brain prior to ICU transfer to rule out increasing hemorrhage or in any obstruction to the fourth ventricle SUBJ 03/04/18: Patient remains intubated sedated with propofol. On Cardene infusion for blood pressure control. Neurosurgery recommends continued medical management with aggressive blood pressure control target 120-160. Repeat CT head yesterday slight increase in the blood, fourth ventricle remain patent. Will repeat CT scan 03/05/18 03/05/18: CT of the head shows stable pontine hemorrhage. Patient currently is heavily sedated. We will start sedation vacation attempt spontaneous breathing trials. 03/06: CT scan without hydrocephalus. Areas of bleed unchanged but large. Brief attempts at spontaneous ventilation has not been successful today. She does continue to open her eyes and track to a voice. 03/07: She gets pretty agitated when sedation is low. Performs well on spontaneous breathing trials. The bleed appears stable at this time without change. We will attempt extubation and find out if she can protect her airway. 03/08: We will continue to perform weaning trials. Will attempt extubation and observe airway closely. Yesterday she was much too agitated to attempt extubation but perhaps today will have more success. Change out Grewal to a wick device. Increasing ventricular ectopy will check electrolytes and replace as needed. No evidence of cardiac injury. 03/09: Remains stable no acute events overnight. Required Cardene which is currently weaned off. Patient noted to have swelling of the tongue and scleral edema, no cuff leak. Day 7 on the vent may need tracheostomy 03/10: Remains intubated sedated with Precedex 0.7 mcg/kg/h. Cardene restart for adequate blood pressure control. Slightly more awake today intermittently follows on the left side. Tongue and left eye swelling improved persistent right eye scleral edema 03/11: Patient was extubated yesterday. Appears to be protecting airway. Intermittently opens eyes, follows commands left upper and lower extremity and somewhat to right lower extremity. Withdraws right upper. Remains on Cardene at 5 mg/hr. I will increase Norvasc to 10 mg daily, increase hydralazine to 100 mg every 8 hours, continue Coreg 6.25 twice daily 03/12: Remains critical but slowly improving. Protecting airway. Attempts to mouth some words. WBC count noted to be elevated but patient is receiving Decadron for tongue swelling. I will discontinue Decadron and Benadryl today. Chest x-ray shows atelectasis 03/13: Persistent moderate hypertension despite 4 drug therapy. Tolerating extubation for 2 days now. Large gastric residuals are worrisome in the context of her swallowing problems. Will add metoclopramide to improve gastric emptying and hopefully avoid aspiration problems. Mild elevation in white blood cell count with light infiltrate on chest x-ray is concerning. Remains afebrile. 03/14: Leukocytosis resolved. Afebrile. Protects airway well. Lethargic. TSH 33, T4 0.6, clearly hypothyroid. Will start with oral supplementation using levothyroxine today. Due to previous atrial and ventricular ectopy I will avoid intravenous thyroid replacement at this time. 03/15: Family has been reluctant to allow for tracheostomy which is highly recommended. The patient clearly cannot control her secretions and it will be tough to keep her from continually aspirating. Tube feedings with metoclopramide assistance will hopefully minimize reflux but her oral secretions remain problematic. Blood pressure is now adequately controlled. Thyroid replacement therapy in progress. Objective Vital Signs / I&O: Vital Signs 03/14/18 10:55 03/14/18 12:00 03/14/18 14:00 Temperature 98.3 F Pulse Rate 63 60 92 H Respiratory Rate 17 19 Blood Pressure 131/82 Pulse Oximetry 98 97 03/14/18 16:00 03/14/18 18:00 03/14/18 20:00 Temperature 98.3 F 97.5 F L Pulse Rate 64 92 H 62 Respiratory Rate 26 H 19 Blood Pressure 147/99 H 149/89 H Pulse Oximetry 96 98 03/14/18 20:33 03/14/18 22:00 03/15/18 00:00 Temperature 97.5 F L Pulse Rate 62 60 69 Respiratory Rate 16 19 Blood Pressure 127/71 Pulse Oximetry 98 96 03/15/18 02:00 03/15/18 03:21 03/15/18 04:00 Temperature 97.5 F L Pulse Rate 59 L 76 59 L Respiratory Rate 16 26 H Blood Pressure 131/76 Pulse Oximetry 96 03/15/18 06:00 03/15/18 08:00 03/15/18 09:00 Temperature Pulse Rate 64 60 71 Respiratory Rate 22 Blood Pressure Pulse Oximetry 03/15/18 09:52 03/15/18 10:00 Temperature Pulse Rate 72 Respiratory Rate Blood Pressure Pulse Oximetry 98 Intake & Output 03/14/18 03/15/18 03/15/18 18:59 06:59 18:59 Intake Total 904 / 904 Output Total 1400 / 1400 300 / 300 Balance -1400 / -1400 604 / 604 Weight 82.1 kg Intake: IV 104 / 104 Reglan Inj 10 MG In NS Inj 50 104 / 104 ML @ 104 mls/hr IV.SIG Q8H [facility] Rx#:[id number] Tube Feeding 600 / 600 Tube Irrigant 200 / 200 Output: Stool 0 / 0 Urine Amount (Catheter) 1400 / 1400 300 / 300 Purewick 1400 / 1400 300 / 300 Other: Date of Last Bowel Movement 03/13/18 03/13/18 03/13/18 # Bowel Movements 0 Result Diagrams: 03/14/18 04:24 03/15/18 04:44 Objective Remarks: GEN: 57-year-old -[place] female, calm. HEENT: Atraumatic normocephalic. Pupils are 2 mm reactive. NECK: Supple. No JVD. Airway widely patent but gurgling secretions persist in the upper airway. LUNGS: Air entry equal bilaterally no wheezes or crackles. HEART: S1 and S2 normal, no murmur. No JVD. ABDOMEN: Soft. Nondistended, no guarding, bowel sounds present. EXTREMITIES: No pedal edema. Warm and well-perfused. NEUROLOGIC: Eyes open spontaneously, she follows commands left upper and lower extremity and intermittently on right lower extremity. Speech is difficult to understand. 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 Status: Acute (2) Hypertensive emergency Code(s): I16.1 - Hypertensive emergency Status: Acute (3) Hypokalemia Code(s): E87.6 - Hypokalemia Status: Acute (4) Elevated CPK Code(s): R74.8 - Abnormal levels of other serum enzymes Status: Acute (5) Hypothyroidism Code(s): E03.9 - Hypothyroidism, unspecified Status: Acute - Assessment and Plan Plan: NEURO: Acute pontine hemorrhage Acute encephalopathy Right hemiplegia with aphasia -Most likely hypertensive hemorrhage -Remains off all sedation -Target systolic blood pressure less than 120-150 -Target sodium 145-150 -CTA of the head and neck essentially negative -Repeat head CT March 06 without change in the pontine bleed size, no hydrocephalus. RESP/ENT: Respiratory failure-extubated 03/10/2018 -Tolerating extubation last 48 hours, appears to be protecting airway, if she fails needs tracheostomy -DuoNeb every 6 hours scheduled and as needed -EzPAP every 6 hours with breathing treatments -Discontinue Decadron and Benadryl which was started for tongue swelling -More alert after Benadryl was stopped. -Will undoubtedly require tracheostomy for airway protection. CV: Hypertensive emergency -Cardene infusion to keep systolic blood pressure less than 120-150 -Use as needed labetalol for additional control. Scheduled Coreg 6.25 mg twice daily. -Norvasc to 10 mg daily, hydralazine to 100 mg p.o. every 8 hours -IV Lasix 40 mg x1, repeat dose today. -Add Cardura 03/13 and add intravenous KOBE inhibitor as needed GI: -IV famotidine -Tube feeds with Jevity-failed swallow eval -Bowel regimen -Added metoclopramide for problems with excessive gastric residual : Elevated CPK Acute kidney insufficiency-resolved -Monitor renal function closely. Grewal catheter for accurate intake output ID: -Monitor closely for infection HEME: -Monitor CBC, coags ENDO: Hypokalemia Hyperglycemia Hypothyroidism (Clinical and Lab) -Electrolyte replacement per protocol -Sliding scale insulin, if needed -TSH 33, T4 0.6, start levothyroxine 03/14 PO. PROPH: -Bilateral lower extremity SCDs/ROBY. IV famotidine for GI prophylaxis -Chemical DVT prophylaxis is contraindicated -PTT therapeutic. LINES: -Utilize peripheral IVs, central line if needed Overall impression: Acceptable gas exchange but marginal airway protection. Swallowing difficulties are problematic and increases the likelihood of aspiration. A large part of her lethargy may be clinical hypothyroidism. She had a thyroidectomy over 10 years ago and is supposed to be on replacement therapy. Her labs would tend to suggest she has not been taking her replacement therapy. (5) Hypothyroidism Qualifiers: Hypothyroidism type: acquired Qualified Code(s): E03.9 - Hypothyroidism, unspecified
[2018-03-16] MEDS: Insulin NovoLIN Regular Correctional Sugar Inj SQ SCH ×3 (06:00→19:27)
[2018-03-16] MEDS: Levothyroxine 125 MCG Tablet PO SCH (06:04)
[2018-03-16] MEDS: Metoclopramide Inj 10 MG in Sodium Chlor 0.9% Inj 50 ML IV.SIG SCH ×3 (06:04→23:30)
[2018-03-16 06:32] LABS: Calcium 9.4 mg/dL (8.5-10.1); Carbon Dioxide 24.6 meq/L (21.0-32.0)
--- NOTE | 2018-03-16 08:51 | P.PNCC ---
Subjective Subjective Remarks/Hospital Course: Patient is a 57-year-old -[place] female who presented to the emergency department today with right upper and lower extremity weakness and slurred speech. Emergency department had difficulty getting detailed history due to impaired speech and acute onset of symptoms. She was unable to tell them when the symptoms started. 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 Dr. Samuel was consulted, he recommended targeting systolic blood pressure 120-130. Patient came in with systolic blood pressure varying from 170-180. She was started on Cardene infusion and critical care medicine was consulted. Patient was almost flaccid on the right side. While in the emergency department patient vomited twice and there was increasing aphasia. Patient was intubated by ER physician for airway protection I evaluated the patient in the emergency department. Currently she is sedated with propofol on the ventilator. Systolic blood pressure 140-150. I recommended increasing Cardene and increasing propofol. I discussed with Dr. Samuel again. We will rescan the patient with a CT brain prior to ICU transfer to rule out increasing hemorrhage or in any obstruction to the fourth ventricle SUBJ 03/04/18: Patient remains intubated sedated with propofol. On Cardene infusion for blood pressure control. Neurosurgery recommends continued medical management with aggressive blood pressure control target 120-160. Repeat CT head yesterday slight increase in the blood, fourth ventricle remain patent. Will repeat CT scan 03/05/18 03/05/18: CT of the head shows stable pontine hemorrhage. Patient currently is heavily sedated. We will start sedation vacation attempt spontaneous breathing trials. 03/06: CT scan without hydrocephalus. Areas of bleed unchanged but large. Brief attempts at spontaneous ventilation has not been successful today. She does continue to open her eyes and track to a voice. 03/07: She gets pretty agitated when sedation is low. Performs well on spontaneous breathing trials. The bleed appears stable at this time without change. We will attempt extubation and find out if she can protect her airway. 03/08: We will continue to perform weaning trials. Will attempt extubation and observe airway closely. Yesterday she was much too agitated to attempt extubation but perhaps today will have more success. Change out Grewal to a wick device. Increasing ventricular ectopy will check electrolytes and replace as needed. No evidence of cardiac injury. 03/09: Remains stable no acute events overnight. Required Cardene which is currently weaned off. Patient noted to have swelling of the tongue and scleral edema, no cuff leak. Day 7 on the vent may need tracheostomy 03/10: Remains intubated sedated with Precedex 0.7 mcg/kg/h. Cardene restart for adequate blood pressure control. Slightly more awake today intermittently follows on the left side. Tongue and left eye swelling improved persistent right eye scleral edema 03/11: Patient was extubated yesterday. Appears to be protecting airway. Intermittently opens eyes, follows commands left upper and lower extremity and somewhat to right lower extremity. Withdraws right upper. Remains on Cardene at 5 mg/hr. I will increase Norvasc to 10 mg daily, increase hydralazine to 100 mg every 8 hours, continue Coreg 6.25 twice daily 03/12: Remains critical but slowly improving. Protecting airway. Attempts to mouth some words. WBC count noted to be elevated but patient is receiving Decadron for tongue swelling. I will discontinue Decadron and Benadryl today. Chest x-ray shows atelectasis 03/13: Persistent moderate hypertension despite 4 drug therapy. Tolerating extubation for 2 days now. Large gastric residuals are worrisome in the context of her swallowing problems. Will add metoclopramide to improve gastric emptying and hopefully avoid aspiration problems. Mild elevation in white blood cell count with light infiltrate on chest x-ray is concerning. Remains afebrile. 03/14: Leukocytosis resolved. Afebrile. Protects airway well. Lethargic. TSH 33, T4 0.6, clearly hypothyroid. Will start with oral supplementation using levothyroxine today. Due to previous atrial and ventricular ectopy I will avoid intravenous thyroid replacement at this time. 03/15: Family has been reluctant to allow for tracheostomy which is highly recommended. The patient clearly cannot control her secretions and it will be tough to keep her from continually aspirating. Tube feedings with metoclopramide assistance will hopefully minimize reflux but her oral secretions remain problematic. Blood pressure is now adequately controlled. Thyroid replacement therapy in progress. 03/16: Patient remains encephalopathic possibly worsened by hypothyroid state. Thyroid replacement has started. Patient's mother has agreed to PEG tube placement but is still considering tracheostomy. Objective Vital Signs / I&O: Vital Signs 03/15/18 09:00 03/15/18 09:52 03/15/18 10:00 Temperature Pulse Rate 71 72 Respiratory Rate 22 Blood Pressure Pulse Oximetry 98 03/15/18 12:00 03/15/18 14:00 03/15/18 16:00 Temperature 98.2 F 97.7 F Pulse Rate 86 62 76 Respiratory Rate 24 25 H Blood Pressure 151/85 H 132/76 Pulse Oximetry 96 96 03/15/18 16:10 03/15/18 18:00 03/15/18 19:18 Temperature Pulse Rate 62 67 78 Respiratory Rate 17 22 Blood Pressure Pulse Oximetry 97 03/15/18 20:00 03/15/18 22:00 03/16/18 00:00 Temperature 97.6 F 97.6 F Pulse Rate 69 74 67 Respiratory Rate 20 20 Blood Pressure 147/80 H 163/89 H Pulse Oximetry 96 96 03/16/18 02:00 03/16/18 04:00 03/16/18 04:01 Temperature 97.6 F Pulse Rate 64 78 74 Respiratory Rate 20 20 Blood Pressure 130/73 Pulse Oximetry 94 L 03/16/18 05:57 Temperature Pulse Rate 69 Respiratory Rate Blood Pressure Pulse Oximetry Intake & Output 03/15/18 03/16/18 03/16/18 18:59 06:59 18:59 Intake Total 861 / 861 726 / 726 Output Total 1100 / 1100 800 / 800 Balance -239 / -239 -74 / -74 Weight 71.5 kg Intake: IV 104 / 104 Reglan Inj 10 MG In NS Inj 50 104 / 104 ML @ 104 mls/hr IV.SIG Q8H [facility] Rx#:[id number] Tube Feeding 681 / 681 582 / 582 Tube Irrigant 180 / 180 40 / 40 Output: Stool 0 / 0 Urine Amount (Catheter) 1100 / 1100 800 / 800 Purewick 1100 / 1100 800 / 800 Other: Date of Last Bowel Movement 03/15/18 03/15/18 # Bowel Movements 1 1 # Incontinent Bowel Movements 1 Result Diagrams: 03/14/18 04:24 03/16/18 04:42 Objective Remarks: GEN: 57-year-old -[place] female, calm. HEENT: Atraumatic normocephalic. Pupils are 2 mm reactive. NECK: Supple. No JVD. Airway widely patent but gurgling secretions persist in the upper airway. LUNGS: Air entry equal bilaterally no wheezes or crackles. HEART: S1 and S2 normal, no murmur. No JVD. ABDOMEN: Soft. Nondistended, no guarding, bowel sounds present. EXTREMITIES: No pedal edema. Warm and well-perfused. NEUROLOGIC: Eyes open spontaneously, she follows commands left upper and lower extremity and intermittently on right lower extremity. Speech is difficult to understand. 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 Status: Acute (2) Hypertensive emergency Code(s): I16.1 - Hypertensive emergency Status: Acute (3) Hypokalemia Code(s): E87.6 - Hypokalemia Status: Acute (4) Elevated CPK Code(s): R74.8 - Abnormal levels of other serum enzymes Status: Acute (5) Hypothyroidism Code(s): E03.9 - Hypothyroidism, unspecified Status: Acute - Assessment and Plan Plan: NEURO: Acute pontine hemorrhage Acute encephalopathy Right hemiplegia with aphasia -Most likely hypertensive hemorrhage -Remains off all sedation -Target systolic blood pressure less than 120-150 -Target sodium 145-150 -CTA of the head and neck essentially negative -Repeat head CT March 06 without change in the pontine bleed size, no hydrocephalus. RESP/ENT: Respiratory failure-extubated 03/10/2018 -Tolerating extubation last 48 hours, appears to be protecting airway, if she fails needs tracheostomy -DuoNeb every 6 hours scheduled and as needed -EzPAP every 6 hours with breathing treatments -Discontinue Decadron and Benadryl which was started for tongue swelling -More alert after Benadryl was stopped. -Will undoubtedly require tracheostomy for airway protection. CV: Hypertensive emergency -Cardene infusion to keep systolic blood pressure less than 120-150 -Use as needed labetalol for additional control. Scheduled Coreg 6.25 mg twice daily. -Norvasc to 10 mg daily, hydralazine to 100 mg p.o. every 8 hours -IV Lasix 40 mg x1, repeat dose today. -Add Cardura 03/13 and add intravenous KOBE inhibitor as needed GI: -IV famotidine -Tube feeds with Jevity-failed swallow eval -Bowel regimen -Added metoclopramide for problems with excessive gastric residual : Elevated CPK Acute kidney insufficiency-resolved -Monitor renal function closely. Grewal catheter for accurate intake output ID: -Monitor closely for infection HEME: -Monitor CBC, coags ENDO: Hypokalemia Hyperglycemia Hypothyroidism (Clinical and Lab) -Electrolyte replacement per protocol -Sliding scale insulin, if needed -TSH 33, T4 0.6, start levothyroxine 03/14 PO. PROPH: -Bilateral lower extremity SCDs/ROBY. IV famotidine for GI prophylaxis -Chemical DVT prophylaxis is contraindicated -PTT therapeutic. LINES: -Utilize peripheral IVs, central line if needed Overall impression: Acceptable gas exchange but marginal airway protection. Swallowing difficulties are problematic and increases the likelihood of aspiration. A large part of her lethargy may be clinical hypothyroidism. She had a thyroidectomy over 10 years ago and was supposed to be on replacement therapy. Her labs would tend to suggest she has not been taking her replacement therapy. Mother has agreed to PEG tube placement. We will work on disposition to inpatient rehab. (5) Hypothyroidism Qualifiers: Hypothyroidism type: acquired Qualified Code(s): E03.9 - Hypothyroidism, unspecified
[2018-03-16] MEDS: Doxazosin 1 MG Tablet PO SCH (09:42)
[2018-03-16] MEDS: Famotidine PF Inj 20 MG/2 ML Vial IV.PUSH SCH ×2 (09:42→20:45)
[2018-03-16] MEDS: amLODIPine 10 MG Tablet PO SCH (09:43)
[2018-03-16] MEDS: Senna/Docusate Sodium 8.6/50 MG Tablet PO SCH ×2 (09:43→20:45)
--- NOTE | 2018-03-16 11:48 | P.CONGI ---
History of Present Illness Consult date: 03/16/18 Consult reason: PEG tube placement Chief complaint: Hemorrhagic stroke, acute hypoxic respiratory History of Present Illness: This is a 57-year-old female who was admitted on 03/03/2018 with weakness and slurred speech. 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 Patient initially was intubated and sedated but is now extubated and currently on oxygen at 2 L nasal cannula. During our exam patient was noted to have some snoring respiratory effort, but no acute shortness of breath. Gastroenterology has been consulted to assist with PEG tube placement. There is currently no family present but according to the record patient's mother has agreed to PEG tube placement. Currently patient is awake does respond with facial expressions to simple questions but a phasic. Currently patient has NG tube with Jevity 1.5 infusing at 50 cc an hour. Current hemoglobin is 11 0.8 and WBC count 10.2, PT/ INR 1.2. Most of the information gathered from patient was from the record. Speech therapy after extubation continue to recommend n.p.o. <Jesusita Lopez - Last Filed: 03/16/18 12:15> Review of Systems All other systems reviewed negative except as stated in HPI <Jesusita Lopez - Last Filed: 03/16/18 12:15> PMFSH - History History Provided By: Patient - Medical / Surgical Hx Neg / Unobtainable Medical Problems Denied: Unable to Obtain - Medical History Medical History: Medical History (Last Reviewed 03/16/18 @ 07:41 by Yari Durbin) No significant past medical history - Surgical History Surgical History: Surgical History (Last Reviewed 03/16/18 @ 07:41 by Yari Durbin) No history of previous surgery - Tobacco History Second Hand Smoke Exposure: No Smoking Status: Unknown if ever smoked - Alcohol History How Often Do You Have a Drink Containing Alcohol: Unable to Obtain - Substance Use History Substance History: No History of Abuse - Travel History Recent Travel in the [place] Within the Last 8 Weeks: No Recent Travel Out of the Country Within the Last 8 Weeks: No - Immunization History Tetanus Immunization: >5 Years Hx Influenza Vaccine This Season: Yes <Jesusita Lopez - Last Filed: 03/16/18 12:15> - Medical History Medical History: Medical History (Last Reviewed 03/16/18 @ 07:41 by Yari Durbin) No significant past medical history - Surgical History Surgical History: Surgical History (Last Reviewed 03/16/18 @ 07:41 by Yari Durbin) No history of previous surgery <Justin Clancy - Last Filed: 03/16/18 19:37> Medications and Allergies Active Medications: Active Medications Acetaminophen (Tylenol) 650 mg PO Q6H PRN PRN Reason: PAIN 1-10 AND/OR FEVER >101F Last Admin: 03/06/18 20:09 Dose: 650 mg Al Hydroxide/Mg Hydroxide (Milk Of Arianna Liq) 30 ml PO Q12H PRN PRN Reason: Mild Constipation Last Admin: 03/10/18 09:23 Dose: 30 ml Albuterol (Duoneb Neb (Prn)) 1 ampul NEB Q2HR NEB PRN PRN Reason: WHEEZING Last Admin: 03/06/18 03:40 Dose: 1 ampul Amlodipine Besylate (Norvasc) 10 mg PO DAILY [facility] Last Admin: 03/16/18 09:43 Dose: 10 mg Bisacodyl (Dulcolax Supp) 10 mg RECTAL DAILY PRN PRN Reason: SEVERE CONSITIPATION Carvedilol (Coreg) 3.125 mg PO BID [facility] Last Admin: 03/16/18 09:42 Dose: 3.125 mg Dextrose (D50w Vial) 50 ml IV.PUSH UNSCH PRN PRN Reason: PER HYPOGLYCEMIA PROTOCOL Last Admin: 03/07/18 00:31 Dose: 50 ml Doxazosin Mesylate (Cardura) 1 mg PO DAILY [facility] Last Admin: 03/16/18 09:42 Dose: 1 mg Enalaprilat (Vasotec Inj) 2.5 mg IV.PUSH Q6H PRN PRN Reason: SBP > 160 Last Admin: 03/13/18 06:46 Dose: 2.5 mg Famotidine (Pepcid Pf Inj) 10 mg IV.PUSH Q12HR [facility] Last Admin: 03/16/18 09:42 Dose: 10 mg Glucagon (Glucagon Inj) 1 mg OTHER PRN PRN PRN Reason: for Hypoglycemia Protocol Hydralazine HCl (Apresoline) 100 mg PO Q8H [facility] Last Admin: 03/16/18 09:42 Dose: 100 mg Hyoscyamine (Levsin Inj) 0.125 mg IV.PUSH Q6H PRN PRN Reason: INCREASED SECRETIONS Last Admin: 03/11/18 11:46 Dose: 0.125 mg Nicardipine HCl 25 mg/ Sodium (Chloride) 250 mls @ 50 mls/hr IV.CONT TITRATE PRN; Protocol PRN Reason: Per Protocol Last Titration: 03/11/18 22:30 Dose: 0 mg/hr, 0 mls/hr Magnesium Sulfate Inj 4 gm/ (Sodium Chloride) 100 mls @ 50 mls/hr IV.SIG UNSCH PRN PRN Reason: For Magnesium 0.9 - 1.1 mg/dL Magnesium Sulfate Inj 2 gm/ (Sodium Chloride) 100 mls @ 50 mls/hr IV.SIG UNSCH PRN PRN Reason: For Magnesium 1.2 - 1.6 mg/dL Potassium Chloride (Kcl 40 Meq Premix Inj) 40 meq in 100 mls @ 25 mls/hr IV.SIG Q2H PRN PRN Reason: For Potassium 2.8 - 3.2 mEq/L Last Infusion: 03/05/18 15:15 Dose: Infused Potassium Chloride (Kcl 20 Meq Premix Inj) 20 meq in 100 mls @ 50 mls/hr IV.SIG Q2H PRN PRN Reason: For Potassium 3.3 - 3.5 mEq/L Potassium Chloride (Kcl 20 Meq Premix Inj) 20 meq in 100 mls @ 50 mls/hr IV.SIG Q2H PRN PRN Reason: For Potassium 2.8 - 3.2 mEq/L Last Infusion: 03/09/18 01:06 Dose: Infused Potassium Phosphate 30 mmol/ (Sodium Chloride) 260 mls @ 42 mls/hr IV.SIG UNSCH PRN PRN Reason: SEE LABEL COMMENTS Last Infusion: 03/08/18 20:41 Dose: Infused Sodium Phosphate 30 mmol/ (Sodium Chloride) 260 mls @ 42 mls/hr IV.SIG UNSCH PRN PRN Reason: For Phosphorus < 2.5 mg/dL Potassium Chloride (Kcl 40 Meq Premix Inj) 40 meq in 100 mls @ 25 mls/hr IV.SIG UNSCH PRN PRN Reason: For Potassium 3.3 - 3.5 mEq/L Metoclopramide HCl 10 mg/ (Sodium Chloride) 52 mls @ 104 mls/hr IV.SIG Q8H [facility] ; Protocol Last Admin: 03/16/18 06:04 Dose: 104 mls/hr Insulin Human Regular (Novolin R Correctional Sugar Inj) 0 units SQ Q6HR [facility]; Protocol Last Admin: 03/16/18 06:00 Dose: Not Given Lactulose (Lactulose Liq) 30 ml PO DAILY PRN PRN Reason: SEVERE CONSITIPATION Last Admin: 03/10/18 05:53 Dose: 30 ml Levothyroxine Sodium (Synthroid) 125 mcg PO DAILY@0600 [facility] Last Admin: 03/16/18 06:04 Dose: 125 mcg Magnesium Oxide (Mag-Ox) 800 mg PO UNSCH PRN PRN Reason: For Magnesium 1.2 - 1.6 mg/dL Padimate O (Chapstick) 1 applicatio TOPICAL UNSCH PRN PRN Reason: CHAPPED LIPS Last Admin: 03/12/18 16:00 Dose: 1 applicatio Potassium Bicarb/Potassium Chloride (K-Lyte Cl Eff) 50 meq PO UNSCH PRN PRN Reason: For Potassium 3.3 - 3.5 mEq/L Last Admin: 03/09/18 08:51 Dose: 50 meq Potassium Phosphate (K-Phos Original) 2,000 mg PO Q4H PRN PRN Reason: Phosphorus Less Than 2.5 mg/dL Potassium Phosphate (K-Phos Original) 2,000 mg PO UNSCH PRN PRN Reason: SEE LABEL COMMENTS Senna/Docusate Sodium (Shona-Colace) 1 tab PO BID [facility] Last Admin: 03/16/18 09:43 Dose: Not Given Sennosides (Senokot) 17.2 mg PO Q12H PRN PRN Reason: Moderate Constipation Last Admin: 03/10/18 04:36 Dose: 17.2 mg Sodium Chloride (Ns Flush) 2 ml IV.FLUSH BID [facility] Last Admin: 03/15/18 20:56 Dose: 2 ml Sodium Chloride (Ns Flush) 2 ml IV.FLUSH PRN PRN PRN Reason: FLUSH AFTER USING IV ACCESS <Jesusita Lopez - Last Filed: 03/16/18 12:15> Active Medications: Active Medications Acetaminophen (Tylenol) 650 mg PO Q6H PRN PRN Reason: PAIN 1-10 AND/OR FEVER >101F Last Admin: 03/06/18 20:09 Dose: 650 mg Al Hydroxide/Mg Hydroxide (Milk Of Arianna Liq) 30 ml PO Q12H PRN PRN Reason: Mild Constipation Last Admin: 03/10/18 09:23 Dose: 30 ml Albuterol (Duoneb Neb (Prn)) 1 ampul NEB Q2HR NEB PRN PRN Reason: WHEEZING Last Admin: 03/06/18 03:40 Dose: 1 ampul Amlodipine Besylate (Norvasc) 10 mg PO DAILY [facility] Last Admin: 03/16/18 09:43 Dose: 10 mg Bisacodyl (Dulcolax Supp) 10 mg RECTAL DAILY PRN PRN Reason: SEVERE CONSITIPATION Carvedilol (Coreg) 3.125 mg PO BID [facility] Last Admin: 03/16/18 09:42 Dose: 3.125 mg Dextrose (D50w Vial) 50 ml IV.PUSH UNSCH PRN PRN Reason: PER HYPOGLYCEMIA PROTOCOL Last Admin: 03/07/18 00:31 Dose: 50 ml Doxazosin Mesylate (Cardura) 1 mg PO DAILY [facility] Last Admin: 03/16/18 09:42 Dose: 1 mg Enalaprilat (Vasotec Inj) 2.5 mg IV.PUSH Q6H PRN PRN Reason: SBP > 160 Last Admin: 03/13/18 06:46 Dose: 2.5 mg Famotidine (Pepcid Pf Inj) 10 mg IV.PUSH Q12HR [facility] Last Admin: 03/16/18 09:42 Dose: 10 mg Glucagon (Glucagon Inj) 1 mg OTHER PRN PRN PRN Reason: for Hypoglycemia Protocol Hydralazine HCl (Apresoline) 100 mg PO Q8H [facility] Last Admin: 03/16/18 17:09 Dose: 100 mg Hyoscyamine (Levsin Inj) 0.125 mg IV.PUSH Q6H PRN PRN Reason: INCREASED SECRETIONS Last Admin: 03/11/18 11:46 Dose: 0.125 mg Nicardipine HCl 25 mg/ Sodium (Chloride) 250 mls @ 50 mls/hr IV.CONT TITRATE PRN; Protocol PRN Reason: Per Protocol Last Titration: 03/11/18 22:30 Dose: 0 mg/hr, 0 mls/hr Magnesium Sulfate Inj 4 gm/ (Sodium Chloride) 100 mls @ 50 mls/hr IV.SIG UNSCH PRN PRN Reason: For Magnesium 0.9 - 1.1 mg/dL Magnesium Sulfate Inj 2 gm/ (Sodium Chloride) 100 mls @ 50 mls/hr IV.SIG UNSCH PRN PRN Reason: For Magnesium 1.2 - 1.6 mg/dL Potassium Chloride (Kcl 40 Meq Premix Inj) 40 meq in 100 mls @ 25 mls/hr IV.SIG Q2H PRN PRN Reason: For Potassium 2.8 - 3.2 mEq/L Last Infusion: 03/05/18 15:15 Dose: Infused Potassium Chloride (Kcl 20 Meq Premix Inj) 20 meq in 100 mls @ 50 mls/hr IV.SIG Q2H PRN PRN Reason: For Potassium 3.3 - 3.5 mEq/L Potassium Chloride (Kcl 20 Meq Premix Inj) 20 meq in 100 mls @ 50 mls/hr IV.SIG Q2H PRN PRN Reason: For Potassium 2.8 - 3.2 mEq/L Last Infusion: 03/09/18 01:06 Dose: Infused Potassium Phosphate 30 mmol/ (Sodium Chloride) 260 mls @ 42 mls/hr IV.SIG UNSCH PRN PRN Reason: SEE LABEL COMMENTS Last Infusion: 03/08/18 20:41 Dose: Infused Sodium Phosphate 30 mmol/ (Sodium Chloride) 260 mls @ 42 mls/hr IV.SIG UNSCH PRN PRN Reason: For Phosphorus < 2.5 mg/dL Potassium Chloride (Kcl 40 Meq Premix Inj) 40 meq in 100 mls @ 25 mls/hr IV.SIG UNSCH PRN PRN Reason: For Potassium 3.3 - 3.5 mEq/L Metoclopramide HCl 10 mg/ (Sodium Chloride) 52 mls @ 104 mls/hr IV.SIG Q8H [facility] ; Protocol Last Admin: 03/16/18 15:00 Dose: 104 mls/hr Levofloxacin/Dextrose (Levaquin 500 Mg Premix Inj) 500 mg in 100 mls @ 100 mls/ hr IV.SIG BUNDLER [facility] Stop: 03/18/18 08:59 Insulin Human Regular (Novolin R Correctional Sugar Inj) 0 units SQ Q6HR [facility]; Protocol Last Admin: 03/16/18 19:27 Dose: Not Given Lactulose (Lactulose Liq) 30 ml PO DAILY PRN PRN Reason: SEVERE CONSITIPATION Last Admin: 03/10/18 05:53 Dose: 30 ml Levothyroxine Sodium (Synthroid) 125 mcg PO DAILY@0600 [facility] Last Admin: 03/16/18 06:04 Dose: 125 mcg Magnesium Oxide (Mag-Ox) 800 mg PO UNSCH PRN PRN Reason: For Magnesium 1.2 - 1.6 mg/dL Padimate O (Chapstick) 1 applicatio TOPICAL UNSCH PRN PRN Reason: CHAPPED LIPS Last Admin: 03/12/18 16:00 Dose: 1 applicatio Potassium Bicarb/Potassium Chloride (K-Lyte Cl Eff) 50 meq PO UNSCH PRN PRN Reason: For Potassium 3.3 - 3.5 mEq/L Last Admin: 03/09/18 08:51 Dose: 50 meq Potassium Phosphate (K-Phos Original) 2,000 mg PO Q4H PRN PRN Reason: Phosphorus Less Than 2.5 mg/dL Potassium Phosphate (K-Phos Original) 2,000 mg PO UNSCH PRN PRN Reason: SEE LABEL COMMENTS Senna/Docusate Sodium (Shona-Colace) 1 tab PO BID [facility] Last Admin: 03/16/18 09:43 Dose: Not Given Sennosides (Senokot) 17.2 mg PO Q12H PRN PRN Reason: Moderate Constipation Last Admin: 03/10/18 04:36 Dose: 17.2 mg Sodium Chloride (Ns Flush) 2 ml IV.FLUSH BID [facility] Last Admin: 03/16/18 16:45 Dose: 2 ml Sodium Chloride (Ns Flush) 2 ml IV.FLUSH PRN PRN PRN Reason: FLUSH AFTER USING IV ACCESS <Justin Clancy E - Last Filed: 03/16/18 19:37> Allergies Allergy/AdvReac Type Severity Reaction Status Date / Time Penicillins Allergy Intermediate Hives Verified 03/03/18 07:36 Sulfa (Sulfonamide Allergy Intermediate Hives Verified 03/03/18 07:36 Antibiotics) Home Medications Medication Instructions Recorded Confirmed Type levothyroxine PO WEEKLY 03/13/18 History Exam Vital signs: Vital Signs 03/15/18 12:00 03/15/18 14:00 03/15/18 16:00 Temperature 98.2 F 97.7 F Pulse Rate 86 62 76 Respiratory Rate 24 25 H Blood Pressure 151/85 H 132/76 Pulse Oximetry 96 96 03/15/18 16:10 03/15/18 18:00 03/15/18 19:18 Temperature Pulse Rate 62 67 78 Respiratory Rate 17 22 Blood Pressure Pulse Oximetry 97 03/15/18 20:00 03/15/18 22:00 03/16/18 00:00 Temperature 97.6 F 97.6 F Pulse Rate 69 74 67 Respiratory Rate 20 20 Blood Pressure 147/80 H 163/89 H Pulse Oximetry 96 96 03/16/18 02:00 03/16/18 04:00 03/16/18 04:01 Temperature 97.6 F Pulse Rate 64 78 74 Respiratory Rate 20 20 Blood Pressure 130/73 Pulse Oximetry 94 L 03/16/18 05:57 03/16/18 08:48 Temperature Pulse Rate 69 74 Respiratory Rate 22 Blood Pressure Pulse Oximetry 95 Intake & Output 03/15/18 03/16/18 03/16/18 18:59 06:59 18:59 Intake Total 861 / 861 726 / 726 Output Total 1100 / 1100 800 / 800 Balance -239 / -239 -74 / -74 Weight 71.5 kg Intake: IV 104 / 104 Reglan Inj 10 MG In NS Inj 50 104 / 104 ML @ 104 mls/hr IV.SIG Q8H [facility] Rx#:[id number] Tube Feeding 681 / 681 582 / 582 Tube Irrigant 180 / 180 40 / 40 Output: Stool 0 / 0 Urine Amount (Catheter) 1100 / 1100 800 / 800 Purewick 1100 / 1100 800 / 800 Other: Date of Last Bowel Movement 03/15/18 03/15/18 # Bowel Movements 1 1 # Incontinent Bowel Movements 1 - Constitutional mild distress (Respiratory) - Routine HEENT Exam Head: Present: normocephalic ENT: Present: mucous membranes dry (NG tube intact) - Routine Respiratory Exam Present: stridor (Mild with some snoring respirations but no apparent shortness of breath or respiratory distress for now) - Routine Cardiovascular Exam Present: RRR (Distant, monitor shows sinus rhythm heart rate 78) - Routine Abdominal Exam Present: soft (Round, soft, active bowel sounds, tube feeds Jevity 1.5 at 50 cc an hour) - Routine Neurological Exam Present: alert (Awake, eyes open, does attempt to track verbal stimuli) <Jesusita Lopez M - Last Filed: 03/16/18 12:15> Vital signs: Vital Signs 03/15/18 20:00 03/15/18 22:00 03/16/18 00:00 Temperature 97.6 F 97.6 F Pulse Rate 69 74 67 Respiratory Rate 20 20 Blood Pressure 147/80 H 163/89 H Pulse Oximetry 96 96 03/16/18 02:00 03/16/18 04:00 03/16/18 04:01 Temperature 97.6 F Pulse Rate 64 78 74 Respiratory Rate 20 20 Blood Pressure 130/73 Pulse Oximetry 94 L 03/16/18 05:57 03/16/18 08:00 03/16/18 08:48 Temperature 98.4 F Pulse Rate 69 78 74 Respiratory Rate 18 22 Blood Pressure 140/83 Pulse Oximetry 95 03/16/18 10:00 03/16/18 12:00 03/16/18 14:00 Temperature 98 F Pulse Rate 69 66 70 Respiratory Rate Blood Pressure 142/84 H Pulse Oximetry 100 03/16/18 16:00 Temperature 98 F Pulse Rate 72 Respiratory Rate 16 Blood Pressure 146/89 H Pulse Oximetry 92 L Intake & Output 03/16/18 03/16/18 03/17/18 06:59 18:59 06:59 Intake Total 778 / 778 740 / 740 Output Total 800 / 800 800 / 800 Balance -22 / -22 -60 / -60 Weight 71.5 kg Intake: IV 156 / 156 Reglan Inj 10 MG In NS Inj 50 156 / 156 ML @ 104 mls/hr IV.SIG Q8H [facility] Rx#:[id number] Tube Feeding 582 / 582 640 / 640 Tube Irrigant 40 / 40 100 / 100 Output: Urine Amount (Catheter) 800 / 800 800 / 800 Purewick 800 / 800 800 / 800 Other: Date of Last Bowel Movement 03/15/18 03/15/18 # Bowel Movements 1 # Incontinent Bowel Movements 1 <Justin Clancy - Last Filed: 03/16/18 19:37> Results - Labs CBC & Chem 7: 03/14/18 04:24 03/16/18 04:42 Labs: Laboratory Results - last 24 hr 03/15/18 03/16/18 17:41 04:42 Sodium 145 Potassium 4.0 Chloride 109 H Carbon Dioxide 24.6 Anion Gap 11 BUN 22 H Creatinine 1.03 H Estimated GFR 55 L POC Glucose 135 H Random Glucose 95 Calcium 9.4 <Jessica,Jesusita M - Last Filed: 03/16/18 12:15> - Labs CBC & Chem 7: 03/14/18 04:24 03/16/18 04:42 Labs: Laboratory Results - last 24 hr 03/16/18 03/16/18 04:42 17:42 Sodium 145 Potassium 4.0 Chloride 109 H Carbon Dioxide 24.6 Anion Gap 11 BUN 22 H Creatinine 1.03 H Estimated GFR 55 L POC Glucose 115 H Random Glucose 95 Calcium 9.4 <Justin Clancy - Last Filed: 03/16/18 19:37> Assessment and Plan (1) Increased nutritional needs Status: Acute Code(s): R63.8 - Other symptoms and signs concerning food and fluid intake (2) Aphasic stroke Status: Acute - Plan 57-year-old female admitted to the hospital on 03/03 for pontine hemorrhagic stroke. Patient remains in the intensive care setting has been ventilator management but is now extubated and currently on oxygen at 2 L nasal cannula. Patient does have some snoring respiratory effort but no obvious shortness of breath. Patient's mother is next of kin and will be concerning consents and has agreed to PEG tube placement according to the record. Nutritional needs, currently patient has been managed short-term with NG tube placement and is a phasic and currently unable to maintain her nutritional needs. Patient is allergic to penicillin so antibiotic [employer] for PEG tube placement was changed to Levaquin IV Long-term goal at this point is for PEG tube placement. Speech therapy recommendations after extubation was to maintain n.p.o. status. Current labs show hemoglobin 11.8, WBC count 10.2, and PT/INR 1.2. Patient shows no active bleeding and currently is been managed on Pepcid and Reglan. History of mild anemia at this admission, currently stable hemoglobin at 11.8. Plan Consent for PEG tube placement in a.m. 03/17/2018, scheduled with GI lab N.p.o. at midnight and decompress gastric contents. 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 Clancy, note was written on his behalf <Jesusita Lopez M - Last Filed: 03/16/18 12:15> (1) Increased nutritional needs Status: Acute Code(s): R63.8 - Other symptoms and signs concerning food and fluid intake (2) Aphasic stroke Status: Acute - Attending Attestation Patient seen and examined Agree with above Continue with current supportive care Monitor labs Plan for PEG tomorrow <Justin Clancy - Last Filed: 03/16/18 19:37>
[2018-03-17] MEDS: Insulin NovoLIN Regular Correctional Sugar Inj SQ SCH ×4 (00:29→18:24)
[2018-03-17 04:53] LABS: Calcium 9.1 mg/dL (8.5-10.1); Carbon Dioxide 27.8 meq/L (21.0-32.0); Potassium 3.4 meq/L (3.5-5.1)
[2018-03-17] MEDS: Metoclopramide Inj 10 MG in Sodium Chlor 0.9% Inj 50 ML IV.SIG SCH ×3 (06:05→22:59)
[2018-03-17] MEDS: Levothyroxine 125 MCG Tablet PO SCH (06:05)
[2018-03-17] MEDS: Senna/Docusate Sodium 8.6/50 MG Tablet PO SCH ×2 (08:12→20:25)
[2018-03-17] MEDS: Famotidine PF Inj 20 MG/2 ML Vial IV.PUSH SCH ×2 (08:12→20:25)
[2018-03-17] MEDS: Doxazosin 1 MG Tablet PO SCH (08:12)
[2018-03-17] MEDS: amLODIPine 10 MG Tablet PO SCH (08:12)
[2018-03-17] MEDS: Potassium Chlor 20 mEq Premix 20 MEQ/100 ML PIGGYBACK IV.SIG PRN ×2 (08:14→13:17)
[2018-03-17] MEDS ORDERED: Levofloxacin 500 mg Premix Inj 500 MG/100 ML PIGGYBACK IV.SIG SCH (09:00)
--- NOTE | 2018-03-17 09:36 | P.PNCC ---
Subjective Subjective Remarks/Hospital Course: Patient is a 57-year-old -[place] female who presented to the emergency department today with right upper and lower extremity weakness and slurred speech. Emergency department had difficulty getting detailed history due to impaired speech and acute onset of symptoms. She was unable to tell them when the symptoms started. 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 Dr. Samuel was consulted, he recommended targeting systolic blood pressure 120-130. Patient came in with systolic blood pressure varying from 170-180. She was started on Cardene infusion and critical care medicine was consulted. Patient was almost flaccid on the right side. While in the emergency department patient vomited twice and there was increasing aphasia. Patient was intubated by ER physician for airway protection I evaluated the patient in the emergency department. Currently she is sedated with propofol on the ventilator. Systolic blood pressure 140-150. I recommended increasing Cardene and increasing propofol. I discussed with Dr. Samuel again. We will rescan the patient with a CT brain prior to ICU transfer to rule out increasing hemorrhage or in any obstruction to the fourth ventricle SUBJ 03/04/18: Patient remains intubated sedated with propofol. On Cardene infusion for blood pressure control. Neurosurgery recommends continued medical management with aggressive blood pressure control target 120-160. Repeat CT head yesterday slight increase in the blood, fourth ventricle remain patent. Will repeat CT scan 03/05/18 03/05/18: CT of the head shows stable pontine hemorrhage. Patient currently is heavily sedated. We will start sedation vacation attempt spontaneous breathing trials. 03/06: CT scan without hydrocephalus. Areas of bleed unchanged but large. Brief attempts at spontaneous ventilation has not been successful today. She does continue to open her eyes and track to a voice. 03/07: She gets pretty agitated when sedation is low. Performs well on spontaneous breathing trials. The bleed appears stable at this time without change. We will attempt extubation and find out if she can protect her airway. 03/08: We will continue to perform weaning trials. Will attempt extubation and observe airway closely. Yesterday she was much too agitated to attempt extubation but perhaps today will have more success. Change out Grewal to a wick device. Increasing ventricular ectopy will check electrolytes and replace as needed. No evidence of cardiac injury. 03/09: Remains stable no acute events overnight. Required Cardene which is currently weaned off. Patient noted to have swelling of the tongue and scleral edema, no cuff leak. Day 7 on the vent may need tracheostomy 03/10: Remains intubated sedated with Precedex 0.7 mcg/kg/h. Cardene restart for adequate blood pressure control. Slightly more awake today intermittently follows on the left side. Tongue and left eye swelling improved persistent right eye scleral edema 03/11: Patient was extubated yesterday. Appears to be protecting airway. Intermittently opens eyes, follows commands left upper and lower extremity and somewhat to right lower extremity. Withdraws right upper. Remains on Cardene at 5 mg/hr. I will increase Norvasc to 10 mg daily, increase hydralazine to 100 mg every 8 hours, continue Coreg 6.25 twice daily 03/12: Remains critical but slowly improving. Protecting airway. Attempts to mouth some words. WBC count noted to be elevated but patient is receiving Decadron for tongue swelling. I will discontinue Decadron and Benadryl today. Chest x-ray shows atelectasis 03/13: Persistent moderate hypertension despite 4 drug therapy. Tolerating extubation for 2 days now. Large gastric residuals are worrisome in the context of her swallowing problems. Will add metoclopramide to improve gastric emptying and hopefully avoid aspiration problems. Mild elevation in white blood cell count with light infiltrate on chest x-ray is concerning. Remains afebrile. 03/14: Leukocytosis resolved. Afebrile. Protects airway well. Lethargic. TSH 33, T4 0.6, clearly hypothyroid. Will start with oral supplementation using levothyroxine today. Due to previous atrial and ventricular ectopy I will avoid intravenous thyroid replacement at this time. 03/15: Family has been reluctant to allow for tracheostomy which is highly recommended. The patient clearly cannot control her secretions and it will be tough to keep her from continually aspirating. Tube feedings with metoclopramide assistance will hopefully minimize reflux but her oral secretions remain problematic. Blood pressure is now adequately controlled. Thyroid replacement therapy in progress. 03/16: Patient remains encephalopathic possibly worsened by hypothyroid state. Thyroid replacement has started. Patient's mother has agreed to PEG tube placement but is still considering tracheostomy. 03/17: Remains afebrile. Continues to clear her throat acceptably although I continue my concern for her swallowing difficulties. We are presently evaluating her for possible LTAC or direct rehab transfer. Objective Vital Signs / I&O: Vital Signs 03/16/18 10:00 03/16/18 12:00 03/16/18 14:00 Temperature 98 F Pulse Rate 69 66 70 Respiratory Rate Blood Pressure 142/84 H Pulse Oximetry 100 03/16/18 16:00 03/16/18 19:50 03/16/18 20:00 Temperature 98 F 98.7 F Pulse Rate 72 70 Respiratory Rate 16 19 Blood Pressure 146/89 H 129/75 Pulse Oximetry 92 L 92 L 92 L 03/16/18 22:00 03/17/18 00:00 03/17/18 02:00 Temperature 97.8 F Pulse Rate 72 62 61 Respiratory Rate 16 Blood Pressure 132/74 Pulse Oximetry 96 03/17/18 04:00 03/17/18 06:00 03/17/18 07:31 Temperature 97.6 F Pulse Rate 58 L 58 L Respiratory Rate 24 Blood Pressure 134/86 Pulse Oximetry 99 98 03/17/18 08:00 Temperature 97.8 F Pulse Rate 84 Respiratory Rate 20 Blood Pressure 136/58 L Pulse Oximetry 97 Intake & Output 03/16/18 03/17/18 03/17/18 18:59 06:59 18:59 Intake Total 740 / 740 550 / 550 Output Total 800 / 800 Balance -60 / -60 550 / 550 Weight 72.4 kg Intake: IV 156 / 156 Reglan Inj 10 MG In NS Inj 50 156 / 156 ML @ 104 mls/hr IV.SIG Q8H [facility] Rx#:[id number] Tube Feeding 640 / 640 274 / 274 Tube Irrigant 100 / 100 120 / 120 Output: Urine Amount (Catheter) 800 / 800 Purewick 800 / 800 Other: # Voids 4 Date of Last Bowel Movement 03/15/18 03/15/18 03/15/18 Result Diagrams: 03/14/18 04:24 03/17/18 02:57 Objective Remarks: GEN: 57-year-old -[place] female, calm. HEENT: Atraumatic normocephalic. Pupils are 2 mm reactive. NECK: Supple. No JVD. Airway widely patent but gurgling secretions persist in the upper airway. LUNGS: Air entry equal bilaterally, no wheezes or crackles. Persistent mobile secretions in the upper airway HEART: S1 and S2 normal, no murmur. No JVD. ABDOMEN: Soft. Nondistended, no guarding, bowel sounds present. EXTREMITIES: No pedal edema. Warm and well-perfused. NEUROLOGIC: Eyes open spontaneously, she follows commands left upper and lower extremity and intermittently on right lower extremity. Speech is difficult to understand. 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 Status: Acute (2) Hypertensive emergency Code(s): I16.1 - Hypertensive emergency Status: Acute (3) Hypokalemia Code(s): E87.6 - Hypokalemia Status: Acute (4) Elevated CPK Code(s): R74.8 - Abnormal levels of other serum enzymes Status: Acute (5) Hypothyroidism Code(s): E03.9 - Hypothyroidism, unspecified Status: Acute - Assessment and Plan Plan: NEURO: Acute pontine hemorrhage Acute encephalopathy Right hemiplegia with aphasia -Most likely hypertensive hemorrhage -Remains off all sedation -Target systolic blood pressure less than 120-150 -Target sodium 145-150 -CTA of the head and neck essentially negative -Repeat head CT March 06 without change in the pontine bleed size, no hydrocephalus. RESP/ENT: Respiratory failure-extubated 03/10/2018 -Tolerating extubation last 48 hours, appears to be protecting airway, if she fails needs tracheostomy -DuoNeb every 6 hours scheduled and as needed -EzPAP every 6 hours with breathing treatments -Discontinue Decadron and Benadryl which was started for tongue swelling -More alert after Benadryl was stopped. -Will undoubtedly require tracheostomy for airway protection. CV: Hypertensive emergency -Cardene infusion to keep systolic blood pressure less than 120-150 -Use as needed labetalol for additional control. Scheduled Coreg 6.25 mg twice daily. -Norvasc to 10 mg daily, hydralazine to 100 mg p.o. every 8 hours -IV Lasix 40 mg x1, repeat dose today. -Add Cardura 03/13 and add intravenous KOBE inhibitor as needed -Blood pressure control has remained acceptable for the past several days. GI: -IV famotidine -Tube feeds with Jevity-failed swallow eval -Bowel regimen -Added metoclopramide for problems with excessive gastric residual : Elevated CPK Acute kidney insufficiency-resolved -Monitor renal function closely. Grewal catheter for accurate intake output ID: -Monitor closely for infection HEME: -Monitor CBC, coags ENDO: Hypokalemia Hyperglycemia Hypothyroidism (Clinical and Lab) -Electrolyte replacement per protocol -Sliding scale insulin, if needed -TSH 33, T4 0.6, start levothyroxine 03/14 PO. PROPH: -Bilateral lower extremity SCDs/ROBY. IV famotidine for GI prophylaxis -Chemical DVT prophylaxis is contraindicated -PTT therapeutic. LINES: -Utilize peripheral IVs, central line if needed Overall impression: Acceptable gas exchange but marginal airway protection. Swallowing difficulties are problematic and increases the likelihood of aspiration. A large part of her lethargy may be clinical hypothyroidism. She had a thyroidectomy over 10 years ago and was supposed to be on replacement therapy. Her labs would tend to suggest she has not been taking her replacement therapy. Mother has agreed to PEG tube placement. We will work on disposition to inpatient rehab. Will possibly require an LTAC stay first. (5) Hypothyroidism Qualifiers: Hypothyroidism type: acquired Qualified Code(s): E03.9 - Hypothyroidism, unspecified
[2018-03-17] MEDS ORDERED: Glycopyrrolate Inj 1 MG/5 ML Syringe IV.PUSH ONE (12:00)
--- NOTE | 2018-03-17 17:23 | P.PCN ---
Date of procedure: 03/17/18 Pre-op diagnosis: Hemorrhagic stroke, dysphagia Procedure: PROCEDURE PERFORMED EGD with PEG placement INDICATION FOR PROCEDURE Hemorrhagic stroke, dysphagia PROCEDURE: The procedure, risks and benefits were discussed with Patient/POA and informed consent was obtained. Anesthesia sedated Patient with Diprivan. Patient was placed in the left lateral decubitus position. EGD: The Pentax videoscope was introduced through the oropharynx and advanced to the second portion of the duodenum under direct visualization. Retroflexion was performed in the stomach. FINDINGS: The esophagus this was normal The stomach this was normal The duodenum this was normal Following the evaluation of the stomach and the duodenum the stomach was insufflated with air and the area of PEG placement was identified through indentation and transillumination the area was prepped and draped in usual fashion 5 cc of lidocaine were injected locally a small incision was made then an Angiocath was passed into the stomach through which a guidewire was passed this was retrieved with the scope into that a PEG tube was attached and pulled into place and thereafter secured in usual fashion The patient tolerated procedure well and there are no immediate complications ESTIMATED BLOOD LOSS: None SPECIMENS REMOVED: None COMPLICATIONS: None IMPRESSION: Normal EGD Successful PEG placement PLAN: 1. May use PEG tube for medications today 2. May start feeding tomorrow 3. May obtain nutritional consult for tube feeding 4. Flush tube with 50 cc of water every 4-6 hours 5. Always flush tube after feedings 6. Apply abdominal binder as necessary 7. Clamp G-tube after use and flush. Anesthesia: MAC Surgeon: Justin Clnacy Condition: stable Disposition: no change
[2018-03-17] MEDS: Acetaminophen 325 MG Tablet PO PRN ×2 (18:15→19:02)
[2018-03-18] MEDS: Insulin NovoLIN Regular Correctional Sugar Inj SQ SCH ×3 (00:24→12:16)
--- NOTE | 2018-03-18 04:12 | XR ---
EXAM DATE: 03/18/2018 3:24 AM EDT AGE/SEX: 57 years / Female INDICATIONS: Shortness of breath. CLINICAL DATA: This is the patient's subsequent encounter. Patient reports that signs and symptoms h ave been present for 2 weeks and indicates a pain score of Nonresponsive. MEDICAL/SURGICAL HISTORY: Stroke. None. COMPARISON: [facility] – [place], CHEST 1V SINGLE AP, 03/12/2018. . FINDINGS: A single AP view of the chest demonstrates the lungs to be symmetrically aerated without evidence of mass, infiltrate or effusion. Mild cardiomegaly.. Osseous structures are intact. CONCLUSION: Clear lungs. Mild cardiomegaly. Electronically signed by: Spencer Hudson MD 03/18/2018 4:10 AM EDT
[2018-03-18 05:36] LABS: Baso % (Auto) 0.1 % (0.0-2.0); Eos % (Auto) 0.2 % (0.0-4.0); Hematocrit 30.5 % (35.0-46.0); Hemoglobin 10.4 gm/dL (11.6-15.3); Lymph # (Auto) 0.8 th/mm3 (1.0-4.8); Lymph % (Auto) 5.5 % (9.0-44.0); Mean Corpuscular HGB Conc 34.1 % (32.0-36.0); Mean Corpuscular Volume 96.7 fL (80.0-100.0); Mean Platelet Volume 11.5 fL (7.0-11.0); Mono # (Auto) 0.8 th/mm3 (0.0-0.9); Mono % (Auto) 6.1 % (0.0-8.0); Neut # (Auto) 12.2 th/mm3 (1.8-7.7); Neut % (Auto) 88.1 % (16.0-70.0); Platelet Count 115 th/mm3 (150-450); Red Blood Count 3.15 mil/mm3 (4.00-5.30); Red Cell Distribution Width 14.8 % (11.6-17.2); White Blood Count 13.8 th/mm3 (4.0-11.0)
[2018-03-18] MEDS: Levothyroxine 125 MCG Tablet PO SCH (06:03)
[2018-03-18] MEDS: Metoclopramide Inj 10 MG in Sodium Chlor 0.9% Inj 50 ML IV.SIG SCH (06:04)
[2018-03-18] MEDS: Doxazosin 1 MG Tablet PO SCH (08:42)
[2018-03-18] MEDS: Famotidine PF Inj 20 MG/2 ML Vial IV.PUSH SCH (08:43)
[2018-03-18] MEDS: amLODIPine 10 MG Tablet PO SCH (08:43)
[2018-03-18] MEDS: Senna/Docusate Sodium 8.6/50 MG Tablet PO SCH (08:43)
--- NOTE | 2018-03-18 11:39 | P.DS ---
Date of admission: 03/03/18 09:14 Primary care physician: UNKNOWN Attending physician on discharge: Benton Roa Anticipated date of discharge: 03/18/18 Brief History from admission: Patient is a 57-year-old -[place] female who presented to the emergency department today with right upper and lower extremity weakness and slurred speech. Emergency department had difficulty getting detailed history due to impaired speech and acute onset of symptoms. She was unable to tell them when the symptoms started. 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 Dr. Samuel was consulted, he recommended targeting systolic blood pressure 120-130. Patient came in with systolic blood pressure varying from 170-180. She was started on Cardene infusion and critical care medicine was consulted. Patient was almost flaccid on the right side. While in the emergency department patient vomited twice and there was increasing aphasia. Patient was intubated by ER physician for airway protection I evaluated the patient in the emergency department. Currently she is sedated with propofol on the ventilator. Systolic blood pressure 140-150. I recommended increasing Cardene and increasing propofol. I discussed with Dr. Samuel again. We will rescan the patient with a CT brain prior to ICU transfer to rule out increasing hemorrhage or in any obstruction to the fourth ventricle DS: Diagnosis - Discharge Diagnosis (1) Pontine hemorrhage Status: Acute (2) Acute respiratory failure Status: Acute (3) Hypertensive emergency Status: Acute (4) Hypokalemia Status: Acute (5) Elevated CPK Status: Acute (6) Hypothyroidism Status: Acute (7) Increased nutritional needs Status: Acute DS: Summary Hospital Course: Patient is a 57-year-old -[place] female who presented to the emergency department today with right upper and lower extremity weakness and slurred speech. Emergency department had difficulty getting detailed history due to impaired speech and acute onset of symptoms. She was unable to tell them when the symptoms started. 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 Dr. Samuel was consulted, he recommended targeting systolic blood pressure 120-130. Patient came in with systolic blood pressure varying from 170-180. She was started on Cardene infusion and critical care medicine was consulted. Patient was almost flaccid on the right side. While in the emergency department patient vomited twice and there was increasing aphasia. Patient was intubated by ER physician for airway protection I evaluated the patient in the emergency department. Currently she is sedated with propofol on the ventilator. Systolic blood pressure 140-150. I recommended increasing Cardene and increasing propofol. I discussed with Dr. Samuel again. We will rescan the patient with a CT brain prior to ICU transfer to rule out increasing hemorrhage or in any obstruction to the fourth ventricle SUBJ 03/04/18: Patient remains intubated sedated with propofol. On Cardene infusion for blood pressure control. Neurosurgery recommends continued medical management with aggressive blood pressure control target 120-160. Repeat CT head yesterday slight increase in the blood, fourth ventricle remain patent. Will repeat CT scan 03/05/18 03/05/18: CT of the head shows stable pontine hemorrhage. Patient currently is heavily sedated. We will start sedation vacation attempt spontaneous breathing trials. 03/06: CT scan without hydrocephalus. Areas of bleed unchanged but large. Brief attempts at spontaneous ventilation has not been successful today. She does continue to open her eyes and track to a voice. 03/07: She gets pretty agitated when sedation is low. Performs well on spontaneous breathing trials. The bleed appears stable at this time without change. We will attempt extubation and find out if she can protect her airway. 03/08: We will continue to perform weaning trials. Will attempt extubation and observe airway closely. Yesterday she was much too agitated to attempt extubation but perhaps today will have more success. Change out Grewal to a wick device. Increasing ventricular ectopy will check electrolytes and replace as needed. No evidence of cardiac injury. 03/09: Remains stable no acute events overnight. Required Cardene which is currently weaned off. Patient noted to have swelling of the tongue and scleral edema, no cuff leak. Day 7 on the vent may need tracheostomy 03/10: Remains intubated sedated with Precedex 0.7 mcg/kg/h. Cardene restart for adequate blood pressure control. Slightly more awake today intermittently follows on the left side. Tongue and left eye swelling improved persistent right eye scleral edema 03/11: Patient was extubated yesterday. Appears to be protecting airway. Intermittently opens eyes, follows commands left upper and lower extremity and somewhat to right lower extremity. Withdraws right upper. Remains on Cardene at 5 mg/hr. I will increase Norvasc to 10 mg daily, increase hydralazine to 100 mg every 8 hours, continue Coreg 6.25 twice daily 03/12: Remains critical but slowly improving. Protecting airway. Attempts to mouth some words. WBC count noted to be elevated but patient is receiving Decadron for tongue swelling. I will discontinue Decadron and Benadryl today. Chest x-ray shows atelectasis 03/13: Persistent moderate hypertension despite 4 drug therapy. Tolerating extubation for 2 days now. Large gastric residuals are worrisome in the context of her swallowing problems. Will add metoclopramide to improve gastric emptying and hopefully avoid aspiration problems. Mild elevation in white blood cell count with light infiltrate on chest x-ray is concerning. Remains afebrile. 03/14: Leukocytosis resolved. Afebrile. Protects airway well. Lethargic. TSH 33, T4 0.6, clearly hypothyroid. Will start with oral supplementation using levothyroxine today. Due to previous atrial and ventricular ectopy I will avoid intravenous thyroid replacement at this time. 03/15: Family has been reluctant to allow for tracheostomy which is highly recommended. The patient clearly cannot control her secretions and it will be tough to keep her from continually aspirating. Tube feedings with metoclopramide assistance will hopefully minimize reflux but her oral secretions remain problematic. Blood pressure is now adequately controlled. Thyroid replacement therapy in progress. 03/16: Patient remains encephalopathic possibly worsened by hypothyroid state. Thyroid replacement has started. Patient's mother has agreed to PEG tube placement but is still considering tracheostomy. 03/17: Remains afebrile. Continues to clear her throat acceptably although I continue my concern for her swallowing difficulties. We are presently evaluating her for possible LTAC or direct rehab transfer. 03/18: PEG placed 03/17. Transfer to LTAC today. - Time Spent with Patient Total time spent providing and/or coordinating discharge services: Greater than 30 minutes - Quality: VTE Deep Vein Thrombosis/Pulmonary Embolism Present on Admission: No Exam Vital signs: Vital Signs 03/17/18 12:00 03/17/18 14:00 03/17/18 16:00 Temperature 97.8 F 97.6 F Pulse Rate 68 68 66 Respiratory Rate 17 18 Blood Pressure 120/84 135/86 Pulse Oximetry 97 96 03/17/18 17:27 03/17/18 17:30 03/17/18 17:42 Temperature 98 F Pulse Rate 88 93 H Respiratory Rate 20 21 Blood Pressure 112/64 116/75 Pulse Oximetry 100 100 100 03/17/18 17:44 03/17/18 18:00 03/17/18 20:00 Temperature 97.3 F L 97.5 F L Pulse Rate 96 H 88 76 Respiratory Rate 19 19 Blood Pressure 109/69 135/82 Pulse Oximetry 100 99 03/17/18 22:00 03/18/18 00:00 03/18/18 02:00 Temperature 97.7 F Pulse Rate 82 76 68 Respiratory Rate 18 Blood Pressure 135/72 Pulse Oximetry 99 03/18/18 04:00 03/18/18 06:00 03/18/18 08:00 Temperature 97.5 F L 97.8 F Pulse Rate 62 60 59 L Respiratory Rate 21 13 Blood Pressure 136/84 158/93 H Pulse Oximetry 95 94 L 03/18/18 10:00 Temperature Pulse Rate 65 Respiratory Rate Blood Pressure Pulse Oximetry Intake & Output 03/17/18 03/18/18 03/18/18 18:59 06:59 18:59 Intake Total 812 / 812 104 / 104 Output Total 600 / 600 200 / 200 Balance 212 / 212 -96 / -96 Weight 72.121 kg 69.2 kg Intake: IV 352 / 352 104 / 104 Levaquin 500 mg Premix Inj 500 100 / 100 mg In 100 ml @ 100 mls/hr IV. SIG [facility] Rx#:[id number] Reglan Inj 10 MG In NS Inj 50 52 / 52 104 / 104 ML @ 104 mls/hr IV.SIG Q8H [facility] Rx#:[id number] KCl 20 mEq Premix Inj 20 meq In 200 / 200 100 ml @ 50 mls/hr IV.SIG Q2H [facility] Rx#:[id number] Oral 0 / 0 Tube Feeding 0 / 0 Tube Irrigant 0 / 0 Water Bolus Amount 60 / 60 Anesthesia Amount 400 / 400 Output: Urine 600 / 600 Stool 0 / 0 Urine Amount (Catheter) 200 / 200 Purewick 200 / 200 Other: # Incontinent Voids 2 Date of Last Bowel Movement 03/15/18 03/15/18 03/15/18 # Incontinent Bowel Movements 0 Narrative: GEN: 57-year-old -[place] female, calm. HEENT: Atraumatic normocephalic. Pupils are 2 mm reactive. NECK: Supple. No JVD. Airway widely patent but gurgling secretions persist in the upper airway. LUNGS: Air entry equal bilaterally, no wheezes or crackles. Persistent mobile secretions in the upper airway HEART: S1 and S2 normal, no murmur. No JVD. ABDOMEN: Soft. Nondistended, no guarding, bowel sounds present. EXTREMITIES: No pedal edema. Warm and well-perfused. NEUROLOGIC: Eyes open spontaneously, she follows commands left upper and lower extremity and intermittently on right lower extremity. Speech is difficult to understand. Results Procedures completed during hospitalization: Intubation and mechanical ventilation PEG insertion Labs on day of discharge: Labs from last 24 hours 03/18/18 03/18/18 03/18/18 11:14 09:44 06:15 WBC RBC Hgb Hct MCV MCH MCHC RDW Plt Count MPV Neut % (Auto) Lymph % (Auto) [place] % (Auto) Eos % (Auto) Baso % (Auto) Neut # (Auto) Lymph # (Auto) [place] # (Auto) Eos # (Auto) Baso # (Auto) WBC Differential Differential Comment Potassium 3.6 POC Glucose 101 103 03/18/18 03/17/18 03/17/18 03:43 23:40 18:05 WBC 13.8 H RBC 3.15 L Hgb 10.4 L Hct 30.5 L MCV 96.7 MCH 33.0 MCHC 34.1 RDW 14.8 Plt Count 115 L MPV 11.5 H Neut % (Auto) 88.1 H Lymph % (Auto) 5.5 L [place] % (Auto) 6.1 Eos % (Auto) 0.2 Baso % (Auto) 0.1 Neut # (Auto) 12.2 H Lymph # (Auto) 0.8 L [place] # (Auto) 0.8 Eos # (Auto) 0.0 Baso # (Auto) 0.0 WBC Differential . Differential Comment Auto diff final Potassium POC Glucose 93 103 - Impressions ITS Impressions Head CTA 03/03/18 07:40 CONCLUSION: 1. No large vessel stenosis, aneurysm or thrombosis. Neck CTA 03/03/18 07:40 CONCLUSION: 1. Normal carotid arteries. Head CT 03/05/18 06:00 CONCLUSION: 1. Stable pontine hemorrhage. . Chest X-Ray 03/18/18 04:00 CONCLUSION: Clear lungs. Mild cardiomegaly. Discharge Plan - Discharge Disposition Patient Disposition: 63 Disch Seconds Grader Acute Care - Discharge Condition Condition: Fair - Discharge Order Discharge Orders: Discharge Order (Routine); Ordered 03/18/18 Ordered By: Benton Roa - Discharge Details Anticipated Discharge Date: 03/18/18 - Physicians Team Primary Care Provider: UNKNOWN, Attending Provider: Diallo Mcginnis Other Providers: Angel Samuel MD ; Justin Clancy MD ; Alexey Nino, PhD ; [facility]
--- NOTE | 2018-03-18 14:46 | P.PNGI ---
Subjective Interval history: Resting in the bed G-tube in place no obvious edema or erythema Current hemoglobin 10.4 WBC count 13.8 No nausea vomiting or abdominal pain <Jesusita Lopez M - Last Filed: 03/18/18 14:48> Physical Exam Vital signs: Vital Signs 03/17/18 16:00 03/17/18 17:27 03/17/18 17:30 Temperature 97.6 F 98 F Pulse Rate 66 88 93 H Respiratory Rate 18 20 21 Blood Pressure 135/86 112/64 116/75 Pulse Oximetry 96 100 100 03/17/18 17:42 03/17/18 17:44 03/17/18 18:00 Temperature 97.3 F L Pulse Rate 96 H 88 Respiratory Rate 19 Blood Pressure 109/69 Pulse Oximetry 100 100 03/17/18 20:00 03/17/18 22:00 03/18/18 00:00 Temperature 97.5 F L 97.7 F Pulse Rate 76 82 76 Respiratory Rate 19 18 Blood Pressure 135/82 135/72 Pulse Oximetry 99 99 03/18/18 02:00 03/18/18 04:00 03/18/18 06:00 Temperature 97.5 F L Pulse Rate 68 62 60 Respiratory Rate 21 Blood Pressure 136/84 Pulse Oximetry 95 03/18/18 08:00 03/18/18 10:00 03/18/18 12:00 Temperature 97.8 F 97.5 F L Pulse Rate 59 L 65 62 Respiratory Rate 13 19 Blood Pressure 158/93 H 146/87 H Pulse Oximetry 94 L 96 03/18/18 14:00 Temperature Pulse Rate 60 Respiratory Rate Blood Pressure Pulse Oximetry Intake & Output 03/17/18 03/18/18 03/18/18 18:59 06:59 18:59 Intake Total 812 / 812 104 / 104 Output Total 600 / 600 200 / 200 Balance 212 / 212 -96 / -96 Weight 72.121 kg 69.2 kg Intake: IV 352 / 352 104 / 104 Levaquin 500 mg Premix Inj 500 100 / 100 mg In 100 ml @ 100 mls/hr IV. 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 TIKA Rx#:[id number] Reglan Inj 10 MG In NS Inj 50 52 / 52 104 / 104 ML @ 104 mls/hr IV.SIG Q8H TIKA Rx#:[id number] KCl 20 mEq Premix Inj 20 meq In 200 / 200 100 ml @ 50 mls/hr IV.SIG Q2H PRN Rx#:[id number] Oral 0 / 0 Tube Feeding 0 / 0 Tube Irrigant 0 / 0 Water Bolus Amount 60 / 60 Anesthesia Amount 400 / 400 Output: Urine 600 / 600 Stool 0 / 0 Urine Amount (Catheter) 200 / 200 Purewick 200 / 200 Other: # Incontinent Voids 2 Date of Last Bowel Movement 03/15/18 03/15/18 03/15/18 # Incontinent Bowel Movements 0 - Constitutional no acute distress - Routine HEENT Exam Head: Present: normocephalic (Eyes open does track) ENT: Present: mucous membranes moist ( voice) - Routine Neck Exam Present: supple - Routine Respiratory Exam Present: accessory muscle use - Routine Cardiovascular Exam Present: S1, S2 - Routine Abdominal Exam Present: soft, normoactive bowel sounds, ostomy (G-tube knee replacement on 03/17) - Routine Skin Exam Present: intact - Routine Neurological Exam Present: alert (Awake eyes open, a phasic) - Urinary Catheter Management Indwelling Urethral Catheter Cath placed during this visit: yes, but has since been removed by the nurse Reason for continuing: Continue criteria not met Insertion date: 03/03/18 Insertion time: 09:02 Removal date: 03/08/18 Removal time: 08:05 2000 Cath placed during this visit: yes, but has since been removed by the nurse Reason for continuing: Continue criteria not met Removal date: 03/08/18 Removal time: 08:15 Purewick Cath placed during this visit: no Reason for continuing: Not indwelling catheter <Jesusita Lopez - Last Filed: 03/18/18 14:48> Vital signs: Vital Signs 03/17/18 17:27 03/17/18 17:30 03/17/18 17:42 Temperature 98 F Pulse Rate 88 93 H Respiratory Rate 20 21 Blood Pressure 112/64 116/75 Pulse Oximetry 100 100 100 03/17/18 17:44 03/17/18 18:00 03/17/18 20:00 Temperature 97.3 F L 97.5 F L Pulse Rate 96 H 88 76 Respiratory Rate 19 19 Blood Pressure 109/69 135/82 Pulse Oximetry 100 99 03/17/18 22:00 03/18/18 00:00 03/18/18 02:00 Temperature 97.7 F Pulse Rate 82 76 68 Respiratory Rate 18 Blood Pressure 135/72 Pulse Oximetry 99 03/18/18 04:00 03/18/18 06:00 03/18/18 08:00 Temperature 97.5 F L 97.8 F Pulse Rate 62 60 59 L Respiratory Rate 21 13 Blood Pressure 136/84 158/93 H Pulse Oximetry 95 94 L 03/18/18 10:00 03/18/18 12:00 03/18/18 14:00 Temperature 97.5 F L Pulse Rate 65 62 60 Respiratory Rate 19 Blood Pressure 146/87 H Pulse Oximetry 96 Intake & Output 03/17/18 03/18/18 03/18/18 18:59 06:59 18:59 Intake Total 812 / 812 104 / 104 Output Total 600 / 600 200 / 200 Balance 212 / 212 -96 / -96 Weight 72.121 kg 69.2 kg Intake: IV 352 / 352 104 / 104 Levaquin 500 mg Premix Inj 500 100 / 100 mg In 100 ml @ 100 mls/hr IV. 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 TIKA Rx#:[id number] Reglan Inj 10 MG In NS Inj 50 52 / 52 104 / 104 ML @ 104 mls/hr IV.SIG Q8H TIKA Rx#:[id number] KCl 20 mEq Premix Inj 20 meq In 200 / 200 100 ml @ 50 mls/hr IV.SIG Q2H PRN Rx#:[id number] Oral 0 / 0 Tube Feeding 0 / 0 Tube Irrigant 0 / 0 Water Bolus Amount 60 / 60 Anesthesia Amount 400 / 400 Output: Urine 600 / 600 Stool 0 / 0 Urine Amount (Catheter) 200 / 200 Purewick 200 / 200 Other: # Incontinent Voids 2 Date of Last Bowel Movement 03/15/18 03/15/18 03/15/18 # Incontinent Bowel Movements 0 - Urinary Catheter Management Indwelling Urethral Catheter Cath placed during this visit: no 2000 Cath placed during this visit: no Purewick Cath placed during this visit: no <Justin Clancy E - Last Filed: 03/18/18 16:21> Results - Labs CBC & Chem 7: 03/18/18 03:43 03/18/18 09:44 Laboratory Results - last 24 hr 08/21/18 08/21/18 08/22/18 18:05 23:40 03:43 WBC 13.8 H RBC 3.15 L Hgb 10.4 L Hct 30.5 L MCV 96.7 MCH 33.0 MCHC 34.1 RDW 14.8 Plt Count 115 L MPV 11.5 H Neut % (Auto) 88.1 H Lymph % (Auto) 5.5 L [place] % (Auto) 6.1 Eos % (Auto) 0.2 Baso % (Auto) 0.1 Neut # (Auto) 12.2 H Lymph # (Auto) 0.8 L [place] # (Auto) 0.8 Eos # (Auto) 0.0 Baso # (Auto) 0.0 WBC Differential . Differential Comment Auto diff final Potassium POC Glucose 103 93 03/18/18 03/18/18 03/18/18 06:15 09:44 11:14 WBC RBC Hgb Hct MCV MCH MCHC RDW Plt Count MPV Neut % (Auto) Lymph % (Auto) [place] % (Auto) Eos % (Auto) Baso % (Auto) Neut # (Auto) Lymph # (Auto) [place] # (Auto) Eos # (Auto) Baso # (Auto) WBC Differential Differential Comment Potassium 3.6 POC Glucose 103 101 - Imaging Impressions Chest X-Ray 03/18/18 04:00 CONCLUSION: Clear lungs. Mild cardiomegaly. - Procedures Intubation and mechanical ventilation PEG insertion <Jesusita Lopez - Last Filed: 03/18/18 14:48> - Labs CBC & Chem 7: 03/18/18 03:43 03/18/18 09:44 Laboratory Results - last 24 hr 03/17/18 03/17/18 03/18/18 18:05 23:40 03:43 WBC 13.8 H RBC 3.15 L Hgb 10.4 L Hct 30.5 L MCV 96.7 MCH 33.0 MCHC 34.1 RDW 14.8 Plt Count 115 L MPV 11.5 H Neut % (Auto) 88.1 H Lymph % (Auto) 5.5 L [place] % (Auto) 6.1 Eos % (Auto) 0.2 Baso % (Auto) 0.1 Neut # (Auto) 12.2 H Lymph # (Auto) 0.8 L [place] # (Auto) 0.8 Eos # (Auto) 0.0 Baso # (Auto) 0.0 WBC Differential . Differential Comment Auto diff final Potassium POC Glucose 103 93 03/18/18 03/18/18 03/18/18 06:15 09:44 11:14 WBC RBC Hgb Hct MCV MCH MCHC RDW Plt Count MPV Neut % (Auto) Lymph % (Auto) [place] % (Auto) Eos % (Auto) Baso % (Auto) Neut # (Auto) Lymph # (Auto) [place] # (Auto) Eos # (Auto) Baso # (Auto) WBC Differential Differential Comment Potassium 3.6 POC Glucose 103 101 - Imaging Impressions Chest X-Ray 03/18/18 04:00 CONCLUSION: Clear lungs. Mild cardiomegaly. <Justin Clancy E - Last Filed: 03/18/18 16:21> Assessment and Plan (1) Increased nutritional needs Status: Acute Code(s): R63.8 - Other symptoms and signs concerning food and fluid intake (2) Aphasic stroke Status: Acute - Plan 57-year-old female admitted to the hospital on 03/03 for pontine hemorrhagic stroke. Patient remains in the intensive care setting has been ventilator management but is now extubated and currently on oxygen at 2 L nasal cannula. Patient does have some snoring respiratory effort but no obvious shortness of breath. Patient's mother is next of kin and will be concerning consents and has agreed to PEG tube placement according to the record. Nutritional needs, currently patient has been managed short-term with NG tube placement and is a phasic and currently unable to maintain her nutritional needs. Patient is allergic to penicillin so antibiotic animation artist for PEG tube placement was changed to Levaquin IV Long-term goal at this point is for PEG tube placement. Speech therapy recommendations after extubation was to maintain n.p.o. status. Current labs show hemoglobin 11.8, WBC count 10.2, and PT/INR 1.2. Patient shows no active bleeding and currently is been managed on Pepcid and Reglan. History of mild anemia at this admission, currently stable hemoglobin at 11.8. 03/18/2018 patient is status post PEG tube placement on day 1. Tube was placed on 03/17/2018 without any difficulties per Dr. Clancy. Recommendations to change pegs site dressing every day or as needed to maintain dry skin around PEG tube site. Hemoglobin stable with out any obvious bleeding 10.4. WBC count 13.8. We will start feedings today per nutritional consult and goal rate 50 cc an hour, Jevity 1.5 GI will sign off please call for any further needs thank you for this consult. Monitoring check residuals Plan Diet tube feed Monitor labs Supportive care Patient was seen per myself and Dr. Clancy, note was written on his behalf <Jesusita Lopez M - Last Filed: 03/18/18 14:48> (1) Increased nutritional needs Status: Acute Code(s): R63.8 - Other symptoms and signs concerning food and fluid intake (2) Aphasic stroke Status: Acute - Attending Attestation Patient seen and examined Agree with above Continue with current supportive care Monitor labs Not much to add from a GI perspective we will sign off <Justin Clancy - Last Filed: 03/18/18 16:21>
== END 2018-03-18 15:20 ==
LOC: NEPE 07:29 → NEDA 09:14 → N03 10:40
PROVIDERS: ADMIT Internal Medicine; ATTEND Internal Medicine
PROC: PANENDO (2018-03-17 16:55)